=== PATIENT | male | born 1985 ===

== ENCOUNTER 2020-09-10 08:29 | Outpatient (REF) | payer MEDICARE, MEDICAID, SELFPAY | END 2020-09-10 08:30 | disposition home or self-care (01) | LOC: HO.LAB 08:29 | PROVIDERS: PCP Family Medicine; Visit Provider Internal Medicine | DX: Z20.828 Contact with and (suspected) exposure to other viral communicable diseases (principal) | CPT/HCPCS: C9803; U0003 ==

== ENCOUNTER → 2020-09-16 11:01 | Outpatient (BNVA) | payer MEDICARE, MEDICAID, SELFPAY | PROVIDERS: PCP Family Medicine; Referring Provider Family Medicine; Visit Provider Physician Assistant | DX: R10.31 Right lower quadrant pain (principal); K62.5 Hemorrhage of anus and rectum; K64.9 Unspecified hemorrhoids | CPT/HCPCS: Q3014 ==

== ENCOUNTER 2020-09-17 09:14 | Outpatient (REF) | payer MEDICARE, MEDICAID, SELFPAY ==
[2020-09-17 10:13] LABS: MANUAL DIFF FLAG NO
[2020-09-17 10:17] LABS: Basophils Percent Auto 0.4 % (0-2); Eosinophils Absolute Auto 0.1 X10*3/uL (0.0-0.4); Eosinophils Percent Auto 1.2 % (0-4); Hematocrit 45.6 % (42-52); Hemoglobin 14.6 g/dl (14.0-18.0); Imm Gran Abs Auto 0.05 X10*3/uL (0.00-0.03); Imm Gran Pct Auto 0.7 % (0.0-0.4); Lymphocytes Absolute Auto 1.5 X10*3/uL (1.2-4.9); Lymphocytes Percent Auto 22.2 % (20-40); Mean Corpuscular Volume 87.4 fL (80-98); Mean Platelet Volume 11.2 fL (9.4-12.4); Monocytes Absolute Auto 0.4 X10*3/uL (0.1-1.2); Monocytes Percent Auto 5.8 % (2-11); Neutrophils Absolute Auto 4.9 X10*3/uL (2.0-8.3); Neutrophils Percent Auto 69.7 % (45-73); Platelet Count 280 X10*3/uL (160-400); Red Blood Count 5.22 X10*6/uL (4.60-5.80); Red Cell Distribution Width 12.1 % (11.0-16.0)
[2020-09-17 11:06] LABS: Alanine Aminotransferase 30 U/L (0-40); Albumin Level 4.1 g/dL (3.5-5.0); Alkaline Phosphatase 98 U/L (39-117); Anion Gap 11 (12-20); Aspartate Amino Transferase 19 U/L (5-37); Bilirubin Total 0.6 mg/dL (0.0-1.0); Blood Urea Nitrogen 14 mg/dL (9-16); Calcium 8.7 mg/dL (8.4-10.2); Carbon Dioxide 25 mmol/L (22-29); Chloride 104 mmol/L (96-108); Estimated Glomerular Filt Rate > 60; Glucose Random 108 mg/dL (60-115); Potassium 4.3 mmol/l (3.3-5.1); Sodium 136 mmol/L (135-145)
[2020-09-17 11:07] LABS: Thyroid Stimulating Hormone 0.83 uIU/mL (0.32-4.0)
[2020-09-18 17:56] LABS: CRP High Sensitivity 5.4 mg/L
== END 2020-09-17 09:15 | disposition home or self-care (01) ==
LOC: HO.LAB 09:14
PROVIDERS: PCP Family Medicine; Visit Provider Physician Assistant
DX: K59.09 Other constipation (principal); R10.11 Right upper quadrant pain; R10.31 Right lower quadrant pain; R19.7 Diarrhea, unspecified; I10 Essential (primary) hypertension
CPT/HCPCS: 36415; 80053; 84443; 85025; 86141

== ENCOUNTER 2020-09-30 11:52 | Outpatient (REF) | payer MEDICARE, MEDICAID, SELFPAY ==
--- NOTE | 2020-09-30 11:53 | CT_ITS ---
EXAMINATION: CT ENTEROGRAPHY ABDOMEN AND PELVIS WITH CONTRAST CLINICAL INFORMATION: Right lower quadrant pain. COMPARISON: 01/12/2019 CT scan of the abdomen and pelvis. TECHNIQUE: Study performed with oral VoLumen (1350 mL) and 480 mL of water to distend the abdomen. The patient was injected with 85 mL Omnipaque 350 intravenous contrast which was administered without adverse effect. Coronal and sagittal reformatted images were obtained at the technologist's workstation. This CT examination was performed using dose optimization techniques as appropriate, variously including the following: *Automated exposure control *Adjustment of mA and/or kV according to patient size (this includes techniques or standardized protocols for targeted exams where dose is matched to indication/reason for exam; i.e. extremities or head) *Use of iterative reconstruction technique DLP: 1032 mGy-cm FINDINGS: GASTROINTESTINAL FINDINGS: Stomach: Well-distended and normal in appearance. Small intestine: Satisfactorily distended and normal in appearance. Large intestine: Well-distended and normal in appearance. No perirectal changes demonstrated. The appendix is normal. Additional findings: No abnormal enhancement of the vasa recta or significant mesenteric or retroperitoneal lymphadenopathy is seen. No abdominal abscess or fistulous tract demonstrated. ABDOMINAL AND PELVIC CT FINDINGS: Liver, gallbladder, biliary tract: Unremarkable. Pancreas: Unremarkable. Spleen: 14.9 cm in cc dimension without focal abnormality. Adrenal glands: Right adrenal gland measuring approximately 1.4 cm (image 26, series 7). No left adrenal abnormality. Kidneys/ureters: Urinary bladder: Unremarkable. Lymphovascular structures: Unremarkable. Bones: T11-T12 and L5-S1 mild degenerative disc disease. Lung bases: Unremarkable. CT/CT enterography IMPRESSION: 1. No evidence for acute appendicitis. Previously seen high attenuation foci in the appendix lumen are no longer visualized and likely represented residual contrast. No other significant bowel abnormality. 2. Small right adrenal nodule remains indeterminate on this single phase study, but the interval stability favors benignity and likely represents an adrenal adenoma. 3. Borderline splenic enlargement without significant change.
[2020-09-30] MEDS: iohexoL 350 MG/ML 100 ML INFUS..BTL 85 ML IV (14:01)
== END 2020-09-30 11:53 | disposition home or self-care (01) ==
LOC: HO.US 11:52
PROVIDERS: PCP Family Medicine; Visit Provider Physician Assistant
DX: R10.31 Right lower quadrant pain (principal); R79.82 Elevated C-reactive protein (CRP)
CPT/HCPCS: 74177; J9999; Q9967

== ENCOUNTER 2020-10-01 08:07 | Outpatient (REF) | payer MEDICARE, MEDICAID, SELFPAY ==
--- NOTE | 2020-10-01 | US_ITS ---
EXAMINATION: US ABDOMEN COMPLETE CLINICAL INFORMATION: Right upper quadrant pain. COMPARISON: CT abdomen and pelvis 01/12/2019. X-ray abdomen 09/10/2012 and 02/04/2011. Ultrasound abdomen 05/18/2011 and 11/04/2009. TECHNIQUE: Real-time imaging of the abdominal viscera. FINDINGS: PANCREAS: Normal. ABDOMINAL AORTA: The proximal, mid, and distal segments are normal in caliber. INFERIOR VENA CAVA: Visualized portions are normal. LIVER: The liver is normal in size. The liver contour is normal. There is mild increased echogenicity of the liver. No focal hepatic lesion. There is no intrahepatic biliary duct dilatation seen. GALLBLADDER: Normal. The gallbladder is physiologically distended without evidence of stones, sludge, polyps, wall thickening or pericholecystic fluid. COMMON BILE DUCT: Normal in caliber measuring 0.3 cm in diameter. RIGHT KIDNEY: Normal. No hydronephrosis. No renal calculi or focal parenchymal lesions. The kidney measures 12.9 cm in maximum dimension. LEFT KIDNEY: Normal. No hydronephrosis. No renal calculi or focal parenchymal lesions. The kidney measures 13.0 cm in maximum dimension. SPLEEN: Normal. The spleen measures 12.6 cm in maximum dimension. FREE FLUID: None. US/US abdomen complete IMPRESSION: Hepatic steatosis, otherwise no focal lesion seen.
== END 2020-10-01 08:08 | disposition home or self-care (01) ==
LOC: HO.US 08:07
PROVIDERS: PCP Family Medicine; Visit Provider Family Medicine
DX: R10.11 Right upper quadrant pain (principal)
CPT/HCPCS: 76700

== ENCOUNTER → 2020-10-07 15:27 | Outpatient (BNVA) | payer MEDICARE, MEDICAID, SELFPAY | PROVIDERS: PCP Family Medicine; Visit Provider Physician Assistant | DX: R10.31 Right lower quadrant pain (principal) | CPT/HCPCS: Q3014 ==

== ENCOUNTER → 2020-11-18 13:42 | Outpatient (BNVA) | payer MEDICARE, MEDICAID, SELFPAY | PROVIDERS: PCP Family Medicine; Referring Provider Family Medicine; Visit Provider Physician Assistant | DX: R79.82 Elevated C-reactive protein (CRP) (principal); R10.31 Right lower quadrant pain | CPT/HCPCS: Q3014 ==

== ENCOUNTER 2020-12-24 12:15 | Day surgery (SDC) | payer MEDICARE, MEDICAID, SELFPAY ==
[2020-12-19 12:12] VITALS: BMI 41.8
--- NOTE | 2020-12-22 14:45 | P.CONAN_ITS ---
Documented by User: Vaishnavi Brothers 12/23/20 12:06 HPI - Anesthesia Eval Consult details Narrative: 35yo M for Colonoscopy PMFSH Active Problems Active Problems: All Active Problems (Updated 12/19/20 @ 14:36 by Dora Haywood) RLQ abdominal pain (Acute) Elevated C-reactive protein (CRP) (Acute) HTN (hypertension) (Acute) Past Medical History Medical History (Updated 12/19/20 @ 14:36 by Dora Haywood) Abdominal pain Anxiety History of palpitations HTN (hypertension) Paroxysmal atrial fibrillation Sleep apnea SVT (supraventricular tachycardia) Family History Family History Father Alive and well Mother Family history of high blood pressure Surgical History Surgical History (Updated 12/19/20 @ 12:08 by Dora Haywood) H/O cardiac radiofrequency ablation History of adjustable gastric banding History of colonoscopy History of removal of laparoscopic gastric banding device Hx of endoscopy Social History Social History (Updated 12/19/20 @ 12:08 by Dora Haywood) Alcohol intake: never Smoking Status: Former smoker Smoking Quit Date: 2004 Use of substances other than those prescribed or required for medical reasons: No Have you been hit, kicked, punched, or otherwise hurt by someone within the past year? If so, by whom?: No Advance Directives: No Advance Directives Information Provided: No Advance Directives on File: No Meds Allergies Allergy/AdvReac Type Severity Reaction Status Date / Time Penicillins Allergy Intermediate RASH Verified 12/19/20 11:57 Home Medications Medication Instructions Recorded Confirmed Last Taken Type metoprolol succinate 50 mg 50 mg PO DAILY 09/16/20 12/19/20 Unknown History tablet,extended release 24 hr pregabalin 75 mg capsule 75 mg PO DAILY 10/08/20 12/19/20 Unknown History clonazepam 0.5 mg tablet 0.5 mg PO DAILY 11/18/20 12/19/20 Unknown History dicyclomine 10 mg PO BID PRN 12/19/20 12/19/20 Unknown History Exam Exam Date and Time: December 22, 2020 1445 Height,Weight and Vital Signs: Height 5 ft 11 in Weight 136.078 kg Pertinent Lab Results Pertinent Lab Results: Laboratory Tests 09/17/20 09/17/20 09:26 09:26 WBC 7.0 Hgb 14.6 Hct 45.6 Plt Count 280 Sodium 136 Potassium 4.3 Chloride 104 Carbon Dioxide 25 BUN 14 Creatinine 0.89 Narrative Narrative: Echo 2019 Nml LV size, wall thickness and systolic function. LVEF 55-60%. Nml LV diastolic function. Nml RV size and function No significant valve abnormalities Assessment and Plan Assessment Anesthesia Assessment: Chart Reviewed Documented by User: Jen Arias 12/24/20 13:28 [facility] Past Medical History Medical History (Updated 12/19/20 @ 14:36 by Dora Haywood) Abdominal pain Anxiety History of palpitations HTN (hypertension) Paroxysmal atrial fibrillation Sleep apnea SVT (supraventricular tachycardia) Family History Family History Father Alive and well Mother Family history of high blood pressure Surgical History Surgical History (Updated 12/19/20 @ 12:08 by Dora Haywood) H/O cardiac radiofrequency ablation History of adjustable gastric banding History of colonoscopy History of removal of laparoscopic gastric banding device Hx of endoscopy Social History Social History (Updated 12/19/20 @ 12:08 by Dora Haywood) Alcohol intake: never Smoking Status: Former smoker Smoking Quit Date: 2004 Use of substances other than those prescribed or required for medical reasons: No Have you been hit, kicked, punched, or otherwise hurt by someone within the past year? If so, by whom?: No Advance Directives: No Advance Directives Information Provided: No Advance Directives on File: No Meds Allergies Allergy/AdvReac Type Severity Reaction Status Date / Time Penicillins Allergy Intermediate RASH Verified 12/19/20 11:57 Home Medications Medication Instructions Recorded Confirmed Last Taken Type metoprolol succinate 50 mg 50 mg PO DAILY 09/16/20 12/19/20 Unknown History tablet,extended release 24 hr pregabalin 75 mg capsule 75 mg PO DAILY 10/08/20 12/19/20 Unknown History clonazepam 0.5 mg tablet 0.5 mg PO DAILY 11/18/20 12/19/20 Unknown History dicyclomine 10 mg PO BID PRN 12/19/20 12/19/20 Unknown History Exam Airway Mallampati Class: II TM Dist: >3cm Neck ROM: Full Heart: RRR Lungs: CTAcBL Assessment and Plan Assessment Anesthesia Assessment: Anesthesia Plan Discussed and Chart Reviewed Final Anesthetic Review NPO: Yes (Sip water meds) ASA Class: III Final Preanesthetic Review: No Changes in Pt Med Stat and Consent Obtained/Reviewed Patient Risk: Intermediate Procedure Risk: Intermediate Anesthetic Plan Anesthetic Plan: MAC: Disposition: Standard PACU
[2020-12-24 12:43] VITALS: BP 162/93; PULSE 85; RESP 20; TEMP 37.1; O2SAT 98; BMI 41.8
[2020-12-24] MEDS: Lactated Ringers 1,000 ML 100 ML IVCONT (13:19)
--- NOTE | 2020-12-24 13:20 | P.HPSUR_ITS ---
Pre-Procedural Eval Section B Chief Complaint: right lower quadrant pain Relevant Family History (Specify if Yes): No Relevant Social History: None Present Medications: see Short Stay Collaborative assessment Medical History: Significant History (Abdominal pain Anxiety History of palpitations HTN (hypertension) Paroxysmal atrial fibrillation Sleep apnea SVT (supraventricular tachycardia)) History of Previous Operations: Relevant previous surgery/procedure and date(s) (gastric banding, cardiac ablation) Allergies: Allergies Allergy/AdvReac Type Severity Reaction Status Date / Time Penicillins Allergy Intermediate RASH Verified 12/19/20 11:57 Review of Systems Sugical H&P ROS: Negative: Constitution, Cardiovascular, Respiratory, Neurological, Psychiatric, Hem-Onc, Allergic/Immunologic, Gastrointestinal, Genitourinary, Musculoskeletal, Integumentary, Endocrine and Eyes/Ears/Nos e/Throat Exam Surgical H&P Exam: Normal: HEENT, Normal: Heart, Normal: Lungs, Normal: Extremities, Normal: Abdomen, Normal: Skin and Normal: Neurological Plan Diagnosis/Plan: Unchanged I have reviewed the history and physical and performed a pertinent physical examination on my patient. No changes have occurred unless specified.
--- NOTE | 2020-12-24 13:21 | PM.OP ---
Brief Operative Note Date of Service: 12/24/20 Pre-op diagnosis: RLQ pain and diarrhea Post-op diagnosis: same Procedure: see op note Surgeon: Rola Alfred MD Anesthesia: MAC Estimated blood loss (mL): 0 Condition: stable Disposition: PACU
--- NOTE | 2020-12-24 13:22 | P.OP_ITS ---
Operative Note Operative Note Date of Service: 12/24/20 Narrative: Operative Information Procedure Description: Colonoscopy COLONOSCOPY Instrument: Olympus variable stiffness pediatric scope 190L Colonoscopy Monitoring: Vital signs and clinical assessment, continuous EKG monitoring, Pulse oximetry, Carbon Dioxide monitoring and blood pressure monitoring were done throughout the procedure. Colon withdrawal time was 12 minutes. Procedure: The patient was placed in the left lateral decubitis position and pre-procedure medications were administered. After a digital rectal examination of the ano-rectum, the video colonoscope was inserted into the rectum and advanced through the colon to the cecum/TI. The colonoscope was slowly withdrawn in a retrograde panoramic fashion and the colon mucosa was carefully examined including a retroflexed view of the rectum. Findings and interventions are described below. Procedure Difficulty: easy Findings: Terminal Ileum-nodular lymphoid hyperplasia, bx taken of TI bx taken from right colon, transverse/left and rectum in separate jars Cecum:normal Ascending Colon: normal Transverse Colon -normal Descending Colon:normal Sigmoid Colon: normal Rectum: Retroflexion with small internal hemorrhoids, grade I Anorectum - normal Colon preparation: [place] Bowel Preparation Scale Right colon; 2 Transverse colon: 2 Left colon; 2 (0 = Unprepared colon segment with mucosa not seen due to solid stool that cannot be cleared. 1 = Portion of mucosa of the colon segment seen, but other areas of the colon segment not well seen due to staining, residual stool and/or opaque liquid. 2 = Minor amount of residual staining, small fragments of stool and/or opaque liquid, but mucosa of colon segment seen well. 3 = Entire mucosa of colon segment seen well with no residual staining, small fragments of stool or opaque liquid) Impression and Post Procedure Diagnosis: internal hemorrhoids Plan: High fiber diet leaflet Avoid straining at stool, epsom salts and sitz bath, anusol supps or cream Repeat Colonoscopy aged 45 yrs of age or earlier if clinically indicated consider CTe or MRe if ongoing sx, check immunoglobulins for CVID Above findings were reviewed with the patient and relevant handouts were provided if indicated.
[2020-12-24 15:04] VITALS: BP 146/95; PULSE 88; RESP 14; TEMP 36.2; O2SAT 100
[2020-12-24 15:19] VITALS: BP 147/90; PULSE 80; RESP 17; O2SAT 100
[2020-12-24 15:34] VITALS: BP 154/85; PULSE 66; RESP 17; O2SAT 98
== END 2020-12-24 15:58 | disposition home or self-care (01) ==
PROVIDERS: PCP Family Medicine; Visit Provider Internal Medicine Gastroenterology
PROC: 0DJD8ZZ Inspection of Lower Intestinal Tract, Via Natural or Artificial Opening Endoscopic (ICD-10-PCS; CPT 45378; principal; 2020-12-24 14:00)
DX: R10.31 Right lower quadrant pain (principal); R19.7 Diarrhea, unspecified; K63.89 Other specified diseases of intestine; K64.0 First degree hemorrhoids; R79.82 Elevated C-reactive protein (CRP); I10 Essential (primary) hypertension; G47.33 Obstructive sleep apnea (adult) (pediatric); Z98.84 Bariatric surgery status; Z79.899 Other long term (current) drug therapy; Z88.0 Allergy status to penicillin
CPT/HCPCS: 45380; 88305; J2250

== ENCOUNTER → 2021-01-07 10:41 | Outpatient (BNVA) | payer MEDICARE, MEDICAID, SELFPAY | PROVIDERS: PCP Family Medicine; Visit Provider Physician Assistant | DX: Z13.89 Encounter for screening for other disorder (principal) | CPT/HCPCS: Q3014 ==

== ENCOUNTER → 2021-04-22 09:32 | Outpatient (BNVA) | payer MEDICARE, MEDICAID, SELFPAY | PROVIDERS: PCP Family Medicine; Visit Provider Physician Assistant | CPT/HCPCS: Q3014 ==

== ENCOUNTER 2021-04-24 15:43 | Outpatient (REF) | payer MEDICARE, MEDICAID, SELFPAY ==
--- NOTE | ~2021-04-24 | XR_ITS ---
EXAMINATION: XR KNEE, RIGHT CLINICAL INFORMATION: Right knee pain. COMPARISON: 03/22/2013 TECHNIQUE: 4 view right knee study. FINDINGS: There is no evidence of acute fracture or dislocation of the right knee. There is a small right knee effusion. Joint spaces are maintained. No destructive bony lesions. There appears be some edema seen involving the patellar tendon. Bone island is seen within the proximal tibia. XR/XR knee RT 4V IMPRESSION: No significant bony abnormality of the right knee. Small right knee effusion. Appearance of edematous change involving the patellar tendon.
== END 2021-04-24 15:44 | disposition home or self-care (01) ==
LOC: HO.XRAY 15:43
PROVIDERS: PCP Family Medicine; Visit Provider Family Medicine
DX: M25.561 Pain in right knee (principal)
CPT/HCPCS: 73564

== ENCOUNTER 2021-05-09 14:29 | Emergency (ER) | payer MEDICARE, MEDICAID, SELFPAY ==
[2021-05-09 14:33] VITALS: BP 146/92; PULSE 86; RESP 16; TEMP 36.7; O2SAT 97; BMI 40.4
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
[2021-05-09] MEDS: diphenhydrAMINE HCL 25 MG TABLET 50 MG PO (15:16)
[2021-05-09] MEDS: predniSONE 20 MG TABLET 40 MG PO (15:17)
[2021-05-09] MEDS: Ibuprofen 600 MG TABLET PO (15:17)
== END 2021-05-09 15:20 | disposition home or self-care (01) ==
PROVIDERS: Emergency Provider Emergency Medicine; PCP Family Medicine
DX: T63.441A Toxic effect of venom of bees, accidental (unintentional), initial encounter (principal); Y92.9 Unspecified place or not applicable
CPT/HCPCS: 99283; Q0163

== ENCOUNTER 2021-06-13 11:21 | Emergency (ER) | payer MEDICARE, MEDICAID, SELFPAY ==
[2021-06-13 11:34] VITALS: BP 148/99; PULSE 86; RESP 16; TEMP 36.9; O2SAT 99; BMI 41.8
--- NOTE | 2021-06-13 12:25 | ED_ITS ---
HPI - Back Pain/Injury General Chief Complaint: Back Pain/Injury Stated Complaint: back pain Time Seen by Provider: 06/13/21 12:18 Source: patient Mode of arrival: ambulatory Limitations: no limitations History of Present Illness MD elicited complaint: back pain Pertinent past history: prior back pain Onset (ago): day(s) Timing: constant and progressively worsening Severity: severe Pain scale (0-10): 10 Similar Symptoms Previously: Yes Quality: stabbing, aching and throbbing Location: lumbar spine Radiation: buttocks, left upper leg and right upper leg Exacerbating factors: movement, walking and lifting Relieving factors: none Associated symptoms: denies other symptoms Treatments prior to arrival: other (He has tried [id number] medication along with baclofen and gabapentin and no symptomatic relief) Work related injury: No Related Data Home Medications Medication Instructions Recorded Confirmed metoprolol succinate 50 mg 50 mg PO DAILY 09/16/20 04/22/21 tablet,extended release 24 hr clonazepam 0.5 mg tablet 0.5 mg PO DAILY 11/18/20 04/22/21 Previous Rx's Medication Instructions Recorded dicyclomine 10 mg capsule 10 mg PO BID PRN #60 cap 04/21/21 diphenhydramine HCl 25 mg capsule 25 - 50 mg PO Q6H PRN #20 cap 05/09/21 ibuprofen 600 mg tablet 600 mg PO Q6H PRN #20 tab 05/09/21 acetaminophen 500 mg tablet 1,000 mg PO QID PRN #14 tab 06/13/21 (Tylenol Extra Strength) cyclobenzaprine 10 mg tablet 10 mg PO Q8H #10 tab 06/13/21 ibuprofen 800 mg tablet 800 mg PO Q8H PRN #14 tab 06/13/21 lidocaine HCl 4 % topical cream 1 appl TOPICAL BID PRN #120 g 06/13/21 (Aspercreme (lidocaine HCl)) oxycodone 5 mg tablet 5 mg PO BID PRN #14 tab 06/13/21 Allergies Allergy/AdvReac Type Severity Reaction Status Date / Time Penicillins Allergy Intermediate RASH Verified 06/13/21 11:40 Review of Systems Review of Systems: Constitutional : No trauma, No Weight loss, No Fever, No Chills, ENT/Mouth : No Hearing loss, No Ear Pain, No Nasal Congestion, No Sinus Pain, No Hoarseness, No sore throat, No Rhinorrhea, No Swallowing Difficulty Cardiovascular : No Chest Pain, No SOB Respiratory : No Cough, No Dyspnea Gastrointestinal : No Nausea, No Vomiting, No Diarrhea, No abdominal Pain, No Hematochezia, No Melena Genitourinary : No Dysuria, No Urinary Frequency, No Hematuria, No Urinary or Bowel Incontinence/retention Musculoskeletal : + Back pain, No neck pain, No joint stiffness, No joint swelling Skin : No Skin Lesions, No rash or signs of infection Neuro : No Weakness, No radiation, No Numbness, No Paresthesias, No headache, no loss of bowel or bladder incontinence, no saddle anesthesia, Focal weakness, No radiation Denies history of IV drug usage. Yes all other systems are reviewed and are negative [facility] Past Medical History Attestation statement: The following information was validated with the patient. Medical History Abdominal pain Anxiety History of palpitations HTN (hypertension) Paroxysmal atrial fibrillation Sleep apnea SVT (supraventricular tachycardia) Surgical History H/O cardiac radiofrequency ablation History of adjustable gastric banding History of colonoscopy History of removal of laparoscopic gastric banding device Hx of endoscopy Family History Family History Father Alive and well Mother Family history of high blood pressure Social History Social History Household Members: Spouse and Children Alcohol intake: never Advance Directives: No Advance Directives Information Provided: Yes Current occupational status: unemployed Physical Exam 2 Vital Signs: Vital Signs: Last Vital Signs Temp 98.4 F 06/13/21 11:34 Pulse 86 06/13/21 11:34 Resp 16 06/13/21 11:34 BP 148/99 H 06/13/21 11:34 Pulse Ox 99 06/13/21 11:34 Body Mass Index 41.8 vital signs have been reviewed as normal and appeared to be correct. Blood pressure normal. Heart rate normal. Respiration rate normal. Temperature normal. Oxygen saturation normal. Appearance: Alert. Oriented X3. No acute distress. Head: Normal external exam. Normocephalic. Atraumatic. No Sanches signs noted. No raccoon eyes noted Eyes: PERRLA. EOMI. Conjunctiva and sclera normal. Eyelids normal. ENT: EAC normal. TM's Normal. Pharynx normal. Uvula midline. Moist mucous membranes. No trismus noted. No drooling noted. No muffled voice noted. Neck: Normal inspection. Neck supple. FROM. No adenopathy. Thyroid Normal. No meningeal signs. No neck mass noted. CVS: Normal heart rate and rhythm. Heart sound normal. No murmurs noted. Pulses normal throughout. Respiratory: No respiratory distress. Painless inspiration. Breath sounds normal. No wheezes/rales/rhonchi noted. Chest nontender. No accessory muscle usage noted or decreased air movement noted. Abdomen: Soft and nontender. Bowel sounds normal in all 4 quadrants. No distention noted. No organomegaly noted. No visible injury noted. Back: No CVA tenderness. Full range of motion noted. No obvious deformities, or edema. Mild para-spinal muscular tenderness from lumbar region to coccyx. Full ROM in back and lower extremities. 5/5 strength hip extension/flexion, abduction, adduction. Mild Lumbar pain with hip flexion against resistance. Straight leg raise test negative on right; Straight leg raise test negative on left; Reflexes normal ankle and knee bilaterally; EHL motor strength normal bilaterally. No rashes/lesion/induration/fluctuance or signs infection noted. Skin: Skin warm and dry. Normal skin color. Normal skin turgor. No rashes/lesions/lacerations noted. Extremities: No lower extremity edema. Extremities exhibit normal range of motion. Extremities nontender. Neuro: Oriented X 3. No motor deficit. No sensory deficit. Reflexes normal. Patient has a normal steady gait. Course Course Course Narrative: Pt c likely muscular pain, but could be herniated disc. Neuro exam shows no deficits. Not c/w AAA/epidural abscess/dissection.No high risk Hx (Incont, fever, immunosupp, recent surgery/LP, coag, signif trauma, wt loss, puls mass, hx/o Ca, TB, or IVDU) to warrant MRI/CT today. Not c/w Pyelo/UTI/kidney stone/spinal fx. Not cauda equina syndrome. Imaging not currently indicated. DC c meds and f/u. MDM - Back Pain/Injury Medical Records Attestation: I reviewed the patient's medical records. Discharge Plan Discharge Clinical Impression: Lumbar radiculopathy, Strain of lumbar region Patient Disposition: Home, Self-Care Instructions: Lumbar Radiculopathy (ED), Lower Back Exercises (ED) Prescriptions: New lidocaine HCl [Aspercreme (lidocaine HCl)] 4 % cream 1 appl topical BID PRN (Reason: pain) Qty: 120 RF: 0 cyclobenzaprine 10 mg tablet 10 mg PO Q8H Qty: 10 RF: 0 ibuprofen 800 mg tablet 800 mg PO Q8H PRN (Reason: pain) Qty: 14 RF: 0 acetaminophen [Tylenol Extra Strength] 500 mg tablet 1,000 mg PO QID PRN (Reason: fever or pain) Qty: 14 RF: 0 oxycodone 5 mg tablet 5 mg PO BID PRN (Reason: pain) Qty: 14 RF: 0 No Action dicyclomine 10 mg capsule 10 mg PO BID PRN (Reason: Abdominal Pain) Qty: 60 RF: 0 diphenhydramine HCl 25 mg capsule 25 - 50 mg PO Q6H PRN (Reason: allergic reaction) Qty: 20 RF: 0 ibuprofen 600 mg tablet 600 mg PO Q6H PRN (Reason: pain) Qty: 20 RF: 0 metoprolol succinate 50 mg tablet extended release 24 hr 50 mg PO DAILY RF: 0 clonazepam 0.5 mg tablet 0.5 mg PO DAILY RF: 0 Referrals: Traci Ruiz MD [Primary Care Provider] - 2 days Print Language: Spanish
== END 2021-06-13 12:48 | disposition home or self-care (01) ==
PROVIDERS: Emergency Provider Emergency Medicine; PCP Family Medicine
DX: M54.16 Radiculopathy, lumbar region (principal); S39.012A Strain of muscle, fascia and tendon of lower back, initial encounter; X58.XXXA Exposure to other specified factors, initial encounter; Y93.9 Activity, unspecified; Y92.9 Unspecified place or not applicable; Y99.9 Unspecified external cause status
CPT/HCPCS: 99283

== ENCOUNTER → 2021-06-24 12:03 | Outpatient (BNVA) | payer MEDICARE, MEDICAID, SELFPAY | PROVIDERS: PCP Family Medicine; Visit Provider Physician Assistant | DX: Z13.89 Encounter for screening for other disorder (principal) | CPT/HCPCS: Q3014 ==

== ENCOUNTER 2022-03-13 08:22 | Emergency (ER) | payer OTHER, SELFPAY | END 2022-03-13 10:55 | disposition left against medical advice (07) | PROVIDERS: Emergency Provider Emergency Medicine; PCP Family Medicine | DX: H57.9 Unspecified disorder of eye and adnexa (principal) ==

== ENCOUNTER 2022-03-13 12:09 | Emergency (ER) | payer OTHER, SELFPAY ==
[2022-03-13 12:51] VITALS: BP 142/88; PULSE 76; RESP 18; TEMP 36; O2SAT 98; BMI 38.7
[2022-03-13] MEDS: Tetracaine HCl/PF 0.5% Oph Sol 4 ML DROPS 3 DROP EYE-LEFT (15:21)
[2022-03-13] MEDS: Fluorescein Sodium STRIP 1 STRIP EYE-LEFT (15:21)
--- NOTE | 2022-03-13 15:24 | ED.EYEPROB ---
HPI - Eye Problem General Chief complaint: Eye Problems Stated complaint: F/B Right Eye Time Seen by Provider: 03/13/22 15:10 Source: patient Mode of arrival: ambulatory Limitations: no limitations History of Present Illness HPI Narrative: Patient presents emergency department for evaluation of a foreign body to his left eye. He reports that 2 days ago he was working on his car when he felt something fall into his eye. Since then he has been feeling burning pain, itchiness, and redness. He presented to an urgent care today, where he was found to have 2 foreign bodies present. A single foreign body was removed with a needle, but the 2nd was unable to be removed. He was advised to come to the emergency department for further evaluation. He is a contact lens wear, but is not currently wearing his contact lenses. MD chief complaint: eye pain, eye redness and eye injury Onset (ago): day(s) Duration: constant Location: left eye Eye Symptoms: burning, redness, pain, foreign body sensation and itching Related Data Home Medications Medication Instructions Recorded Confirmed metoprolol succinate 50 mg 50 mg PO DAILY 09/16/20 04/22/21 tablet,extended release 24 hr clonazepam 0.5 mg tablet 0.5 mg PO DAILY 11/18/20 04/22/21 Previous Rx's Medication Instructions Recorded dicyclomine 10 mg capsule 10 mg PO BID PRN #60 cap 04/21/21 diphenhydramine HCl 25 mg capsule 25 - 50 mg PO Q6H PRN #20 cap 05/09/21 ibuprofen 600 mg tablet 600 mg PO Q6H PRN #20 tab 05/09/21 acetaminophen 500 mg tablet 1,000 mg PO QID PRN #14 tab 06/13/21 (Tylenol Extra Strength) cyclobenzaprine 10 mg tablet 10 mg PO Q8H #10 tab 06/13/21 ibuprofen 800 mg tablet 800 mg PO Q8H PRN #14 tab 06/13/21 lidocaine HCl 4 % topical cream 1 appl TOPICAL BID PRN #120 g 06/13/21 (Aspercreme (lidocaine HCl)) oxycodone 5 mg tablet 5 mg PO BID PRN #14 tab 06/13/21 tobramycin 0.3 % eye drops 2 drp OPHTHALMIC-LEFT Q6H 5 Days 03/13/22 #5 ml Allergies Allergy/AdvReac Type Severity Reaction Status Date / Time Penicillins Allergy Intermediate RASH Verified 03/13/22 12:53 Review of Systems Review of Systems: Eye: Positive pain. Positive redness. Positive foreign body sensation. Yes all other systems are reviewed and are negative [facility] Past Medical History Attestation statement: The following information was validated with the patient. Source: old records reviewed Medical History Abdominal pain Anxiety History of palpitations HTN (hypertension) Paroxysmal atrial fibrillation Sleep apnea SVT (supraventricular tachycardia) Surgical History H/O cardiac radiofrequency ablation History of adjustable gastric banding History of colonoscopy History of removal of laparoscopic gastric banding device Hx of endoscopy Family History Family History Father Alive and well Mother Family history of high blood pressure Social History Social History Household Members: Spouse and Children Alcohol intake: never Advance Directives: No Advance Directives Information Provided: No Current occupational status: unemployed Physical Exam Vital Signs: Vital Signs: Last Vital Signs Temp 96.8 F 03/13/22 12:51 Pulse 76 03/13/22 12:51 Resp 18 03/13/22 12:51 BP 142/88 H 03/13/22 12:51 Pulse Ox 98 03/13/22 12:51 BMI result Body Mass Index 38.7 Vital signs have been reviewed as normal and appeared to be correct. Blood pressure normal.? Heart rate normal.? Respiration rate normal. Temperature normal.? Oxygen saturation normal. Appearance: Alert.?Oriented to person, place and time. No acute distress.?Normal affect. Eyes: Pupils equal, round and reactive to light. EOMi. Left sclera significantly injected, conjunctival erythema. One very small foreign body present in the to the cornea injury, just over the iris, corneal abrasion inferior to the iris was fluroscein uptake ENT: Pharynx normal.?? Neck: Normal inspection.? Neck supple.?? CVS: Heart sounds normal. Normal heart rate and rhythm.? Pulses normal.?? Respiratory: No respiratory distress.? Lung sounds clear to auscultation bilaterally?? Abdomen: Soft and non-tender. Skin: Skin warm and dry.? Normal skin color.? ?? Extremities: No lower extremity edema.? Neuro: Moves all extremities spontaneously. Sensation intact bilaterally. No motor deficits. Ambulates with normal steady gait. Course Course Course Narrative: Patient is a 36-year-old male presents emergency department for evaluation of left eye foreign body sensation and redness. On exam there was a visible foreign body to the cornea, use of a cotton tip swab was able to remove a small black foreign body, but appears to still have presence of foreign body that is unable to be removed. Fluorescein stain reveals a significant corneal abrasion inferior to the iris. Patient reports that he has been rubbing his eyes a lot since this happened. Not consistent with periorbital cellulitis, orbital cellulitis, or hyphema. Visual acuity is intact. Discussed plan of care with patient to avoid rubbing on eyes, ophthalmic antibiotic drops, not to wear contact lenses, advised reasons return back to the emergency department, and advised follow-up with Ophthalmology Dr. Aguillon in 2-3 days. [facility] - Eye Problem Medical Records Attestation: I reviewed the patient's medical records. Discharge Plan Discharge Clinical Impression: Acute foreign body of cornea, Corneal abrasion Patient Disposition: Home, Self-Care Instructions: Corneal Abrasion (ED), Eye Foreign Body (ED) Additional Instructions: We were able to remove part of the foreign body from URI in the emergency department, it appears as though there is a small amount of foreign body that remains that was unable to be removed. You also have an abrasion/scratch of your cornea. You have been given antibiotic eyedrops to take for this. Take them 4 times a day for 5 days. Contact the eye doctors office on Tuesday morning to arrange for a follow-up appointment for evaluation. Return to the emergency department with any new or worsening symptoms or concerns Prescriptions: New tobramycin 0.3 % drops 2 drp ophthalmic-Left Q6H 5 Days Qty: 5 0RF No Action dicyclomine 10 mg capsule 10 mg PO BID PRN (Reason: Abdominal Pain) Qty: 60 0RF Rx Instructions: Take 1 tablet daily, may increase to b.i.d.prn diphenhydramine HCl 25 mg capsule 25 - 50 mg PO Q6H PRN (Reason: allergic reaction) Qty: 20 0RF ibuprofen 600 mg tablet 600 mg PO Q6H PRN (Reason: pain) Qty: 20 0RF lidocaine HCl [Aspercreme (lidocaine HCl)] 4 % cream 1 appl topical BID PRN (Reason: pain) Qty: 120 0RF cyclobenzaprine 10 mg tablet 10 mg PO Q8H Qty: 10 0RF ibuprofen 800 mg tablet 800 mg PO Q8H PRN (Reason: pain) Qty: 14 0RF acetaminophen [Tylenol Extra Strength] 500 mg tablet 1,000 mg PO QID PRN (Reason: fever or pain) Qty: 14 0RF oxycodone 5 mg tablet 5 mg PO BID PRN (Reason: pain) Qty: 14 0RF metoprolol succinate 50 mg tablet extended release 24 hr 50 mg PO DAILY 0RF clonazepam 0.5 mg tablet 0.5 mg PO DAILY 0RF Referrals: Andre Aguillon [Physician] - 1 week Interventions: ED Discharge Assessment Last Done: 03/13/22 15:58 Discharge Date/Time: 03/13/22 16:01
== END 2022-03-13 16:01 | disposition home or self-care (01) ==
PROVIDERS: Emergency Provider Emergency Medicine; PCP Family Medicine
DX: T15.02XA Foreign body in cornea, left eye, initial encounter (principal); I10 Essential (primary) hypertension; I48.0 Paroxysmal atrial fibrillation; X58.XXXA Exposure to other specified factors, initial encounter; Y93.9 Activity, unspecified; Y92.9 Unspecified place or not applicable; Y99.9 Unspecified external cause status
CPT/HCPCS: 99281; 99283

== ENCOUNTER 2022-06-23 13:13 | Outpatient (REF) | payer OTHER, SELFPAY ==
[2022-06-23 13:24] LABS: MANUAL DIFF FLAG NO
[2022-06-23 13:56] LABS: Basophils Percent Auto 0.4 % (0-2); Eosinophils Absolute Auto 0.1 X10*3/uL (0.0-0.4); Eosinophils Percent Auto 0.7 % (0-4); Hematocrit 44.6 % (42.0-52.0); Hemoglobin 14.6 g/dl (14.0-18.0); Imm Gran Abs Auto 0.03 X10*3/uL (0.00-0.03); Imm Gran Pct Auto 0.4 % (0.0-0.4); Lymphocytes Absolute Auto 1.4 X10*3/uL (1.2-4.9); Lymphocytes Percent Auto 19.2 % (20-40); Mean Corpuscular HGB Conc 32.7 g/dl (31.0-36.0); Mean Corpuscular Volume 85.6 fL (80.0-98.0); Mean Platelet Volume 11.1 fL (9.4-12.4); Monocytes Absolute Auto 0.4 X10*3/uL (0.1-1.2); Monocytes Percent Auto 5.4 % (2-11); Neutrophils Absolute Auto 5.4 x10*3/uL (2.0-8.3); Neutrophils Percent Auto 73.9 % (45-73); Platelet Count 263 X10*3/uL (160-400); Red Blood Count 5.21 X10*6/uL (4.60-5.80); Red Cell Distribution Width 12.6 % (11.0-16.0); White Blood Count 7.4 X10*3/uL (4.8-10.8)
[2022-06-23 14:14] LABS: Alanine Aminotransferase 11 U/L (0-40); Albumin Level 4.3 g/dL (3.5-5.0); Alkaline Phosphatase 78 U/L (39-117); Anion Gap 12 (12-20); Aspartate Amino Transferase 12 U/L (5-37); Bilirubin Total 0.6 mg/dL (0.0-1.0); Blood Urea Nitrogen 12 mg/dL (9-16); Calcium 9.4 mg/dL (8.4-10.2); Carbon Dioxide 29 mmol/L (22-29); Chloride 104 mmol/L (96-108); Estimated Glomerular Filt Rate > 60; Glucose Random 93 mg/dL (60-115); Potassium 4.4 mmol/L (3.3-5.1); Sodium 141 mmol/L (135-145); Total Protein 7.1 g/dL (6.5-8.0)
[2022-06-23 14:50] LABS: Erythrocyte Sedimentation Rate 3 MM/HR (0-15)
== END 2022-06-23 13:14 | disposition home or self-care (01) ==
LOC: HO.LAB 13:13
PROVIDERS: PCP Family Medicine; Visit Provider Physician Assistant
DX: R10.9 Unspecified abdominal pain (principal); K52.9 Noninfective gastroenteritis and colitis, unspecified; R11.2 Nausea with vomiting, unspecified; R79.82 Elevated C-reactive protein (CRP)
CPT/HCPCS: 36415; 80053; 85025; 85652; 86140; 99212

== ENCOUNTER 2022-08-12 07:51 | Outpatient (REF) | payer OTHER, SELFPAY ==
--- NOTE | ~2022-08-12 | US_ITS ---
EXAMINATION: US ABDOMEN COMPLETE CLINICAL INFORMATION: Unspecified abdominal pain. COMPARISON: Ultrasound abdomen complete 10/01/2020. CT enterography abdomen and pelvis with contrast 09/30/2020. CT abdomen and pelvis 01/12/2019. X-ray abdomen 09/10/2012. TECHNIQUE: Real-time imaging of the abdominal viscera. FINDINGS: PANCREAS: Visualized body and the head of the pancreas is homogeneous in echotexture. The tail is obscured by overlying gas. ABDOMINAL AORTA: The proximal, mid, and distal segments are normal in caliber. INFERIOR VENA CAVA: Visualized portions are normal. LIVER: Normal. The liver is normal in size. The liver contour is normal. Parenchymal echogenicity is normal. No focal hepatic lesion. There is no intrahepatic biliary duct dilatation seen. GALLBLADDER: Normal. The gallbladder is physiologically distended without evidence of stones, sludge, polyps, wall thickening or pericholecystic fluid. COMMON BILE DUCT: Normal in caliber measuring 0.3 cm in diameter. RIGHT KIDNEY: Normal. No hydronephrosis. No renal calculi or focal parenchymal lesions. The kidney measures 12.6 cm in maximum dimension. LEFT KIDNEY: Normal. No hydronephrosis. No renal calculi or focal parenchymal lesions. The kidney measures 13.2 cm in maximum dimension. SPLEEN: Normal. The spleen measures 12.2 cm in maximum dimension. FREE FLUID: None. US/US abdomen complete IMPRESSION: Unremarkable complete abdominal ultrasound.
== END 2022-08-12 07:52 | disposition home or self-care (01) ==
LOC: HO.US 07:51
PROVIDERS: Visit Provider Physician Assistant
DX: R10.9 Unspecified abdominal pain (principal)
CPT/HCPCS: 76700

== ENCOUNTER 2022-08-23 13:50 | Outpatient (REF) | payer OTHER, SELFPAY ==
--- NOTE | ~2022-08-23 | CT_ITS ---
EXAMINATION: CT ENTEROGRAPHY ABDOMEN AND PELVIS WITH CONTRAST CLINICAL INFORMATION: Iron deficiency COMPARISON: Ultrasound 08/12/2022, CT 09/30/2020 TECHNIQUE: Study performed with oral VoLumen (1350 mL) and 480 mL of water to distend the abdomen. The patient was injected with 85 mL Omnipaque 350 intravenous contrast which was administered without adverse effect. Coronal and sagittal reformatted images were obtained at the technologist's workstation. This CT examination was performed using dose optimization techniques as appropriate, variously including the following: *Automated exposure control *Adjustment of mA and/or kV according to patient size (this includes techniques or standardized protocols for targeted exams where dose is matched to indication/reason for exam; i.e. extremities or head) *Use of iterative reconstruction technique DLP: 835 mGy-cm FINDINGS: GASTROINTESTINAL FINDINGS: Stomach: Well-distended and normal in appearance. Small intestine: Satisfactorily distended and normal in appearance. Large intestine: Well-distended and normal in appearance. No perirectal changes demonstrated. The appendix is normal. Additional findings: No abnormal enhancement of the vasa recta or significant mesenteric or retroperitoneal lymphadenopathy is seen. No abdominal abscess or fistulous tract demonstrated. ABDOMINAL AND PELVIC CT FINDINGS: Liver, gallbladder, biliary tract: Normal. Pancreas: Normal. Spleen: Spleen borderline enlarged, 13.6 cm craniocaudal. Adrenal glands and kidneys: 1.6 cm homogeneous right adrenal lesion. This had noncontrast density less than 10 Hounsfield units on the prior CT scan 03/28/2017 consistent with a lipid rich adrenal adenoma for which no imaging follow-up is recommended. It has slowly increased in size, measuring 1.2 cm in diameter 03/28/2017, also consistent with a benign process. Normal left adrenal gland. Symmetric enhancement of the bilateral kidneys with no calculi or hydronephrosis. Ureters and bladder: Normal. Lymphovascular structures: Normal caliber aorta. No lymphadenopathy. Bones: Degenerative disc disease at L5-S1. Degenerative changes of the bilateral hips and sacroiliac joints. Lung bases: Lung bases are clear. CT/CT enterography IMPRESSION: No acute CT findings.
[2022-08-23] MEDS: iohexoL 350 MG/ML 100 ML INFUS..BTL IV (15:52)
== END 2022-08-23 13:51 | disposition home or self-care (01) ==
LOC: HO.US 13:50
PROVIDERS: Visit Provider Physician Assistant
DX: D50.9 Iron deficiency anemia, unspecified (principal)
CPT/HCPCS: 74177; Q9967

== ENCOUNTER 2022-09-16 10:46 | Outpatient (REF) | payer OTHER, SELFPAY ==
[2022-09-16 12:39] LABS: Anion Gap 11 (12-20); Blood Urea Nitrogen 13 mg/dL (9-16); Calcium 9.6 mg/dL (8.4-10.2); Carbon Dioxide 28 mmol/L (22-29); Chloride 106 mmol/L (96-108); Estimated Glomerular Filt Rate > 60; Glucose Random 79 mg/dL (60-115); Potassium 4.6 mmol/L (3.3-5.1); Sodium 140 mmol/L (135-145)
== END 2022-09-16 10:47 | disposition home or self-care (01) ==
LOC: HO.LAB 10:46
PROVIDERS: PCP Family Medicine; Visit Provider Physician Assistant
DX: I48.0 Paroxysmal atrial fibrillation (principal)
CPT/HCPCS: 36415; 80048

== ENCOUNTER 2023-05-02 11:14 | Emergency (ER) | payer OTHER, SELFPAY ==
[2023-05-02 11:18] VITALS: BP 143/96; PULSE 83; RESP 18; TEMP 36.7; O2SAT 99; BMI 41.8
--- NOTE | 2023-05-02 11:26 | ED.CHESTPAIN ---
HPI - Chest Pain General Chief Complaint: Chest Pain Stated Complaint: Chest tightness/Diff breathing/Back pain Time Seen by Provider: 05/02/23 14:24 History of Present Illness HPI narrative: Patient is a 38-year-old male presenting today with having chest tightness. The pain is radiating from the left shoulder to the front. Positive history of hypertension. No history of diabetes, high cholesterol, mi. Patient is from home. No cardiac workup in the past. No history of leg swelling. No history of travel. No history of blood clots. No history of cancer. The pain is made worse with movement of the left shoulder. Movement of the right shoulder causes no pain. No diaphoresis. No stress test. Related Data Home Medications Medication Instructions Recorded Confirmed clonazepam 0.5 mg tablet 0.5 mg PO DAILY 11/18/20 06/23/22 lisinopril 10 mg tablet 10 mg PO DAILY 06/23/22 06/23/22 metoprolol succinate 50 mg 100 mg PO DAILY 06/23/22 06/23/22 tablet,extended release 24 hr Previous Rx's Medication Instructions Recorded cyclobenzaprine 10 mg tablet 10 mg PO Q8H Muscle spasm #10 tabs 06/13/21 dicyclomine 10 mg capsule 10 mg PO TID #90 caps 06/23/22 ondansetron 4 mg disintegrating 4 mg PO DAILY #20 tabs 06/23/22 tablet Allergies Allergy/AdvReac Type Severity Reaction Status Date / Time Penicillins Allergy Intermediate RASH Verified 06/23/22 12:20 Review of Systems Review of Systems: No fever no chills no diaphoresis. No cough and no congestion or respiratory symptoms. Yes all other systems are reviewed and are negative [facility] Past Medical History Attestation statement: The following information was validated with the patient. Medical History Abdominal pain Anxiety History of palpitations HTN (hypertension) Paroxysmal atrial fibrillation Sleep apnea SVT (supraventricular tachycardia) Surgical History H/O cardiac radiofrequency ablation History of adjustable gastric banding History of colonoscopy History of removal of laparoscopic gastric banding device Hx of endoscopy Family History Family History Father Alive and well Mother Family history of high blood pressure Social History Social History Household Members: Spouse and Children Alcohol intake: never Advance Directives: No Advance Directives Information Provided: No Current occupational status: unemployed Physical Exam Vital Signs: Vital Signs: Last Vital Signs Temp 98.0 F 05/02/23 11:18 Pulse 83 05/02/23 11:18 Resp 18 05/02/23 11:18 BP 143/96 H 05/02/23 11:18 Pulse Ox 99 05/02/23 11:18 O2 Del Method Room Air 05/02/23 11:18 BMI result Body Mass Index 41.8 Appearance: Alert. Oriented X3. No acute distress. Eyes: Pupils equal, round and reactive to light. ENT: Pharynx normal. Neck: Normal inspection. Neck supple. No lymph nodes noted. No crepitus CVS: Normal heart rate and rhythm. Pulses normal. Normal S1 and S2 Respiratory: No respiratory distress. Breath sounds normal. No Wheezing. No rales Abdomen: Soft and nontender. No rigidity. No distention. good BS x4 Skin: Skin warm and dry. Normal skin color. Normal skin turgor. Extremities: No lower extremity edema. Neurovascular intact to all extremities. No Lacerations. No Rash Neuro: Oriented X 3. No motor deficit. No sensory deficit. Moving all extermities. No slurred speech Course Course Course Narrative: RME; 38 yold male presents to the ED for chest pain that began twenty ago while doing work on his tire. labs, EKG, and chest xray orderred. Medical Decision Making Medical Decision Making [facility] Narrative: Patient's chest pain atypical. Has pain worse with movement of the left shoulder. No pain on movement of the right shoulder. Is 38 years old he does have a history of hypertension. But no other cardiac risk factors. Patient's EKG was normal. Cardiac enzymes x2 sets were negative. Heart score is less than 3. Patient's chest x-ray showed no evidence of pneumonia no pneumothorax. Will discharge patient home close follow-up on an outpatient basis. Differential Diagnosis Differential Diagnoses: The differential diagnosis associated with the presentation includes ACS, pneumonia, pneumothorax, dissection, aneurysm Lab Data [facility] Lab Attestation statement: I reviewed the patient's lab results. 05/02/23 11:49 05/02/23 11:49 Labs: Lab Results 05/02/23 05/02/23 05/02/23 Range/Units 11:48 11:48 11:49 WBC 6.9 (4.8-10.8) X10*3/uL RBC 5.46 (4.60-5.80) X10*6/uL Hgb 15.3 (14.0-18.0) g/dl Hct 45.9 (42.0-52.0) % MCV 84.1 (80.0-98.0) fL MCH 28.0 (27.0-33.0) pg MCHC 33.3 (31.0-36.0) g/dl RDW 12.7 (11.0-16.0) % Plt Count 246 (160-400) X10*3/uL MPV 11.1 (9.4-12.4) fL Immature Gran % (Auto) 0.4 (0.0-0.4) % Neut % (Auto) 75.0 H (45-73) % Lymph % (Auto) 18.9 L (20-40) % [place] % (Auto) 4.5 (2-11) % Eos % (Auto) 0.6 (0-4) % Baso % (Auto) 0.6 (0-2) % Lymph # (Auto) 1.3 (1.2-4.9) X10*3/uL [place] # (Auto) 0.3 (0.1-1.2) X10*3/uL Eos # (Auto) 0.0 (0.0-0.4) X10*3/uL Baso # (Auto) 0.0 (0.0-0.2) X10*3/uL Abs Immat Gran (auto) 0.03 (0.00-0.03) X10*3/uL Absolute Neuts (auto) 5.2 (2.0-8.3) x10*3/uL Absolute Nucleated RBC 0.000 (0.0-0.012) X10*3/uL Nucleated RBC % (auto) 0.0 (0.0-0.2) /100WBC PT (10.0-13.1) SEC INR (0.9-1.1) APTT (26.0-36.4) SEC Sodium (135-145) mmol/L Potassium (3.3-5.1) mmol/L Chloride (96-108) mmol/L Carbon Dioxide (22-29) mmol/L Anion Gap (12-20) BUN (9-16) mg/dL Creatinine (0.5-1.4) mg/dL Estim Creat Clear Calc Estimated GFR Random Glucose (60-115) mg/dL Calcium (8.4-10.2) mg/dL Total Bilirubin (0.0-1.0) mg/dL AST (5-37) U/L ALT (0-40) U/L Alkaline Phosphatase (39-117) U/L Troponin I High Sens (<3.5-35.0) ng/L B-Natriuretic Peptide (<100) pg/mL Total Protein (6.5-8.0) g/dL Albumin (3.5-5.0) g/dL COVID-19 (KARTHIK) Negative (Negative) COVID-19 Clin Com See Note Influenza Type A (ELIZABETH) Negative (Negative) Influenza Type B (ELIZBAETH) Negative (Negative) Influenza A & B Note See Note 05/02/23 05/02/23 05/02/23 Range/Units 11:49 11:49 11:49 WBC (4.8-10.8) X10*3/uL RBC (4.60-5.80) X10*6/uL Hgb (14.0-18.0) g/dl Hct (42.0-52.0) % MCV (80.0-98.0) fL MCH (27.0-33.0) pg MCHC (31.0-36.0) g/dl RDW (11.0-16.0) % Plt Count (160-400) X10*3/uL MPV (9.4-12.4) fL Immature Gran % (Auto) (0.0-0.4) % Neut % (Auto) (45-73) % Lymph % (Auto) (20-40) % [place] % (Auto) (2-11) % Eos % (Auto) (0-4) % Baso % (Auto) (0-2) % Lymph # (Auto) (1.2-4.9) X10*3/uL [place] # (Auto) (0.1-1.2) X10*3/uL Eos # (Auto) (0.0-0.4) X10*3/uL Baso # (Auto) (0.0-0.2) X10*3/uL Abs Immat Gran (auto) (0.00-0.03) X10*3/uL Absolute Neuts (auto) (2.0-8.3) x10*3/uL Absolute Nucleated RBC (0.0-0.012) X10*3/uL Nucleated RBC % (auto) (0.0-0.2) /100WBC PT 13.0 (10.0-13.1) SEC INR 1.1 (0.9-1.1) APTT 31.1 (26.0-36.4) SEC Sodium 138 (135-145) mmol/L Potassium 3.7 (3.3-5.1) mmol/L Chloride 108 (96-108) mmol/L Carbon Dioxide 22 (22-29) mmol/L Anion Gap 12 (12-20) BUN 13 (9-16) mg/dL Creatinine 0.83 (0.5-1.4) mg/dL Estim Creat Clear Calc 168.3 Estimated GFR > 60 Random Glucose 109 (60-115) mg/dL Calcium 9.1 (8.4-10.2) mg/dL Total Bilirubin 1.0 (0.0-1.0) mg/dL AST 11 (5-37) U/L ALT 9 (0-40) U/L Alkaline Phosphatase 76 (39-117) U/L Troponin I High Sens < 2.7 (<3.5-35.0) ng/L B-Natriuretic Peptide (<100) pg/mL Total Protein 7.0 (6.5-8.0) g/dL Albumin 3.9 (3.5-5.0) g/dL COVID-19 (KARTHIK) (Negative) COVID-19 Clin Com Influenza Type A (ELIZABETH) (Negative) Influenza Type B (ELIZABETH) (Negative) Influenza A & B Note 05/02/23 05/02/23 Range/Units 11:49 15:14 WBC (4.8-10.8) X10*3/uL RBC (4.60-5.80) X10*6/uL Hgb (14.0-18.0) g/dl Hct (42.0-52.0) % MCV (80.0-98.0) fL MCH (27.0-33.0) pg MCHC (31.0-36.0) g/dl RDW (11.0-16.0) % Plt Count (160-400) X10*3/uL MPV (9.4-12.4) fL Immature Gran % (Auto) (0.0-0.4) % Neut % (Auto) (45-73) % Lymph % (Auto) (20-40) % [place] % (Auto) (2-11) % Eos % (Auto) (0-4) % Baso % (Auto) (0-2) % Lymph # (Auto) (1.2-4.9) X10*3/uL [place] # (Auto) (0.1-1.2) X10*3/uL Eos # (Auto) (0.0-0.4) X10*3/uL Baso # (Auto) (0.0-0.2) X10*3/uL Abs Immat Gran (auto) (0.00-0.03) X10*3/uL Absolute Neuts (auto) (2.0-8.3) x10*3/uL Absolute Nucleated RBC (0.0-0.012) X10*3/uL Nucleated RBC % (auto) (0.0-0.2) /100WBC PT (10.0-13.1) SEC INR (0.9-1.1) APTT (26.0-36.4) SEC Sodium (135-145) mmol/L Potassium (3.3-5.1) mmol/L Chloride (96-108) mmol/L Carbon Dioxide (22-29) mmol/L Anion Gap (12-20) BUN (9-16) mg/dL Creatinine (0.5-1.4) mg/dL Estim Creat Clear Calc Estimated GFR Random Glucose (60-115) mg/dL Calcium (8.4-10.2) mg/dL Total Bilirubin (0.0-1.0) mg/dL AST (5-37) U/L ALT (0-40) U/L Alkaline Phosphatase (39-117) U/L Troponin I High Sens < 2.7 (<3.5-35.0) ng/L B-Natriuretic Peptide 13 (<100) pg/mL Total Protein (6.5-8.0) g/dL Albumin (3.5-5.0) g/dL COVID-19 (KARTHIK) (Negative) COVID-19 Clin Com Influenza Type A (ELIZABETH) (Negative) Influenza Type B (ELIZABETH) (Negative) Influenza A & B Note Independent Interpretation I performed an independent interpretation of an: EKG Interpretation: Sinus heart rate is 80 RI QRS QT within normal limits is no acute ST segment elevation noted. Chronic Conditions Patient?s care impacted by: Hypertension Discharge Plan Discharge Clinical Impression: Chest pain Patient Disposition: Home, Self-Care Instructions: Chest Pain (DC) Prescriptions: No Action cyclobenzaprine 10 mg tablet 10 mg PO Q8H Qty: 10 0RF metoprolol succinate 50 mg tablet extended release 24 hr 100 mg PO DAILY clonazepam 0.5 mg tablet 0.5 mg PO DAILY lisinopril 10 mg tablet 10 mg PO DAILY dicyclomine 10 mg capsule 10 mg PO TID Qty: 90 0RF ondansetron 4 mg tablet,disintegrating 4 mg PO DAILY Qty: 20 0RF Interventions: ED Discharge Assessment Last Done: 05/02/23 16:30 Discharge Date/Time: 05/02/23 16:35
== END 2023-05-02 16:35 | disposition home or self-care (01) ==
PROVIDERS: Emergency Provider Emergency Medicine Emergency Medical Services; PCP Family Medicine
DX: R07.9 Chest pain, unspecified (principal); Z20.822 Contact with and (suspected) exposure to COVID-19; I10 Essential (primary) hypertension; I48.0 Paroxysmal atrial fibrillation
CPT/HCPCS: 36415; 71046; 80053; 83880; 84484; 85025; 85610; 85730; 87502; 87635; 93005; 99283; 99284

== ENCOUNTER 2023-12-08 11:41 | Outpatient (REF) | payer OTHER, SELFPAY ==
[2023-12-08 16:06] LABS: Appearance Urine Turbid; Color Urine Yellow; Glucose Urine UA Negative (Negative); Leukocyte Esterase Urine Negative (Negative); Nitrite Urine Negative (Negative); PH 5.5 (5.0-9.0); Specific Gravity - Urine 1.025 (1.005-1.025); Urine Blood Negative (Negative); Urine Ketones Negative (Negative); Urine Protein Negative (Neg-Trace)
[2023-12-08 16:08] LABS: Bacteria Urine None Seen (None Seen); Hyaline Casts Urine 0-2 /LPF (0-2); RBC Urine 0-2 /HPF (0-2); Squamous Epithelial Cell Urine 0-2 /HPF (0-2); WBC Urine 0-5 /HPF (0-5)
[2023-12-08 18:17] LABS: CT PCR NOT DETECTED (Not Detect.); NG PCR NOT DETECTED (Not Detect.)
[2023-12-09 08:25] LABS: HIV AB/AG Nonreactive (Nonreactive); HIV Num 1 0.06 S/CO (0.00-0.99); ~Hepatitis C Antibody Nonreactive (Nonreactive)
[2023-12-09 18:28] LABS: RPR Rapid Plasma Reagin NON-REACTIVE (NON-REACTIVE)
== END 2023-12-08 11:42 | disposition home or self-care (01) ==
LOC: HO.HHCL 11:41
PROVIDERS: Visit Provider Nurse Practitioner Primary Care
DX: R30.0 Dysuria (principal); Z20.2 Contact with and (suspected) exposure to infections with a predominantly sexual mode of transmission
CPT/HCPCS: 0353U; 36415; 81001; 86592; 86803; 87389

== ENCOUNTER 2024-02-24 11:12 | Outpatient (AMB) | payer OTHER, SELFPAY ==
--- NOTE | 2024-02-24 11:16 | MHC.OFFVIS ---
Intake Visit Reasons: Vasectomy consult Intake Note: New Patient presents for initial visit for Vasectomy consult and right testicular mass Urology Medications: none Blood Thinner: none Children# 4 Expecting Children# 0 Business Process Associate Required: No Accompanied by: Self / Same As Patient Allergies Penicillins Allergy (Intermediate, Verified 02/24/24 11:57) RASH Medication List - Last Reconciled 02/24/24 by MAURO ConnorP- clonazepam 0.5 mg PO DAILY meloxicam 15 mg PO DAILY 14 days metoprolol succinate ER 100 mg PO DAILY HPI Comments Details: Quique is a 38-year-old male patient of Dr. Ruiz. He has a past medical history of paroxysmal atrial fibrillation, sleep apnea, anxiety, hypertension, and SVT. He presents to the office today as a new patient for a vasectomy evaluation, right-sided scrotal pain, and nocturia. In discussion with the patient today he reports ongoing right-sided scrotal pain has been present for few years now. He denies any previous trauma to this area. He reports pain is infrequent and varies. He also discusses experiencing nocturia up to 5 times per night. In review of patient's chart it appears he has a past medical history of sleep apnea however in discussion with the patient today he reports since his weight loss he has not needed to wear his sleep apnea machine however is unable to remember which doctor he had seen that told him this. Discussed nocturia in relation to sleep apnea. Dr. Garcia in to assess patient as he declines female provider. Right sided epididymal head tenderness noted per Dr. Harrison assessment. Also, right sided groin pain noted. Discussed physical therapy. He otherwise denies urinary urgency, urinary frequency, incontinence, hematuria, dysuria, foul smelling urine, changes to urinary stream, flank pain, fever, and or chills. Vasectomy evaluation The patient presents for vasectomy consultation.? He is currently . He has fathered -?2 children, with two partners The youngest child is - 6 years old? His is currently with no partner Current form of control is patient is not sexually active at this time. Current employment is none; was previously a lawn mower mechanic. The vasectomy may be complicated due to a history of no complicating issues. Patient education has been provided via AUA video, via printed information, risks of failure, recovery time, bruising and potential pain syndrome have been stressed Discussion today focused on the presence of vasectomy and the risks, benefits and alternatives that are available. Vasectomy as intended as a permanent form of control. Printed information and literature was provided to the patient. Overall there is a one in 2500 failure rate. This can occur at any time after vasectomy. Risks were discussed highlighting hematoma, spermatocele, epididymal congestion, development of sperm antibodies, and development of chronic pain estimated between 1-5%. The procedure was reviewed in detail. Anatomical diagrams of the male genitalia were used to explain the location of the vas deferens. The vas deferens will be transected, the proximal end will be cauterized, a metal clip would be applied to separate the 2 vas deferens ends. It was explained the procedure will be done in the office and takes approximately 10-15 minutes. Less common problems that arise with vasectomy include hematoma, bleeding, allergic reaction to anesthetic, epididymal infection, epididymal congestion, scrotal discomfort, spermatic leak, spermatic granuloma and the possibility of antisperm antibodies. He understands these risks and wishes to proceed. Consent was signed at the office today. He also understands that it takes 12 weeks for sperm to fully clear the system. He will need to provide a semen sample at 12 weeks and if this is not clear a 2nd sample at 16 weeks. Medical clearance to stop using protection will only be provided if he satisfies published criteria for sperm clearance. [facility] Medical History History of palpitations Paroxysmal atrial fibrillation Sleep apnea Anxiety HTN (hypertension) SVT (supraventricular tachycardia) Abdominal pain Surgical History H/O cardiac radiofrequency ablation History of removal of laparoscopic gastric banding device History of adjustable gastric banding Hx of endoscopy History of colonoscopy Family History Father Alive and well Mother Family history of high blood pressure Social History Household Members: Spouse and Children Alcohol intake: never Current occupational status: unemployed Review of Systems Const Reports no additional complaints Eyes Reports no additional complaints ENT Reports no additional complaints Card Reports as per HPI Resp Reports no additional complaints GI Reports no additional complaints Reports as per HPI Musc Reports no additional complaints Neuro Reports no additional complaints Psych Reports no additional complaints Endo Reports no additional complaints Nando/Lymph Reports no additional complaints Aller/Immun Reports no additional complaints Physical Exam Const General: cooperative, healthy appearing, comfortable, no acute distress, well developed, alert and awake Orientation/consciousness: patient oriented x3 Limitations: no limitations HEENT Head: Yes normal to inspection, Yes normocephalic and Yes atraumatic Ears: hearing grossly normal bilaterally Eyes General: appearance normal, both eyes and all related structures Neck Neck: Yes normal visual inspection and Yes trachea midline Chest Chest palpation & inspection: normal inspection of the chest Resp Effort & Inspection: normal respiratory effort and able to speak in complete sentences Cardio Rate: regular rate GI Inspection: Yes normal to inspection Other: as per HPI General: Yes no CVA tenderness Male General Exam: Yes normal external exam Penis: normal penis and uncircumcised Meatus: meatus normal Scrotum: scrotum normal Testes: epididymal tenderness on the right Back/Spine/Pelvis Back: no CVA tenderness Skin General skin exam: no rashes or lesions noted Neuro General: patient oriented x3 Extrem General: Yes normal to inspection Psych Appearance: grossly normal and well kempt Mental Status: mental status grossly normal Speech and movement: Normal speech and movement present and Clear speech present Affect: normal affect Attitude: cooperative Thought process: Normal thought process present Thought content: Normal thought content present Insight: Fair insight present (Psych) Judgement: Fair judgement present (Psych) Results AMB Urinalysis, Automated UA Leukoctes 0 Thelma/uL Last Edit by Flit on 02/24/24 11:50 UA Nitrite Negative Last Edit by Flit on 02/24/24 11:50 UA Urobilinogen 0.2 mg/dL Last Edit by Flit on 02/24/24 11:50 UA Protein 0 mg/dL Last Edit by Flit on 02/24/24 11:50 UA pH 5.5 Last Edit by Flit on 02/24/24 11:50 UA Blood 0 Royal/uL Last Edit by Flit on 02/24/24 11:50 UA Specific [place] 1.025 Last Edit by Flit on 02/24/24 11:50 UA Ketone Negative Last Edit by Flit on 02/24/24 11:50 UA Bilirubin 0 mg/dL Last Edit by Raina Malone on 02/24/24 11:50 UA Glucose 0 mg/dL Last Edit by Raina Malone on 02/24/24 11:50 Results Reviewed Results Reviewed: Laboratory Last Values Urine pH (Auto) 5.5 02/24/24 11:42 Specific [place] (Auto) 1.025 02/24/24 11:42 Urine Protein (Auto) 0 mg/dL 02/24/24 11:42 Glucose (UA)(Auto) 0 mg/dL 02/24/24 11:42 Urine Ketones (Auto) Negative 02/24/24 11:42 Urine Blood (Auto) 0 Royal/uL 02/24/24 11:42 Urine Nitrite (Auto) Negative 02/24/24 11:42 Urine Bilirubin (Auto) 0 mg/dL 02/24/24 11:42 Urine Urobilinogen (Auto) 0.2 mg/dL 02/24/24 11:42 Leukocyte Esterase (Auto) 0 Thelma/uL 02/24/24 11:42 Assessment & Plan Assessment & Plan (1) Nocturia: Code(s): R35.1 - Nocturia Category: Medical (2) Fatigue: Code(s): R53.83 - Other fatigue Category: Medical (3) Anxiety about health: Code(s): R45.89 - Other symptoms and signs involving emotional state Category: Medical (4) Vasectomy evaluation: Code(s): Z30.09 - Encounter for other general counseling and advice on contraception Category: Medical Plan In office urinalysis results reviewed with the patient today; as noted above. Will obtain sleep study for further assessment evaluation. Discussed at length risks and benefits of vasectomy. All questions were answered. Start Mobic as discussed and prescribed. P.R.N. medications for vasectomy provided; discussed specific instructions of bringing them to office day of procedure. Consent obtained Discussed, educated, and stressed the importance of limiting fluids prior to bed to decrease episodes of nocturia. Discussed referral to physical therapy however patient declines at this time. Stretching exercises reviewed and discussed. Will schedule for in office vasectomy with Dr. Garcia Follow up with me after to review sleep study and further assess other urological issues/concerns. Orders: Orders RT home sleep study Today R06.83 - Snoring, R35.1 - Nocturia, R53.83 - Other fatigue AMB Urinalysis Automated Today Z13.9 - Encounter for screening, unspecified Medications: New meloxicam 15 mg PO DAILY 14 days 14 tabs 0RF R10.31 - Right lower quadrant pain, R10.32 - Left lower quadrant pain diazepam Take medication after arrival at office 2 mg PO BID 1 day PRN 2 tabs 0RF anxiety R45.89 - Other symptoms and signs involving emotional state acetaminophen-codeine 300-30 mg 1 tab PO Q8H 3 days 9 tabs 0RF R45.89 - Other symptoms and signs involving emotional state Patient Instructions: The patient had an opportunity to ask questions regarding the treatment plan. All questions were answered. Physical exam, labs, and imaging were discussed and reviewed in detail. As well as risks, benefits, and discussion of treatment choices. No major barriers to understanding were identified. The patient expressed understanding and agreement with the above treatment plan. The patient was made aware they should contact our office by phone for worsening of their current condition, the appearance of new symptoms, or with any questions or concerns. Compliance is encouraged with any medications and follow up testing that is ordered. It is a privilege to be allowed the opportunity to participate in? your urological care.? Again, if you have any questions or concerns If you have any questions or concerns please do not hesitate to contact me. The office is [phone]. This note is constructed using voice recognition software. While every effort has been made to ensure accuracy puller machine errors may have been included. Yours sincerely, NATANAEL Connor Coding Level of Care Code New Pt Level 4 (07097) Diagnoses Nocturia R35.1 Fatigue R53.83 Anxiety about health R45.89 Vasectomy evaluation Z30.09
== END 2024-02-24 11:59 | disposition home or self-care (01) ==
PROVIDERS: PCP Family Medicine; Visit Provider Nurse Practitioner Family
DX: R35.1 Nocturia (principal); R53.83 Other fatigue; R45.89 Other symptoms and signs involving emotional state; Z30.09 Encounter for other general counseling and advice on contraception; Z13.9 Encounter for screening, unspecified
CPT/HCPCS: 99204

== ENCOUNTER → 2024-02-24 11:12 | Outpatient (BNVA) | payer OTHER, SELFPAY | PROVIDERS: PCP Family Medicine; Visit Provider Nurse Practitioner Family | DX: Z30.09 Encounter for other general counseling and advice on contraception (principal); F41.8 Other specified anxiety disorders; R35.1 Nocturia; R53.83 Other fatigue | CPT/HCPCS: 81003; 99202 ==

== ENCOUNTER 2024-04-15 01:25 | Emergency (ER) | payer OTHER, SELFPAY ==
[2024-04-15] VITALS (9 sets, daily range): BP systolic 97–128; BP diastolic 38–79; PULSE 66–102; RESP 17–20; TEMP 36.6; O2SAT 98–100; BMI 32.2
--- NOTE | 2024-04-15 | ECG_ITS ---
Test Reason : [id number]-BROWT Blood Pressure : / mmHG Vent. Rate : 071 BPM Atrial Rate : 000 BPM P-R Int : 000 ms QRS Dur : 090 ms QT Int : 350 ms P-R-T Axes : 000 016 008 degrees QTc Int : 380 ms Atrial fibrillation Abnormal ECG When compared with ECG of 02-MAY-2023 11:14, Atrial fibrillation has replaced Sinus rhythm Referred By: Generic ED Physician Electronically Signed By:NNAMDI RUBY
--- NOTE | ~2024-04-15 | CT_ITS ---
EXAMINATION: CT HEAD WITHOUT CONTRAST CLINICAL INFORMATION: Fall. Pain. COMPARISON: 05/30/2012. TECHNIQUE: Contiguous axial imaging was performed from the skull base to vertex without intravenous administration of contrast. This CT examination was performed using dose optimization techniques as appropriate, variously including the following: *Automated exposure control *Adjustment of mA and/or kV according to patient size (this includes techniques or standardized protocols for targeted exams where dose is matched to indication/reason for exam; i.e. extremities or head) *Use of iterative reconstruction technique DLP: 900 mGy-cm FINDINGS: The lateral, third and fourth ventricles are normally outlined. The cortical sulci and basal cisterns are normally outlined as well. There is no acute territorial defect, hemorrhage or midline shift. The extra-axial spaces are unremarkable. Calvarium/scalp: Intact. Maxillofacial sinuses and mastoids: Clear as visualized. CT/CT head/brain wo IV con IMPRESSION: No acute intracranial pathology.
--- NOTE | 2024-04-15 01:30 | ED.FALL ---
HPI - Fall General Chief Complaint: Fall Stated Complaint: SYNCOPE, FALL, LACERATION ON FOREHEAD Time Seen by Provider: 04/15/24 01:30 Source: patient Mode of arrival: EMS Limitations: no limitations History of Present Illness ED Provider: michael PANIAGUA Narrative: Patient's history of lone atrial fibrillation had palpitation episode last year was doing good today earlier noticed heart is beating fast took extra tablet of metoprolol 25 mg fell lightheaded while going down steps and fell about 5 or 6 steps with superficial abrasion on the forehead no chest pain no seizures patient does have history of atrial fibrillation for last 15 years had cardiac ablation in the past asymptomatic mostly had echocardiogram 2 years ago which was normal followed by timber skidder at [facility] patient had last episode of AFib about 5 years ago Related Data Home Medications ?Medication ?Instructions ?Recorded ?Confirmed clonazepam 0.5 mg tablet 0.5 mg PO DAILY 11/18/20 06/23/22 metoprolol succinate 50 mg 100 mg PO DAILY 06/23/22 06/23/22 tablet,extended release 24 hr Previous Rx's ?Medication ?Instructions ?Recorded diazepam 2 mg tablet 2 mg PO BID PRN anxiety 1 day #2 02/24/24 tabs meloxicam 15 mg tablet 15 mg PO DAILY 14 days #14 tabs 02/24/24 acetaminophen 300 mg-codeine 30 mg 1 tab PO Q8H 3 days #9 tabs 02/28/24 tablet apixaban 5 mg tablet (Eliquis) 5 mg PO BID #60 tabs 04/15/24 Allergies Allergy/AdvReac Type Severity Reaction Status Date / Time Penicillins Allergy Intermediate RASH Verified 04/15/24 01:42 Review of Systems Review of Systems: Yes all other systems are reviewed and are negative [facility] Past Medical History Medical History History of palpitations Paroxysmal atrial fibrillation Sleep apnea Anxiety HTN (hypertension) SVT (supraventricular tachycardia) Abdominal pain Surgical History H/O cardiac radiofrequency ablation History of removal of laparoscopic gastric banding device History of adjustable gastric banding Hx of endoscopy History of colonoscopy Family History Family History Father Alive and well Mother Family history of high blood pressure Social History Social History Household Members: Spouse and Children Alcohol intake: never Smoked in Last 30 Days: No Use of substances other than those prescribed or required for medical reasons: No Advance Directives: No Advance Directives Information Provided: Yes Do you have a plan to hurt others: No Plan Current occupational status: unemployed Physical Exam Vital Signs: Vital Signs: Last Vital Signs Temp 97.8 F 04/15/24 05:45 Pulse 67 04/15/24 05:45 Resp 18 04/15/24 05:45 BP 107/66 04/15/24 05:45 Pulse Ox 98 04/15/24 05:45 O2 Del Method Room Air 04/15/24 05:45 BMI result Body Mass Index 32.2 Appearance: Alert. Oriented X3. No acute distress. Eyes: PERRLA, No Nystagmus ENT: Pharynx normal. Oral Mucosa moist superficial abrasion forehead Neck: Normal inspection. Neck supple. No midline tenderness CVS: Normal heart rate and rhythm. Pulses normal. Respiratory: No respiratory distress. Equal air entry bilateral, no wheezing/rales/rhonchi Abdomen: Soft and nontender. Bowel sounds are present, no mass palpable, no CVA tenderness Skin: Skin warm and dry. Normal skin color. Normal skin turgor. Extremities: No lower extremity edema. No calf tenderness Neuro: Oriented X 3. No motor deficit. No sensory deficit.No cerebellar signs , cranial nerves II-XII intact Medications Administered Discontinued Medications Generic Name Dose Route Start Last Admin Trade Name Freq PRN Reason Stop Dose Admin Diltiazem HCl 10 mg 04/15/24 05:26 04/15/24 05:40 Diltiazem Hcl 50 Mg/10 Ml Vial IVPUSH 04/15/24 05:27 10 mg STAT STA Administration Flecainide Acetate 200 mg 04/15/24 03:05 04/15/24 03:24 Flecainide Acetate 50 Mg Tablet PO 04/15/24 03:06 200 mg ONCE ONE Administration Flecainide Acetate 100 mg 04/15/24 05:26 04/15/24 05:39 Flecainide Acetate 50 Mg Tablet PO 04/15/24 05:27 100 mg ONCE ONE Administration Sodium Chloride 1,000 mls @ 999 mls/hr 04/15/24 01:36 04/15/24 03:26 Ns IV 04/15/24 02:36 Infused .Q1H1M ONE Infusion Medical Decision Making Medical Decision Making [facility] Narrative: Patient with lone atrial fibrillation on metoprolol comes here with tachycardia with syncope episode patient was given 300 mg of flecainide along with 10 mg of Cardizem patient is still in AFib heart rate in 60s. Case discussed with cardiology Dr. Allan advised to wait for the echo report if no echo results does not want me to cardiovert the patient advised to follow with patient's own timber skidder advised to continue his metoprolol 06:40 patient is still in AFib with heart rate in 60s Differential Diagnosis Differential Diagnoses: The differential diagnosis associated with the presentation includes Lab Data [facility] Lab Attestation statement: I reviewed the patient's lab results. 04/15/24 01:56 04/15/24 01:56 Labs: Lab Results 04/15/24 Range/Units 01:56 WBC 7.6 (4.8-10.8) X10*3/uL RBC 5.34 (4.60-5.80) X10*6/uL Hgb 15.6 (14.0-18.0) g/dl Hct 46.8 (42.0-52.0) % MCV 87.6 (80.0-98.0) fL MCH 29.2 (27.0-33.0) pg MCHC 33.3 (31.0-36.0) g/dl RDW 13.1 (11.0-16.0) % Plt Count 241 (160-400) X10*3/uL MPV 10.6 (9.4-12.4) fL Immature Gran % (Auto) 0.3 (0.0-0.4) % Neut % (Auto) 69.9 (45-73) % Lymph % (Auto) 22.0 (20-40) % Price % (Auto) 6.6 (2-11) % Eos % (Auto) 0.7 (0-4) % Baso % (Auto) 0.5 (0-2) % Lymph # (Auto) 1.7 (1.2-4.9) X10*3/uL Price # (Auto) 0.5 (0.1-1.2) X10*3/uL Eos # (Auto) 0.1 (0.0-0.4) X10*3/uL Baso # (Auto) 0.0 (0.0-0.2) X10*3/uL Abs Immat Gran (auto) 0.02 (0.00-0.03) X10*3/uL Absolute Neuts (auto) 5.3 (2.0-8.3) x10*3/uL Absolute Nucleated RBC 0.000 (0.0-0.012) X10*3/uL Nucleated RBC % (auto) 0.0 (0.0-0.2) /100WBC PT 13.7 H (11.1-13.3) SEC INR 1.1 (0.9-1.1) APTT 24.7 L (26.0-36.8) SEC Sodium 144 (135-145) mmol/L Potassium 3.3 (3.3-5.1) mmol/L Chloride 110 H (96-108) mmol/L Carbon Dioxide 24 (22-29) mmol/L Anion Gap 13 (12-20) BUN 21 H (9-16) mg/dL Creatinine 0.78 (0.5-1.4) mg/dL Estim Creat Clear Calc 155.0 Estimated GFR > 60 Random Glucose 115 (60-115) mg/dL Calcium 8.5 D (8.4-10.2) mg/dL Magnesium 1.9 (1.6-2.6) mg/dL Total Bilirubin 0.5 (0.0-1.0) mg/dL AST 16 (5-37) U/L ALT 10 (0-40) U/L Alkaline Phosphatase 66 (39-117) U/L Troponin I High Sens < 2.7 (<3.5-35.0) ng/L Total Protein 6.2 L (6.5-8.0) g/dL Albumin 3.8 (3.5-5.0) g/dL Independent Interpretation I performed an independent interpretation of an: EKG Interpretation: Atrial fibrillation with ventricular rate of 71 beats per minute normal axis no acute ST T wave changes no acute ischemia Critical Care Time Critical Care Time Critical Care Time: Yes Total Critical Care Time: 55 Attestation: The patient was critically ill with a high probability of imminent or life threatening deterioration. I spent greater than 60???minutes of discontinuous time evaluating the patient,delivering critical care at the bedside, discussing and evaluating pertinent data with consultants. Critical care time does not include time spent performing separately billable procedures or teaching. Total time spent performing critical care was 55???minutes. Discharge Plan Discharge Clinical Impression: Atrial fibrillation with rapid ventricular response Patient Disposition: Still a Patient Instructions: A-fib (Atrial Fibrillation) (ED) Additional Instructions: Continue metoprolol Start taking Eliquis for now till seen by timber skidder Prescriptions: New Eliquis 5 mg tablet 5 mg PO BID Qty: 60 0RF No Action acetaminophen-codeine 300-30 mg tablet 1 tab PO Q8H 3 Days Qty: 9 0RF metoprolol succinate 50 mg tablet extended release 24 hr 100 mg PO DAILY clonazepam 0.5 mg tablet 0.5 mg PO DAILY meloxicam 15 mg tablet 15 mg PO DAILY 14 Days Qty: 14 0RF diazepam 2 mg tablet 2 mg PO BID PRN (Reason: anxiety) 1 Days Qty: 2 0RF Rx Instructions: Take medication after arrival at office Print Language: Nepalese
[2024-04-15] MEDS: 0.9 % Sodium Chloride 1,000 ML 999 ML IV (01:50)
[2024-04-15 02:02] LABS: MANUAL DIFF FLAG NO
[2024-04-15 02:06] LABS: Basophils Percent Auto 0.5 % (0-2); Eosinophils Absolute Auto 0.1 X10*3/uL (0.0-0.4); Eosinophils Percent Auto 0.7 % (0-4); Hematocrit 46.8 % (42.0-52.0); Hemoglobin 15.6 g/dl (14.0-18.0); Imm Gran Abs Auto 0.02 X10*3/uL (0.00-0.03); Imm Gran Pct Auto 0.3 % (0.0-0.4); Lymphocytes Absolute Auto 1.7 X10*3/uL (1.2-4.9); Mean Corpuscular HGB Conc 33.3 g/dl (31.0-36.0); Mean Corpuscular Hemoglobin 29.2 pg (27.0-33.0); Mean Corpuscular Volume 87.6 fL (80.0-98.0); Mean Platelet Volume 10.6 fL (9.4-12.4); Monocytes Absolute Auto 0.5 X10*3/uL (0.1-1.2); Monocytes Percent Auto 6.6 % (2-11); Neutrophils Absolute Auto 5.3 x10*3/uL (2.0-8.3); Neutrophils Percent Auto 69.9 % (45-73); Platelet Count 241 X10*3/uL (160-400); Red Blood Count 5.34 X10*6/uL (4.60-5.80); Red Cell Distribution Width 13.1 % (11.0-16.0); White Blood Count 7.6 X10*3/uL (4.8-10.8)
[2024-04-15 02:13] LABS: INTERNATIONAL NORM RATIO 1.1 (0.9-1.1); Prothrombin Time 13.7 SEC (11.1-13.3)
[2024-04-15 02:16] LABS: Partial Thromboplastin Time 24.7 SEC (26.0-36.8)
[2024-04-15 02:21] LABS: Alanine Aminotransferase 10 U/L (0-40); Albumin Level 3.8 g/dL (3.5-5.0); Alkaline Phosphatase 66 U/L (39-117); Anion Gap 13 (12-20); Aspartate Amino Transferase 16 U/L (5-37); Bilirubin Total 0.5 mg/dL (0.0-1.0); Blood Urea Nitrogen 21 mg/dL (9-16); Calcium 8.5 mg/dL (8.4-10.2); Carbon Dioxide 24 mmol/L (22-29); Chloride 110 mmol/L (96-108); Estimated Glomerular Filt Rate > 60; Glucose Random 115 mg/dL (60-115); Magnesium 1.9 mg/dL (1.6-2.6); Potassium 3.3 mmol/L (3.3-5.1); Sodium 144 mmol/L (135-145); Total Protein 6.2 g/dL (6.5-8.0)
[2024-04-15 02:28] LABS: Troponin-I High Sensitivity < 2.7 ng/L (<3.5-35.0)
[2024-04-15] MEDS: Flecainide Acetate 50 MG TABLET 200 MG PO (03:24)
[2024-04-15] MEDS: Flecainide Acetate 50 MG TABLET 100 MG PO (05:39)
[2024-04-15] MEDS: dilTIAZem HCL 50 MG/10 ML VIAL 10 MG IVPUSH (05:40)
[2024-04-15] MEDS: Apixaban 5 MG TABLET PO (06:57)
--- NOTE | 2024-04-15 07:04 | PC.NURSE ---
pt remains in afib, rate controlled 60-70s, provider aware. medicated per DEC.
== END 2024-04-15 07:05 | disposition home or self-care (01) ==
PROVIDERS: Emergency Provider Internal Medicine
DX: I48.0 Paroxysmal atrial fibrillation (principal); S00.81XA Abrasion of other part of head, initial encounter; I10 Essential (primary) hypertension; Z79.899 Other long term (current) drug therapy; W10.9XXA Fall (on) (from) unspecified stairs and steps, initial encounter; Y93.9 Activity, unspecified; Y92.9 Unspecified place or not applicable; Y99.9 Unspecified external cause status
CPT/HCPCS: 36415; 70450; 80053; 83735; 84484; 85025; 85610; 85730; 93005; 96361; 96374; 99285

== ENCOUNTER → 2024-04-15 01:27 | Outpatient (BNV) | payer OTHER, SELFPAY | PROVIDERS: Emergency Provider Internal Medicine; Visit Provider Internal Medicine | DX: I48.91 Unspecified atrial fibrillation (principal) | CPT/HCPCS: 93010 ==

== ENCOUNTER 2024-05-10 08:39 | Outpatient (REF) | payer OTHER, SELFPAY ==
[2024-05-10 12:24] LABS: HIV AB/AG Nonreactive (Nonreactive); HIV Num 1 0.05 S/CO (0.00-0.99)
[2024-05-10 12:25] LABS: Syphilis Screen Nonreactive (Nonreactive)
[2024-05-10 12:27] LABS: Alanine Aminotransferase 10 U/L (0-40); Albumin Level 4.2 g/dL (3.5-5.0); Alkaline Phosphatase 61 U/L (39-117); Anion Gap 9 (12-20); Aspartate Amino Transferase 13 U/L (5-37); Bilirubin Direct 0.3 mg/dL (0.0-0.5); Bilirubin Total 1.1 mg/dL (0.0-1.0); Blood Urea Nitrogen 16 mg/dL (9-16); Calcium 9.5 mg/dL (8.4-10.2); Carbon Dioxide 28 mmol/L (22-29); Chloride 106 mmol/L (96-108); Cholesterol 174 mg/dL (<200); Estimated Glomerular Filt Rate > 60; Glucose Random 88 mg/dL (60-115); HDL Cholesterol 43 mg/dL (>40); LDL Cholesterol Calculated 120 mg/dL (<100); Potassium 4.3 mmol/L (3.3-5.1); Sodium 139 mmol/L (135-145); TSH reflex Free T4 1.02 uIU/mL (0.32-4.0); Total Protein 6.8 g/dL (6.5-8.0); Triglycerides 57 mg/dL (<150)
[2024-05-10 13:20] LABS: CT PCR NOT DETECTED (Not Detect.); NG PCR NOT DETECTED (Not Detect.)
== END 2024-05-10 08:40 | disposition home or self-care (01) ==
LOC: HO.HHCL 08:39
PROVIDERS: Visit Provider Family Medicine
DX: I48.0 Paroxysmal atrial fibrillation (principal); E78.5 Hyperlipidemia, unspecified; Z20.2 Contact with and (suspected) exposure to infections with a predominantly sexual mode of transmission
CPT/HCPCS: 36415; 80048; 80061; 80076; 84443; 86780; 87389; 87491; 87591

== ENCOUNTER 2024-06-13 11:15 | Outpatient (AMB) | payer OTHER, SELFPAY ==
--- NOTE | 2024-06-13 11:21 | MHC.OFFVIS ---
Intake Visit Reasons: testicular/groin pain-PVR Check Intake Note: Patient is Present for Follow Up Testicular/groin pain Urology Medication:None Antibiotic Allergies:Penicillins Blood Thinners:Eileen Patient has been having ongoing groin and testicular pain Get pain and pressure when he needs to urinate States that this has been going on for a long time Photovoltaic Panel Installer Required: No Accompanied by: Self / Same As Patient Allergies Penicillins Allergy (Intermediate, Verified 06/13/24 11:24) RASH HPI Comments Details: Quique is a pleasant male. He is a patient of Dr. Ruiz. He seen for the following urologic conditions - anxiety about health vasectomy evaluation - nocturia - right-sided epididymal tenderness Follow-up from right-sided epididymal tenderness Longstanding discomfort with pressure urinating Trial of tamsulosin Prior evaluation for vasectomy Is considering [facility] Medical History History of palpitations Paroxysmal atrial fibrillation Sleep apnea Anxiety HTN (hypertension) SVT (supraventricular tachycardia) Abdominal pain Surgical History H/O cardiac radiofrequency ablation History of removal of laparoscopic gastric banding device History of adjustable gastric banding Hx of endoscopy History of colonoscopy Family History Father Alive and well Mother Family history of high blood pressure Social History Household Members: Spouse and Children Alcohol intake: never Current occupational status: unemployed Review of Systems Const Denies chills and Denies fever(s) Card Reports no additional complaints and Denies syncope Resp Denies cough GI Denies abdominal pain and Denies heartburn Reports as per HPI and Denies change in libido Neuro Denies syncope Psych Denies change in libido Endo Denies change in libido Physical Exam Const General: cooperative, healthy appearing, comfortable and no acute distress Orientation/consciousness: patient oriented x3 HEENT Face and sinus: Yes normal facial exam Mouth: moist mucous membranes Neck Neck: Yes normal visual inspection, Yes full ROM and Yes trachea midline Chest Chest palpation & inspection: normal inspection of the chest Resp Effort & Inspection: normal respiratory effort, able to speak in complete sentences and no respiratory distress GI Inspection: Yes normal to inspection Back/Spine/Pelvis Cervical Spine: normal cervical lordosis Thoracic/Lumbar Spine: thoracic and lumbar spine normal to inspection Skin General skin exam: no rashes or lesions noted Neuro General: patient oriented x3, gait normal, tone normal and moves all extremities Extrem General: Yes normal to inspection and Yes capillary refill normal Results AMB Urinalysis, Automated UA Leukoctes 0 Thelma/uL Last Edit by Shwetha Cat A on 06/13/24 11:41 UA Nitrite Negative Last Edit by Shwetha Cat A on 06/13/24 11:41 UA Urobilinogen 0.2 mg/dL Last Edit by Shwetha Cat A on 06/13/24 11:41 UA Protein 0 mg/dL Last Edit by Shwetha Cat A on 06/13/24 11:41 UA pH 5.5 Last Edit by Shwetha Cat A on 06/13/24 11:41 UA Blood 0 Royal/uL Last Edit by Shwetha Cat COUNT INCLUDES THE [facility] on 06/13/24 11:41 UA Specific [place] 1.020 Last Edit by Shwetha Cat A on 06/13/24 11:41 UA Ketone Negative Last Edit by Shwetha Cat COUNT INCLUDES THE [facility] on 06/13/24 11:41 UA Bilirubin 0 mg/dL Last Edit by Shwetha Cat A on 06/13/24 11:41 UA Glucose 0 mg/dL Last Edit by Shwetha Cat A on 06/13/24 11:41 Results Reviewed Results Reviewed: Laboratory Last Values Urine pH (Auto) 5.5 06/13/24 11:26 Specific [place] (Auto) 1.020 06/13/24 11:26 Urine Protein (Auto) 0 mg/dL 06/13/24 11:26 Glucose (UA)(Auto) 0 mg/dL 06/13/24 11:26 Urine Ketones (Auto) Negative 06/13/24 11:26 Urine Blood (Auto) 0 Royal/uL 06/13/24 11:26 Urine Nitrite (Auto) Negative 06/13/24 11:26 Urine Bilirubin (Auto) 0 mg/dL 06/13/24 11:26 Urine Urobilinogen (Auto) 0.2 mg/dL 06/13/24 11:26 Leukocyte Esterase (Auto) 0 Thelma/uL 06/13/24 11:26 Assessment & Plan Assessment & Plan (1) Feeling of incomplete bladder emptying: Code(s): R39.14 - Feeling of incomplete bladder emptying Category: Medical (2) Weak urinary stream: Code(s): R39.12 - Poor urinary stream Category: Medical Plan 4-6 week follow-up trial tamsulosin Orders: Orders AMB Urinalysis Automated 06/13/24 Z13.9 - Encounter for screening, unspecified Medications: New tamsulosin 0.4 mg PO BEDTIME 30 caps 1RF 30 days R39.14 - Feeling of incomplete bladder emptying, R35.1 - Nocturia, N40.1 - Benign prostatic hyperplasia with lower urinary tract symptoms Patient Instructions: Imaging studies, laboratory and physical exam results were discussed and reviewed in detail. No major barriers to patient understanding were identified. An opportunity to ask questions regarding the treatment plan was provided. All questions were answered. The patient expressed understanding and agreement with the above treatment plan. The patient is aware they should contact our office by phone for worsening of their current condition or the appearance of new urologic symptoms. Compliance is encouraged with any medications and followup testing that is ordered. It is a privilege to participate in the urologic care of your patient. If you have any questions or concerns regarding treatment for the above conditions, or other urologic issues, please do not hesitate to contact me. The office telephone contact is [phone]. This note is constructed using voice recognition software. While every effort has been made to ensure accuracy nuts and bolts assembler errors may have been included. Yours sincerely, Dr Jagdish Garcia MD, [facility] - Urology Providers of Expert, Compassionate Care for the Genitourinary System Coding Level of Care Code Est Pt Level 4 (32811) Diagnoses Feeling of incomplete bladder emptying R39.14 Weak urinary stream R39.12
== END 2024-06-13 12:04 | disposition home or self-care (01) ==
PROVIDERS: Visit Provider Urology
DX: R39.14 Feeling of incomplete bladder emptying (principal); R39.12 Poor urinary stream
CPT/HCPCS: 99214

== ENCOUNTER → 2024-06-13 11:15 | Outpatient (BNVA) | payer OTHER, SELFPAY | PROVIDERS: Visit Provider Urology | DX: R10.30 Lower abdominal pain, unspecified (principal); N50.819 Testicular pain, unspecified; N40.1 Benign prostatic hyperplasia with lower urinary tract symptoms; R39.14 Feeling of incomplete bladder emptying; R39.12 Poor urinary stream; R35.1 Nocturia | CPT/HCPCS: 81003; 99212 ==

== ENCOUNTER 2024-07-12 12:06 | Outpatient (AMB) | payer OTHER, SELFPAY ==
--- NOTE | 2024-07-12 12:07 | A.OFFVIS_ITS ---
Intake Visit Reasons: 1m follow up Allergies Penicillins Allergy (Intermediate, Verified 06/13/24 11:24) RASH HPI Comments Details: Quique is a pleasant male. He is a patient Dr. Ruiz. He is seen for the following urologic conditions - lower urinary tract symptoms - anxiety about health Telemedicine Evaluation 15 min Consultation [employer] Antonietta Video brewmaster provided by qualified medical office professional instructor moderate improvement of tamsulosin six-month follow-up Vasectomy evaluation The patient presents for vasectomy consultation.? He is currently . He has fathered -?2 children, with two partners The youngest child is - 6 years old? His is currently with no partner Current form of control is patient is not sexually active at this time. Current employment is none; was previously a automobile mechanic supervisor. The vasectomy may be complicated due to a history of no complicating issues. Patient education has been provided via AUA video, via printed information, risks of failure, recovery time, bruising and potential pain syndrome have been stressed Discussion today focused on the presence of vasectomy and the risks, benefits and alternatives that are available. Vasectomy as intended as a permanent form of control. Printed information and literature was provided to the patient. Overall there is a one in 2500 failure rate. This can occur at any time after vasectomy. Risks were discussed highlighting hematoma, spermatocele, epididymal congestion, development of sperm antibodies, and development of chronic pain estimated between 1-5%. The procedure was reviewed in detail. Anatomical diagrams of the male genitalia were used to explain the location of the vas deferens. The vas deferens will be transected, the proximal end will be cauterized, a metal clip would be applied to separate the 2 vas deferens ends. It was explained the procedure will be done in the office and takes approximately 10-15 minutes. Less common problems that arise with vasectomy include hematoma, bleeding, allergic reaction to anesthetic, epididymal infection, epididymal congestion, scrotal discomfort, spermatic leak, spermatic granuloma and the possibility of antisperm antibodies. He understands these risks and wishes to proceed. Consent was signed at the office today. He also understands that it takes 12 weeks for sperm to fully clear the system. He will need to provide a semen sample at 12 weeks and if this is not clear a 2nd sample at 16 weeks. Medical clearance to stop using protection will only be provided if he satisfies published criteria for sperm clearance. [facility] Medical History History of palpitations Paroxysmal atrial fibrillation Sleep apnea Anxiety HTN (hypertension) SVT (supraventricular tachycardia) Abdominal pain Surgical History H/O cardiac radiofrequency ablation History of removal of laparoscopic gastric banding device History of adjustable gastric banding Hx of endoscopy History of colonoscopy Family History Father Alive and well Mother Family history of high blood pressure Social History Household Members: Spouse and Children Alcohol intake: never Current occupational status: unemployed Review of Systems Const All systems reviewed & are unremarkable except as noted in HPI and below Reports no additional complaints Resp Reports no additional complaints GI Reports no additional complaints Reports as per HPI Musc Reports no additional complaints Physical Exam Telemedicine evaluation Appropriate responses Regular breathing rate and rhythm HEENT Head: Yes normal to inspection Ears: hearing grossly normal bilaterally Eyes General: appearance normal, both eyes and all related structures Neck Neck: Yes normal visual inspection Chest Chest palpation & inspection: normal inspection of the chest Resp Effort & Inspection: normal respiratory effort and able to speak in complete sentences Telehealth Telehealth Location of provider rendering services: practice address Location of patient: address on file Patient Identification confirmed using: Name, : Yes Telehealth method: voice only Patient verbally consented to treatment: Yes Patient verbally consented to billing insurance company: Yes Patient informed of any privacy concerns related to visit: Yes Assessment & Plan Assessment & Plan (1) Nocturia: Code(s): R35.1 - Nocturia Category: Medical (2) Weak urinary stream: Code(s): R39.12 - Poor urinary stream Category: Medical Plan six-month follow-up Patient Instructions: Imaging studies, laboratory and physical exam results were discussed and reviewed in detail. No major barriers to patient understanding were identified. An opportunity to ask questions regarding the treatment plan was provided. All questions were answered. The patient expressed understanding and agreement with the above treatment plan. The patient is aware they should contact our office by phone for worsening of their current condition or the appearance of new urologic symptoms. Compliance is encouraged with any medications and followup testing that is ordered. It is a privilege to participate in the urologic care of your patient. If you have any questions or concerns regarding treatment for the above conditions, or other urologic issues, please do not hesitate to contact me. The office telephone contact is [phone]. This note is constructed using voice recognition software. While every effort has been made to ensure accuracy manager urology errors may have been included. Yours sincerely, Dr Jagdish Garcia MD, [facility] - Urology Providers of Expert, Compassionate Care for the Genitourinary System Coding Level of Care Code Tele Est Pt Level 3 (70103) Diagnoses Nocturia R35.1 Weak urinary stream R39.12
== END 2024-07-12 16:30 | disposition home or self-care (01) ==
LOC: HO.HUSH 12:06
PROVIDERS: Visit Provider Urology
DX: R35.1 Nocturia (principal); R39.12 Poor urinary stream
CPT/HCPCS: 99213

== ENCOUNTER → 2024-07-12 12:06 | Outpatient (BNVA) | payer OTHER, SELFPAY | PROVIDERS: Visit Provider Urology ==

== ENCOUNTER 2024-11-06 19:39 | Emergency (ER) | payer OTHER, SELFPAY ==
[2024-11-06 19:48] VITALS: BP 137/93; PULSE 84; RESP 20; TEMP 36.4; O2SAT 100; BMI 31.0
[2024-11-06] MEDS: Ondansetron ODT 4 MG TAB.RAPDIS TRANSLINGU (19:56)
--- NOTE | 2024-11-06 19:57 | ED.GENADULT ---
HPI - General Adult General Chief complaint: Nausea/Vomiting/Diarrhea Stated complaint: Nausea/Vomiting/Flu like symptoms Time Seen by Provider: 11/06/24 23:23 Source: patient Mode of arrival: ambulatory Limitations: no limitations History of Present Illness ED Provider: Aisha Shanks NP HPI narrative: Patient is a 39 year old male who presents emergency department for evaluation. Reports that today he began with nausea and vomiting, reports at least 10 episodes of bilious nonbloody vomiting, chills but no reported fever. Denies any known sick contacts. Has had intermittent diffuse abdominal cramping. Currently without abdominal pain. Denies history of similar symptoms. Denies chest pain, diarrhea, constipation, hematochezia, melena, dysuria, urinary frequency, urinary urgency, urinary hesitancy, hematuria. denies testicular pain/urethral discharge or scrotal swelling. Related Data Home Medications ?Medication ?Instructions ?Recorded ?Confirmed clonazepam 0.5 mg tablet 0.5 mg PO DAILY 11/18/20 06/23/22 metoprolol succinate 50 mg 100 mg PO DAILY 06/23/22 06/23/22 tablet,extended release 24 hr Previous Rx's ?Medication ?Instructions ?Recorded diazepam 2 mg tablet 2 mg PO BID PRN anxiety 1 day #2 02/24/24 tabs meloxicam 15 mg tablet 15 mg PO DAILY 14 days #14 tabs 02/24/24 acetaminophen 300 mg-codeine 30 mg 1 tab PO Q8H 3 days #9 tabs 02/28/24 tablet apixaban 5 mg tablet (Eliquis) 5 mg PO BID #60 tabs 04/15/24 tamsulosin 0.4 mg capsule 0.4 mg PO BEDTIME 30 days #30 caps 06/13/24 ondansetron 4 mg disintegrating 4 mg PO Q8H PRN nausea and 11/07/24 tablet vomiting #10 tabs Allergies Allergy/AdvReac Type Severity Reaction Status Date / Time Penicillins Allergy Intermediate RASH Verified 11/06/24 19:50 Review of Systems Review of Systems: Yes all other systems are reviewed and are negative PMFSH Past Medical History Attestation statement: The following information was validated with the patient. Source: old records reviewed Medical History History of palpitations Paroxysmal atrial fibrillation Sleep apnea Anxiety HTN (hypertension) SVT (supraventricular tachycardia) Abdominal pain Surgical History H/O cardiac radiofrequency ablation History of removal of laparoscopic gastric banding device History of adjustable gastric banding Hx of endoscopy History of colonoscopy Family History Family History Father Alive and well Mother Family history of high blood pressure Social History Social History Household Members: Spouse and Children Alcohol intake: never Smoked in Last 30 Days: No Use of substances other than those prescribed or required for medical reasons: No Advance Directives: No Advance Directives Information Provided: No Do you have a plan to hurt others: No Plan Current occupational status: unemployed Physical Exam ED Vital Signs: Vital Signs - 24 hr 11/06/24 19:48 11/06/24 22:31 11/07/24 01:57 Temperature 97.5 F 98.1 F 98.1 F Pulse Rate 84 71 73 Respiratory Rate 20 18 16 Blood Pressure 137/93 H 101/62 128/77 Pulse Oximetry 100 98 98 Oxygen Delivery Method Room Air Room Air Room Air 11/07/24 03:31 11/07/24 03:31 11/07/24 03:31 Temperature Pulse Rate 87 88 107 H Respiratory Rate Blood Pressure 121/77 131/83 120/79 Pulse Oximetry Oxygen Delivery Method 11/07/24 04:29 Temperature 98.1 F Pulse Rate 107 H Respiratory Rate 18 Blood Pressure 131/83 Pulse Oximetry 98 Oxygen Delivery Method Room Air BMI result Body Mass Index 31.0 Appearance: Alert.?Oriented to person, place and time. No acute distress.?Normal affect.?? Neck: Normal inspection.? Neck supple.?? CVS: Heart sounds normal. Normal heart rate and rhythm.? Pulses normal.?? Respiratory: No respiratory distress.? Lung sounds clear to auscultation bilaterally?? Abdomen: Soft and non-tender. No rebound tenderness at McBurney's point. Negative psoas sign. Negative Rovsing sign. Negative Rankin sign. No CVAT. Normoactive bowel sounds. No pulsatile mass.?? Skin: Skin warm and dry.? Normal skin color.? Extremities: No lower extremity edema.? Neuro: Moves all extremities spontaneously. Sensation intact bilaterally. Ambulates with normal steady gait. Course Course Course Narrative: RME: 39-year-old male presents to ED for nausea lightheadedness and abdominal pain. Patient denied any urinary symptoms or diarrhea. Reevaluation(s) Reevaluation #1: Patient reports significant improvement in his symptoms after being medicated. He would like to trial something to drink as well as something to eat. Should he tolerate p.o. trial I anticipate discharge home with prescription for antiemetic strict return precautions and outpatient follow-up with PCP as needed. Dr. Arciniega made aware for re-evaluation should he not tolerare PO trial Medications Administered Discontinued Medications Generic Name Dose Route Start Last Admin Trade Name Freq PRN Reason Stop Dose Admin Sodium Chloride 1,000 mls @ 999 mls/hr 11/07/24 01:00 11/07/24 02:15 Ns IV 11/07/24 02:00 Infused .Q1H1M JENIFER Infusion Lorazepam 0.5 mg 11/07/24 01:23 11/07/24 01:35 Lorazepam 2 Mg/Ml Vial IVPUSH 11/07/24 01:24 0.5 mg ONCE ONE Administration Ondansetron HCl 4 mg 11/06/24 19:53 11/06/24 19:56 Ondansetron Odt 4 Mg Tab.Rapdis TRANSLINGU 11/06/24 19:54 4 mg ONCE ONE Administration Ondansetron HCl 4 mg 11/07/24 00:58 11/07/24 01:15 Ondansetron Hcl 4 Mg/2 Ml Vial IVPUSH 11/07/24 00:59 4 mg ONCE ONE Administration Medical Decision Making Medical Decision Making MDM Narrative: Patient is a 39-year-old female past medical history of atrial fibrillation previous ablation anticoagulated on Eliquis, anxiety, ANGEL on CPAP, hypertension, SVT, history of gastric band with removal in 2016 who presents emergency department for evaluation of nausea vomiting intermittent lightheadedness with onset today. At the time of my evaluation he appears fatigued, dry heaving. Received sublingual Zofran without much improvement. Abdominal examination is benign, low suspicion for acute surgical abdomen. He is afebrile without tachycardia, no hypotension. He has no rigidity guarding or rebound tenderness. Denies any recent URI symptoms that would suggest a pneumonia. Clinical picture appears most consistent with likely a viral gastroenteritis given local pattern of gastrointestinal illness. Given his negative abdominal exam I suspect that acute cholecystitis, choledocholithiasis is unlikely no fever jaundice that would suggest acute cholangitis. Denies associated reflex, epigastrium left upper quadrant is without tenderness to suggest pancreatitis, no history of diabetes or excessive alcohol consumption. Lower clinical suspicion for appendicitis, diverticulitis, no appreciable hernia to suggest strangulation/incarceration. No associated symptoms to suggest UTI/pyelonephritis. Reviewed serum labs obtained prior to my assumption. CBC is without anemia or thrombocytopenia. No electrolyte derangement. No MARICEL. LFTs and lipase are within normal range. High sensitive troponin is below detectable limits, EKG revealing normal sinus rhythm with ventricular rate of 81, QTC 415, no ST elevation or ST depression, no acute ischemic findings. Urinalysis without evidence of infection though is concentrated likely in the setting of dehydration. Will assess orthostatic vital signs, as this may be resultant from dehydration subsequently causing his lightheadedness. Viral serologies and group a strep testing is negative. Patient received 1 L normal saline IV fluid in addition to Zofran 4 mg IV. Differential Diagnosis Differential Diagnoses: The differential diagnosis associated with the presentation includes (See narrative above) Admission/Observation Consideration of admission/observation: Escalation of care including admission/observation considered (See narrative above ) Lab Data MDM Lab Attestation statement: I reviewed the patient's lab results. 11/06/24 20:24 11/06/24 20:24 Labs: Lab Results 11/06/24 Range/Units 20:24 WBC 9.7 (4.8-10.8) X10*3/uL RBC 5.41 (4.60-5.80) X10*6/uL Hgb 15.7 (14.0-18.0) g/dl Hct 46.6 (42.0-52.0) % MCV 86.1 (80.0-98.0) fL MCH 29.0 (27.0-33.0) pg MCHC 33.7 (31.0-36.0) g/dl RDW 12.1 (11.0-16.0) % Plt Count 244 (160-400) X10*3/uL MPV 10.5 (9.4-12.4) fL Immature Gran % (Auto) 0.3 (0.0-0.4) % Neut % (Auto) 81.3 H (45-73) % Lymph % (Auto) 13.3 L (20-40) % [place] % (Auto) 4.4 (2-11) % Eos % (Auto) 0.4 (0-4) % Baso % (Auto) 0.3 (0-2) % Lymph # (Auto) 1.3 (1.2-4.9) X10*3/uL [place] # (Auto) 0.4 (0.1-1.2) X10*3/uL Eos # (Auto) 0.0 (0.0-0.4) X10*3/uL Baso # (Auto) 0.0 (0.0-0.2) X10*3/uL Abs Immat Gran (auto) 0.03 (0.00-0.03) X10*3/uL Absolute Neuts (auto) 7.9 (2.0-8.3) x10*3/uL Absolute Nucleated RBC 0.000 (0.0-0.012) X10*3/uL Nucleated RBC % (auto) 0.0 (0.0-0.2) /100WBC Sodium 143 (135-145) mmol/L Potassium 3.7 (3.3-5.1) mmol/L Chloride 108 (96-108) mmol/L Carbon Dioxide 27 (22-29) mmol/L Anion Gap 12 (12-20) BUN 22 H (9-16) mg/dL Creatinine 0.85 (0.5-1.4) mg/dL Estim Creat Clear Calc 139.6 Estimated GFR > 60 Random Glucose 91 (60-115) mg/dL Calcium 8.8 D (8.4-10.2) mg/dL Total Bilirubin 0.8 (0.0-1.0) mg/dL AST 21 (5-37) U/L ALT 16 (0-40) U/L Alkaline Phosphatase 72 (39-117) U/L Troponin I High Sens < 2.7 (<3.5-35.0) ng/L Total Protein 7.1 (6.5-8.0) g/dL Albumin 4.3 (3.5-5.0) g/dL Lipase 19 (8-78) U/L Urine Color Yellow Urine Appearance Clear Urine pH 6.5 (5.0-9.0) Ur Specific [place] >= 1.030 H (1.005-1.025) Urine Protein Negative (Neg-Trace) mg/dL Urine Glucose (UA) Negative (Negative) mg/dL Urine Ketones Trace (Negative) mg/dL Urine Blood Negative (Negative) Urine Nitrite Negative (Negative) Ur Leukocyte Esterase Negative (Negative) Influenza Type A (PCR) NEGATIVE (Negative) Influenza Type B (PCR) NEGATIVE (Negative) RSV RNA Qual (PCR) NEGATIVE (Negative) SARS-CoV-2 RNA (RT-PCR) NEGATIVE (Negative) S. pyogenes GrpA ELIZABETH Negative (Negative) Independent Interpretation I performed an independent interpretation of an: EKG (See narrative above) Independent Historian Clinical information obtained from an independent historian. History obtained from or confirmed by: Other (Family) External Record Review External record reviewed: Inpatient record and Outpatient record Tests considered The following testing was considered but not selected: CT of the abdomen and pelvis deferred, benign examination suspect likely viral gastroenteritis smiling or seizures symptomatic treatment. Chronic Conditions Patient?s care impacted by: Other (See narrative above) Discharge Plan Discharge Clinical Impression: Gastroenteritis Patient Disposition: Home, Self-Care Additional Instructions: Clear liquids over the next 24 hours followed by a bland diet. Introduce a bland diet including crackers, bananas, rice, soup, toast, and boiled vegetables. This may progress to plain baked or boiled chicken or turkey. Avoid dairy products or foods high in fat or grease. Use Zofran as needed for nausea/vomiting. Be sure that you are staying well hydrated and drinking plenty of fluids throughout the day. Return with any new or worsening symptoms or concerns. Follow-up with primary care doctor. Prescriptions: New ondansetron 4 mg tablet,disintegrating 4 mg PO Q8H PRN (Reason: nausea and vomiting) Qty: 10 0RF No Action acetaminophen-codeine 300-30 mg tablet 1 tab PO Q8H 3 Days Qty: 9 0RF Eliquis 5 mg tablet 5 mg PO BID Qty: 60 0RF metoprolol succinate 50 mg tablet extended release 24 hr 100 mg PO DAILY clonazepam 0.5 mg tablet 0.5 mg PO DAILY meloxicam 15 mg tablet 15 mg PO DAILY 14 Days Qty: 14 0RF diazepam 2 mg tablet 2 mg PO BID PRN (Reason: anxiety) 1 Days Qty: 2 0RF Rx Instructions: Take medication after arrival at office tamsulosin 0.4 mg capsule 0.4 mg PO BEDTIME 30 Days Qty: 30 1RF Referrals: Traci Ruiz MD [Primary Care Provider] - Interventions: ED Discharge Assessment Last Done: 11/07/24 04:29 Discharge Date/Time: 11/07/24 04:44 Print Language: Italian
--- NOTE | 2024-11-06 19:58 | ECG_ITS ---
Test Reason : N/V Blood Pressure : */* mmHG Vent. Rate : 81 BPM Atrial Rate : 81 BPM P-R Int : 148 ms QRS Dur : 80 ms QT Int : 358 ms P-R-T Axes : 67 38 21 degrees QTcB Int : 415 ms Normal sinus rhythm Normal ECG When compared with ECG of 15-Apr-2024 01:27, Sinus rhythm has replaced Atrial fibrillation Referred By: Dong Pan Electronically Signed By: NNAMDI RUBY
[2024-11-06 20:35] LABS: MANUAL DIFF FLAG NO
[2024-11-06 20:38] LABS: Basophils Percent Auto 0.3 % (0-2); Eosinophils Percent Auto 0.4 % (0-4); Hematocrit 46.6 % (42.0-52.0); Hemoglobin 15.7 g/dl (14.0-18.0); Imm Gran Abs Auto 0.03 X10*3/uL (0.00-0.03); Imm Gran Pct Auto 0.3 % (0.0-0.4); Lymphocytes Absolute Auto 1.3 X10*3/uL (1.2-4.9); Lymphocytes Percent Auto 13.3 % (20-40); Mean Corpuscular HGB Conc 33.7 g/dl (31.0-36.0); Mean Corpuscular Volume 86.1 fL (80.0-98.0); Mean Platelet Volume 10.5 fL (9.4-12.4); Monocytes Absolute Auto 0.4 X10*3/uL (0.1-1.2); Monocytes Percent Auto 4.4 % (2-11); Neutrophils Absolute Auto 7.9 x10*3/uL (2.0-8.3); Neutrophils Percent Auto 81.3 % (45-73); Platelet Count 244 X10*3/uL (160-400); Red Blood Count 5.41 X10*6/uL (4.60-5.80); Red Cell Distribution Width 12.1 % (11.0-16.0); White Blood Count 9.7 X10*3/uL (4.8-10.8)
[2024-11-06 20:46] LABS: IDNOW Serial# 6674DD1D; Strep A Nucleic Acid Negative (Negative)
[2024-11-06 20:59] LABS: Alanine Aminotransferase 16 U/L (0-40); Albumin Level 4.3 g/dL (3.5-5.0); Alkaline Phosphatase 72 U/L (39-117); Anion Gap 12 (12-20); Aspartate Amino Transferase 21 U/L (5-37); Bilirubin Total 0.8 mg/dL (0.0-1.0); Blood Urea Nitrogen 22 mg/dL (9-16); Calcium 8.8 mg/dL (8.4-10.2); Carbon Dioxide 27 mmol/L (22-29); Chloride 108 mmol/L (96-108); Creatinine Clr Calc Pharmacy 139.6; Estimated Glomerular Filt Rate > 60; Glucose Random 91 mg/dL (60-115); Lipase 19 U/L (8-78); Potassium 3.7 mmol/L (3.3-5.1); Sodium 143 mmol/L (135-145); Total Protein 7.1 g/dL (6.5-8.0)
[2024-11-06 21:07] LABS: Troponin-I High Sensitivity < 2.7 ng/L (<3.5-35.0)
[2024-11-06 21:17] LABS: Influenza A PCR NEGATIVE (Negative); Influenza B PCR NEGATIVE (Negative); Resp Syncy Virus RNA Qual PCR NEGATIVE (Negative); SARS COV2 PCR INHOUSE NEGATIVE (Negative)
[2024-11-06 22:00] LABS: Appearance Urine Clear; Color Urine Yellow; Glucose Urine UA Negative (Negative); Leukocyte Esterase Urine Negative (Negative); Nitrite Urine Negative (Negative); PH 6.5 (5.0-9.0); Specific Gravity - Urine >= 1.030 (1.005-1.025); Urine Blood Negative (Negative); Urine Ketones Trace mg/dL (Negative); Urine Protein Negative (Neg-Trace)
[2024-11-06 22:31] VITALS: BP 101/62; PULSE 71; RESP 18; TEMP 36.7; O2SAT 98
[2024-11-07] MEDS: ondansetron HCL 4 MG/2 ML VIAL IVPUSH (01:15)
[2024-11-07] MEDS: 0.9 % Sodium Chloride 1,000 ML 999 ML IV (01:16)
[2024-11-07] MEDS: LORazepam 2 MG/ML VIAL 0.5 MG IVPUSH (01:35)
--- NOTE | 2024-11-07 01:38 | PC.NURSE ---
Pt medicated per dec. Plan of care ongoing.
[2024-11-07 01:57] VITALS: BP 128/77; PULSE 73; RESP 16; TEMP 36.7; O2SAT 98
[2024-11-07 03:31] VITALS: BP 120/79; BP 121/77; BP 131/83; PULSE 107; PULSE 87; PULSE 88
[2024-11-07 04:29] VITALS: BP 131/83; PULSE 107; RESP 18; TEMP 36.7; O2SAT 98
== END 2024-11-07 04:44 | disposition home or self-care (01) ==
PROVIDERS: Physician Assistant; Emergency Provider Internal Medicine; PCP Family Medicine
DX: K52.9 Noninfective gastroenteritis and colitis, unspecified (principal); R11.2 Nausea with vomiting, unspecified; R42 Dizziness and giddiness; R10.2 Pelvic and perineal pain; Z79.899 Other long term (current) drug therapy; Z03.818 Encounter for observation for suspected exposure to other biological agents ruled out
CPT/HCPCS: 0241U; 36415; 80053; 81003; 83690; 84484; 85025; 87651; 93005; 96361; 96374; 96375; 99284; 99285; J2060; J2405

== ENCOUNTER → 2024-11-06 19:58 | Outpatient (BNV) | payer OTHER, SELFPAY | PROVIDERS: Emergency Provider Internal Medicine; PCP Family Medicine; Visit Provider Internal Medicine | DX: I48.91 Unspecified atrial fibrillation (principal) | CPT/HCPCS: 93010 ==

== ENCOUNTER 2025-01-10 08:48 | Outpatient (REF) | payer OTHER, SELFPAY ==
[2025-01-10 11:37] LABS: MANUAL DIFF FLAG NO
[2025-01-10 11:47] LABS: Basophils Percent Auto 0.2 % (0-2); Eosinophils Percent Auto 0.8 % (0-4); Hematocrit 43.7 % (42.0-52.0); Imm Gran Abs Auto 0.01 X10*3/uL (0.00-0.03); Imm Gran Pct Auto 0.2 % (0.0-0.4); Lymphocytes Absolute Auto 1.2 X10*3/uL (1.2-4.9); Lymphocytes Percent Auto 23.7 % (20-40); Mean Corpuscular Hemoglobin 27.8 pg (27.0-33.0); Mean Corpuscular Volume 86.9 fL (80.0-98.0); Mean Platelet Volume 11.3 fL (9.4-12.4); Monocytes Absolute Auto 0.3 X10*3/uL (0.1-1.2); Neutrophils Absolute Auto 3.3 x10*3/uL (2.0-8.3); Neutrophils Percent Auto 68.1 % (45-73); Platelet Count 233 X10*3/uL (160-400); Red Blood Count 5.03 X10*6/uL (4.60-5.80); Red Cell Distribution Width 12.6 % (11.0-16.0); White Blood Count 4.9 X10*3/uL (4.8-10.8)
[2025-01-10 12:14] LABS: Alanine Aminotransferase 13 U/L (0-40); Albumin Level 3.8 g/dL (3.5-5.0); Alkaline Phosphatase 64 U/L (39-117); Aspartate Amino Transferase 20 U/L (5-37); Bilirubin Direct 0.2 mg/dL (0.0-0.5); Bilirubin Total 0.6 mg/dL (0.0-1.0); Cholesterol 145 mg/dL (<200); HDL Cholesterol 42 mg/dL (>40); LDL Cholesterol Calculated 92 mg/dL (<100); Total Protein 7.1 g/dL (6.5-8.0); Triglycerides 57 mg/dL (<150)
[2025-01-18 16:39] LABS: Testosterone, Total 472 ng/dL (250-1100)
== END 2025-01-10 08:49 | disposition home or self-care (01) ==
LOC: HO.HHCL 08:48
PROVIDERS: Visit Provider Family Medicine
DX: I10 Essential (primary) hypertension (principal)
CPT/HCPCS: 36415; 80061; 80076; 84403; 85025

== ENCOUNTER 2025-01-14 11:10 | Outpatient (REF) | payer OTHER, SELFPAY ==
--- NOTE | ~2025-01-14 | US_ITS ---
EXAMINATION: US SCROTUM HISTORY: chronic right testicle pain. COMPARISONS: Comparison is made with the prior examination dated 12/05/2019. FINDINGS: Real-time grayscale ultrasound imaging of the scrotum was performed. RIGHT TESTICLE: The right testis measures 5.0 x 2.1 x 3.2 cm and demonstrates normal homogeneous echotexture. No masses are seen. The right testis demonstrates normal color Doppler flow. RIGHT EPIDIDYMIS: Normal in size, shape, and vascularity. LEFT TESTICLE: The left testis measures 4.5 x 2.2 x 3.0 cm and demonstrates normal homogeneous echotexture. No masses are seen. The left testis demonstrates normal color Doppler flow. LEFT EPIDIDYMIS: Normal in size, shape, and vascularity. Again seen is a 4 x 2 x 3 mm cyst of the epididymal head. VARICOCELE: There are small bilateral varicoceles. HYDROCELE: No significant hydrocele is seen. OTHER COMMENTS: None. US/US scrotum IMPRESSION: Small bilateral varicoceles. 4 mm left epididymal head cyst. Otherwise unremarkable scrotal ultrasound. Electronically signed by: Ryan Welch MD 01/14/2025 01:11 PM EDT
--- OUTSIDE RECORDS SUMMARY | 2025-01-14 13:12 | XMS_ITS | Encounter Summary ---
Author Organization [employer] Address [address] [facility] [address] [place] [address] Care Team Providers Care Shearer Screen Measurer And Trimmer Name Role Phone Traci Ruiz MD Primary Care Provider [phone] Luisa Lee PharmD Unavailable [phone]- [phone] Reason for Referral * Consultation (Routine) - Closed Specialty Diagnoses / Procedures Referred By Contac t Referred To Contact Urology Diagnoses Pain in right testicle rTaci Ruiz MD [address] [place] [address] Phone: tel: fax: Referral ID Status Reason Start Date Expiration Date V isits Requested Visits Authorized [id number] Closed Specialty Services Required 01/02/2025 01/02/2026 1 1 Reason for Visit * Reason Comments Follow-up Encounter Details Date Type Department Care Team (Late st Contact Info) Description 01/02/2025 11:30 AM EST Office Visit [facility] [address] [place] [address] [phone] Traci Ruiz MD [address] [place] [phone] Essential hypertension (Primary Dx); Obstructive sleep apnea of adult; Paroxysmal atrial fibrillation (CMS/HCC); Pain in right testicle; Class 1 obesity due to excess calories with serious comorbidity and body mass index (BMI) of 32.0 to 32.9 in adult; Dietary counseling; Exercise counseling; Encounter for immunization; Other specified counseling Social History Tobacco Use Types Packs/Day Years Used Date Smoking Tobacco: Never Passive Smoke Exposure: Past Smokeless Tobacco: Never Alcohol Use Standard Drinks/Week Comments Never 0 (1 standard drink = 0.6 oz pur e alcohol) Depression Answer Date Recorded Patient Health Questionnaire-9 Score 0 04/30/2024 Patient Health Questionnaire-9 Score 0 04/30/2024 Last PHQ-9: Questionnaire Data Not on file 0 04/30/2024 Housing Stability Answer Date Recorded What is your housing situation today? I have echo nelson 11/29/[address] you li ve. Do you have problems with any of the following? None of the above 11/29/2023 Food Insecurity Answer Date Recorded Within the past 12 months, y ou worried that your food would run out before you got money to buy more: Never True 11/29/2023 Within the past 12 months,th e food you bought just didn't last and you didn't have enough money to get more: Never True Transportation Answer Date Recorded In the past 12 months, has l ack of transportation kept you from medical appts, meetings, work or from getting things needed for daily living? No 11/29/2023 Utilities Answer Date Recorded In the past 12 months, has t he electric, gas, oil or water company threatened to shut off services in your home? No 11/29/2023 Depression Answer Date Recorded Patient Health Questionnaire-2 Score 0 04/30/2024 Internet Access Answer Date Recorded Internet Access Q1 No 07/02/2024 Internet Access Q2 I do not want or need it 12/2023 Sex and Gender Information Value Date Recorded Sex Assigned at Male 08/30/2022 10:17 AM EDT Legal Sex Male 10:17 AM EDT Gender Identity Male 08/30/2022 10:17 AM EDT Sexual Orientation Straight 08/30/2022 10 :17 AM EDT documented as of this encounter Last Filed Vital Signs Vital Sign Reading Time Taken Comments Blood Pressure 124/80 01/02/2025 11:36 AM EST Pulse 73 01/02/2025 11:36 AM EST Temperature 37.2 ??C (98.9 ??F) 01/02/2025 11:[address] Respiratory Rate 20 01/02/2025 11:36 AM EST Oxygen Saturation 98% 01/02/2025 11:36 AM EST Inhaled Oxygen Concentration - - Weight 105 kg (230 lb 6.4 oz) 01/02/2025 11:36 A M EST Height 180.3 cm (5' 11 ) 01/02/2025 11:36 AM EST Body Mass Index 32.13 01/02/2025 11:36 AM EST documented in this encounter Progress Notes * Traci Ruiz MD - 01/02/2025 11:30 AM EST Subjective Patient ID: Quique Reddy is a 39 y.o. male hypertension, atrial fibrillation, GERD, dyslipidemia, ANGEL, and degenerative disc disease who presents for Follow-up. Reports overall doing well. He notes he is taking testosterone form a friend at the gym. Pt notes he understands the risks. He reports he is taking 0.5cc weekly. Pt reports continued right-sided testicular pain that comes and goes. Was seen by Urology with unremarkable US in 2019. Wants to have a second opinion and then is interested in vasectomy once pain has been worked up. Review of Systems Constitutional: Negative for fever and unexpected weight change. Respiratory: Negative for shortness of breath. Cardiovascular: Negative for chest pain. Gastrointestinal: Negative for abdominal pain. Genitourinary: Positive for testicular pain. Negative for difficulty urinating. Objective Visit Vitals BP 124/80 (BP Location: Left arm, Patient Position: Sitting, BP Cuff Size: Adult long) Pulse 73 Temp 98.9 ??F (37.2 ??C) (Temporal) Resp 20 Body mass index is 32.13 kg/m??. Physical Exam Constitutional: Appearance: Normal appearance. Cardiovascular: Rate and Rhythm: Normal rate and regular rhythm. Heart sounds: Normal heart sounds. Pulmonary: Effort: Pulmonary effort is normal. Breath sounds: Normal breath sounds. Neurological: Mental Status: Mental status is at baseline. Psychiatric: Behavior: Behavior normal. Problem List Items Addressed This Visit Essential hypertension - Primary -Blood pressure is at goal -Continue lifestyle modifications -Continue Metoprolol ER 100mg daily Relevant Orders FLU VACCINE TRIVALENT (Fluarix) 6 mo + (Completed) Testosterone, Total, males (Adult), IA CBC auto differential Hepatic Function Panel Lipid Panel, Standard Obstructive sleep apnea of adult -CPAP machine was taken by company for fixing and never returned. Recent sleep study without significant ANGEL. Atrial fibrillation (CMS/HCC) Stabe IIIa -Hx atrial fibulation s/p catheter ablation in December 2011 undergoing pulmonary vein isolation usingcryoablation. Procedure went well and he had four-vein isolation at that time. -Since then he has had a few episodes of atrial fibrillation that lasted some time and self terminated. He went to the [facility] ER on 12/16/13 with chest discomfort and was found to be in afib. Cardioversion was offered by he declined. Case was discussed with patient services manager, Dr. Tirado, who recommended asp irin therapy and outpatient follow up. He left against medical advise. He was prescribed [id number] and flecainide daily but could not tolerate the side effects. He was also prescribed aspirin 325 but is not taking it daily. -At visit 04/2014 he told me he would not take medication but agreed to low dose metoprolol of 25mg which he is tolerated well -He walked into cardiology 01/2019 with palpitations and was found to be in a fib. Dr. Winter recommended flecainide, pill in pocket approach and continue metoprolol. -Followed by cardiology, seen 10/19/[address] Winter. Note states he had one prolonged episode of very brief flutters. His CHADVASc score suggests no need for anticoagulation, They recommend continue metoprolol 100mg daily for rate control hypertension. -He is tolerating metoprolol ER 100mg daily well. -Was seen in ED after syncopal episode 03/2024 had been kayaking all day and had a few glasses of wine. In ER K was 3.3 Mg 1.9 did not convert following 200 then 100 of flecainide. He was discharted in A fib with rate control. -Started on Eliquis but pt did not take it as he started feeling better. -Seen by [facility] Cadence Mars NP 11/21/24, continue with flecanied pill in pocket, daily metoprolol, [id number] 1 for hypertension, no indication for continued anticoagulant therapy , echo was ordered. Follow up 6 months recommended Pain in right testicle Ongoing, intermittent right-sided testicular pain since . -Saw urology in 2019 with unremarkable US. Wants second opinion. -referred back to urology 01/02/25 Relevant Orders Referral to Urology Class 1 obesity due to excess calories with serious comorbidity and body mass index (BMI) of 32.0 to 32.9 in adult Discussed weight, diet, exercise with patient in relation to health conditions. Used motivational interviewing to illicit change talk and established initial goals with patient. Dietary counseling Dietary Recommendations: Fruits, vegetables, whole grains, protein foods, and fat-free or low-fat dairy products are healthychoices. Eat different types of protein foods in your diet. This can include seafood, lean meats, poultry, beans, peas, lentils, nuts, seeds, soy products, and eggs. Limit foods and beverages higher in added sugars, saturated fat, and sodium. Exercise counseling Exercise Recommendations: At least 150 minutes of moderate-intensity physical activity per week, or an equivalent combinationof moderate- and vigorous-intensity activity Encounter for immunization Relevant Orders FLU VACCINE TRIVALENT (Fluarix) 6 mo + (Completed) Other specified counseling Taking testosterone non-prescribed on the street. Understands risk and counseled on precautions. Using clean needles. Will check labs 01/02/25 Follow up in about 4 weeks (around 01/30/2025) for f/u labs and bp. I, Caren Mart, am serving as a scribe to document services personally performed by Dr. Jones, based on the patient's response to questions by provider and providers statements to me. documented in this encounter Miscellaneous Notes * Assessment & Plan Note - Caren Mart - 01/02/2025 2:38 PM ESTAssociated Problem(s): Other specified counseling Taking testosterone non-prescribed on the street. Understands risk and counseled on precautions. Using clean needles. Will check labs 01/02/25 * Assessment & Plan Note - Caren Mart - 01/02/2025 2:37 PM ESTAssociated Problem(s): Pain in right testicle Ongoing, intermittent right-sided testicular pain since . -Saw urology in 2019 with unremarkable US. Wants second opinion. -referred back to urology 3/5/25 * Assessment & Plan Note - Caren Mart - 01/02/2025 2:36 PM ESTAssociated Problem(s): Obstructive sleep apnea of adult -CPAP machine was taken by company for fixing and never returned. Recent sleep study without significant ANGEL. * Assessment & Plan Note - Caren Mart - 01/02/2025 2:36 PM ESTAssociated Problem(s): Atrial fibrillation (CMS/HCC) Stabe IIIa -Hx atrial fibulation s/p catheter ablation in December 2011 undergoing pulmonary vein isolation usingcryoablation. Procedure went well and he had four-vein isolation at that time. -Since then he has had a few episodes of atrial fibrillation that lasted some time and self terminated. He went to the [facility] ER on 12/16/13 with chest discomfort and was found to be in afib. Cardioversion was offered by he declined. Case was discussed with patient services manager, Dr. Tirado, who recommended asp irin therapy and outpatient follow up. He left against medical advise. He was prescribed [id number] and flecainide daily but could not tolerate the side effects. He was also prescribed aspirin 325 but is not taking it daily. -At visit 04/2014 he told me he would not take medication but agreed to low dose metoprolol of 25mg which he is tolerated well -He walked into cardiology 01/2019 with palpitations and was found to be in a fib. Dr. Winter recommended flecainide, pill in pocket approach and continue metoprolol. -Followed by cardiology, seen 10/19/[address] Winter. Note states he had one prolonged episode of very brief flutters. His CHADVASc score suggests no need for anticoagulation, They recommend continue metoprolol 100mg daily for rate control hypertension. -He is tolerating metoprolol ER 100mg daily well. -Was seen in ED after syncopal episode 03/2024 had been kayaking all day and had a few glasses of wine. In ER K was 3.3 Mg 1.9 did not convert following 200 then 100 of flecainide. He was discharted in A fib with rate control. -Started on Eliquis but pt did not take it as he started feeling better. -Seen by [facility] Cadence Mars NP 11/21/24, continue with flecanied pill in pocket, daily metoprolol, [id number] 1 for hypertension, no indication for continued anticoagulant therapy , echo was ordered. Follow up 6 months recommended * Assessment & Plan Note - Caren Mart - 01/02/2025 2:36 PM ESTAssociated Problem(s): Essential hypertension -Blood pressure is at goal -Continue lifestyle modifications -Continue Metoprolol ER 100mg daily * Assessment & Plan Note - Caren Mart - 01/02/2025 2:36 PM ESTAssociated Problem(s): Exercise counseling Exercise Recommendations: At least 150 minutes of moderate-intensity physical activity per week, or an equivalent combinationof moderate- and vigorous-intensity activity * Assessment & Plan Note - Caren Mart - 01/02/2025 2:36 PM ESTAssociated Problem(s): Dietary counseling Dietary Recommendations: Fruits, vegetables, whole grains, protein foods, and fat-free or low-fat dairy products are healthychoices. Eat different types of protein foods in your diet. This can include seafood, lean meats, poultry, beans, peas, lentils, nuts, seeds, soy products, and eggs. Limit foods and beverages higher in added sugars, saturated fat, and sodium. * Assessment & Plan Note - Caren Mart - 01/02/2025 2:35 PM ESTAssociated Problem(s): Class 1 obesity due to excess calories with serious comorbidity and body mass index (BMI) of 32.0 to 32.9 in adult Discussed weight, diet, exercise with patient in relation to health conditions. Used motivational interviewing to illicit change talk and established initial goals with patient. documented in this encounter Plan of Treatment Upcoming Encounters Date Type Department Care Team (Late st Contact Info) Description 02/04/2025 11:15 AM EDT Office Visit [facility] [address] [place], [place] [phone] Traci Ruiz MD [address] [place] [address] Scheduled Orders Name Type Priority Associated Diagnoses Orde r Schedule Testosterone, Total, males (Adult), IA Lab Routine Essential hypertension Expected: 01/02/2025, Expires: 01/02/2026 Scheduled Referrals Name Type Priority Associated Diagnoses Orde r Schedule Referral to Urology Outpatient Referral Routine Pain in right testicle Expected: 01/02/2025 (Approximate), Expires: 01/02/2026 documented as of this encounter Goals Goal Patient Goal Type Associated Problems Recent Progress Patient-Stated? Author Blood Pressure < 140/90 Blood Pressure 124/80( 025 11:36 AM EST) No Luisa Sim, SabihaD documented as of this encounter Procedures Procedure Name Priority Date/Time Associated Diagnosis Comments CBC WITH AUTO DIFFERENTIAL Routine 01/10/2025 8:50 AM EDT Essential hypertension HEPATIC FUNCTION PANEL Routine 01/10/2025 8:50 AM EDT Essential hypertension LIPID PANEL, STANDARD Routine 01/10/2025 8:50 AM EDT Essential hypertension documented in this encounter Results * Lipid Panel, Standard (01/10/2025 8:50 AM EDT) Triglycerides 57 <150 mg/dL [facility] Comment:Desirable Triglyceri de: less than 150 mg/dLBorderline High Triglyceride 150-199 mg/dLHigh Triglyceride: 200-499 mg/dLVery High Triglyceride: greater than or equal to 5OO mg/dL Cholesterol 145 <200 mg/dL [facility] Comment:Desirable Cholestero l: less than 200 mg/dLBorderline High Cholesterol: 200-239 mg/dLHigh Cholesterol: greater than 239 mg/dL LDL Cholesterol Calculated 92 <100 mg/dL [facility] Comment:Desirable LDL: less than 100 mg/dLNear Optimal/Above Optimal LDL: 110- 129 mg/dLBorderline High LDL: 130-159 mg/dLHigh LDL: 160-189 mg/dLVery High LDL: greater than or equal to 190 mg/dL HDL Cholesterol 42 >40 mg/dL [facility] Comment:Desirable HDL: great er than 40 mg/dL Note: This HDL assay may give artificially low results in patients with liver disease. Blood Venous blood specimen / Unknown 01/10/2025 8:50 AM EDT 01/10/2025 11:38 AM EDT Traci Ruiz MD LAB BLOOD ORDERABLES Final Result [facility] [address] [place] [phone] * Hepatic Function Panel (01/10/2025 8:50 AM EDT) Bilirubin, Total 0.6 0.0 - 1.0 mg/dL [facility] Bilirubin, Direct 0.2 0.0 - 0.5 mg/dL [facility] Aspartate Amino Transferase 20 5 - 37 U/L [facility] Alanine Aminotransferase 13 0 - 40 U/L [facility] Total Protein 7.1 6.5 - 8.0 g/dL [facility] Albumin Level 3.8 3.5 - 5.0 g/dL [facility] Alkaline Phosphatase 64 39 - 117 U/L [facility] Blood Venous blood specimen / Unknown 01/10/2025 8:50 AM EDT 01/10/2025 11:38 AM EDT Traci Ruiz MD LAB BLOOD ORDERABLES Final Result [facility] [address] [place] [address] [phone] * CBC auto differential (01/10/2025 8:50 AM EDT) White Blood Count 4.9 4.8 - 10.8 X10*3/uL [facility] Red Blood Count 5.03 4.60 - 5.80 X10*6/uL [facility] Hemoglobin 14.0 14.0 - 18.0 g/dl [facility] Hematocrit 43.7 42.0 - 52.0 % [facility] Mean Corpuscular Volume 86.9 80.0 - 98.0 fL [facility] Mean Corpuscular Hemoglobin 27.8 27.0 - 33.0 pg [facility] Mean Corpuscular HGB Conc 32.0 31.0 - 36.0 g/dl [facility] Red Cell Distribution Width 12.6 11.0 - 16.0 % [facility] Platelet Count 233 160 - 400 X10*3/uL [facility] Mean Platelet Volume 11.3 9.4 - 12.4 fL [facility] Neutrophils Percent Auto 68.1 45 - 73 % [facility] Imm Gran Pct Auto 0.2 0.0 - 0.4 % [facility] Lymphocytes Percent Auto 23.7 20 - 40 % [facility] Monocytes Percent Auto 7.0 2 - 11 % [facility] Eosinophils Percent Auto 0.8 0 - 4 % [facility] Basophils Percent Auto 0.2 0 - 2 % [facility] NRBC Pct Auto 0.0 0.0 - 0.2 /100WBC [facility] Neutrophils Absolute Auto 3.3 2.0 - 8.3 x10*3/uL [facility] Imm Gran Abs Auto 0.01 0.00 - 0.03 X10*3/uL [facility] Lymphocytes Absolute Auto 1.2 1.2 - 4.9 X10*3/uL [facility] Monocytes Absolute Auto 0.3 0.1 - 1.2 X10*3/uL [facility] Eosinophils Absolute Auto 0.0 0.0 - 0.4 X10*3/uL [facility] Basophils Absolute Auto 0.0 0.0 - 0.2 X10*3/uL [facility] NRBC Abs Auto 0.000 0.0 - 0.012 X10*3/uL [facility] Blood Venous blood specimen / Unknown 01/10/2025 8:50 AM EDT 01/10/2025 11:35 AM EDT Traci Ruiz MD LAB BLOOD ORDERABLES Final Result [facility] [address] [place] [phone] documented in this encounter Visit Diagnoses Diagnosis Essential hypertension- Primary Unspecified essential hypertension Obstructive sleep apnea of adult Paroxysmal atrial fibrillation (CMS/HCC) Atrial fibrillation Pain in right testicle Unspecified disorder of male genital organs Class 1 obesity due to excess calories with serious comorbidity and body mass index (BMI) of 32.0 to 32.9 in adult Dietary counseling Dietary surveillance and counseling Exercise counseling Encounter for immunization Other specified counseling documented in this encounter Additional Health Concerns Assessment Noted Time PHQ-9 Depression Total Score: 0 04/30/20 24 8:55 AM EDT documented as of this encounter Care Teams Shearer Screen Measurer And Trimmer Relationship Specialty Start Date End Date Traci Ruiz MD [address] [place] [phone] PCP - General Family Medicine 04/04/13 Luisa Lee PharmD [address] [place] [address] Pharmacist Internal Medicine 02/01/23 Cadence Mars NP [facility] [address] [facility] [address] [place] [address] Cardiology 11/22/24 Dr. Twyla Mireles MD Psychiatry 01/02/25 documented as of this encounter
--- OUTSIDE RECORDS SUMMARY | 2025-01-14 13:12 | XMS_ITS | Clinical Summary ---
Author Organization [employer] Address [address] [facility] [address] [place] [address] Care Team Providers Care Audio Technician Name Role Phone Traci Ruiz MD Primary Care Provider [phone]- [phone] Luisa Lee PharmD Unavailable [phone]- [phone] Allergies Active Allergy Reactions Criticality Noted Date Comments Dabigatran Etexilate Mesylate 2012 Penicillins 06/21/2013 Medications clonazePAM (KlonoPIN) 0.5 MG tabletIndicatio ns:Anxiety state Take 0.5 mg by mouth 2 times daily. Prn with psychiatry. Active flecainide (Tambocor) 100 MG tabletIndicatio ns:Paroxysmal atrial fibrillation (CMS/HCC) Take by mouth. Take 2 tab po daily prn a fib, if you do not convert after 20 min, take another tab. Prescribed by cardiology at [facility] Active metoprolol succinate XL (Toprol-XL) 100 MG 24 hr tabletIndicatio ns:Essential hypertension TAKE 1 TABLET BY MOUTH IN THE MORNING DO NOT CRUSH OR CHEW 90 tablet 3 07/24/20 24 Active albuterol (Ventolin HFA) 108 (90 Base) MCG/ACT inhalerIndicati ons:Mild intermittent asthma without complication INHALE 2 PUFFS BY MOUTH 4 X EVERY DAY NEEDED FOR SHORTNESS OF BREATH 18 g 1 12/19/19 25 Active albuterol (Ventolin HFA) 108 (90 Base) MCG/ACT inhalerIndicati ons:Mild intermittent asthma without complication INHALE 2 PUFFS BY MOUTH 4 X EVERY DAY NEEDED FOR SHORTNESS OF BREATH 18 g 1 02/23/20 24 025 Discontinued(R eorder (will not trigger notification to Pharmacy)) acetaminophen (Tylenol) 500 MG tablet Take 2 tablets (1,000 mg) by mouth every 6 (six) hours if needed for moderate pain or fever. 40 tablet 12/19/19 25 025 Discontinued(M ed list cleanup (will not trigger notification to Pharmacy)) ibuprofen 800 MG tablet Take 1 tablet (800 mg) by mouth every 8 (eight) hours if needed for moderate pain, fever or headaches for up to 10 days. 20 tablet 12/19/19 25 025 Discontinued(M ed list cleanup (will not trigger notification to Pharmacy)) Spacer/Aero-Hol ding Chambers (OptiChamber Yana) misc 1 each every 4 (four) hours if needed (asthma). 1 each 12/19/19 25 025 Discontinued(M ed list cleanup (will not trigger notification to Pharmacy)) Active Problems Patient Care Coordination No te Formatting of this note migh t be different from the original. Patient followed in [facility] HTN clinic with Luisa Lee Problem Noted Date Diagnosed Date Exercise counseling 01/02/2025 Assessment & Plan (01/02/2025 2:36 PM EST): Exercise Recommendations: At least 150 minutes of moderate-intensity physical activity per week, or an equivalent combination of moderate- and vigorous-intensity activity Dietary counseling 01/02/2025 Assessment & Plan (01/02/2025 2:36 PM EST): Dietary Recommendations: Fruits, vegetables, whole grains, protein foods, and fat-free or low-fat dairy products are healthy choices. Eat different types of protein foods in your diet. This can include seafood, lean meats, poultry, beans, peas, lentils, nuts, seeds, soy products, and eggs. Limit foods and beverages higher in added sugars, saturated fat, and sodium. Pain in right testicle 01/02/2025 Overview (01/02/2025): Ongoing, intermittent right-sided testicular pain since . -Saw urology in 2019 with unremarkable US. Wants second opinion. -referred back to urology 01/02/25 Assessment & Plan (01/02/2025 2:37 PM EST): Ongoing, intermittent right-sided testicular pain since . -Saw urology in 2019 with unremarkable US. Wants second opinion. -referred back to urology 01/02/25 Other specified counseling 01/02/2025 Overview (01/02/2025): Taking testosterone non-prescribed on the street. Understands risk and counseled on precautions. Using clean needles. Will check labs 01/02/25 Assessment & Plan (01/02/2025 2:38 PM EST): Taking testosterone non-prescribed on the street. Understands risk and counseled on precautions. Using clean needles. Will check labs 01/02/25 Encounter for immunization 04/30/2024 Family planning 02/27/2024 Overview (02/27/2024): -s/p consultation for vasectomy with NATANAEL Connor 02/24/24, plan for vasectomy in the near future Preventative health care 05/16/2023 Overview (04/30/2024): -next physical exam due after 05/30/24 -eye care facilitated by [employer] in [facility] -health care proxy filed 04/30/24 Assessment & Plan (04/30/2024 8:58 AM EDT): -next physical exam due after 05/30/24 -eye care facilitated by [employer] in [facility] -health care proxy filed 04/30/24 Assessment & Plan (05/30/2023 9:19 AM EDT): -next physical exam due after 05/30/24. -eye care facilitated by [employer] in [facility] is Routine screening for STI (sexually transmitted infection) 11/04/2022 Fibromyalgia 02/04/2022 Overview (11/04/2022): -no improvement with gabapentin or Lyrica Assessment & Plan (04/30/2024 8:18 AM EDT): -no improvement with gabapentin or Lyrica Assessment & Plan (05/30/2023 8:59 AM EDT): -no improvement with gabapentin or Lyrica Assessment & Plan (11/04/2022 10:48 AM EST): -no improvement with gabapentin or Lyrica Obstructive sleep apnea of adult 10/29/2015 Overview (12/05/2023): -CPAP machine was taken by company for fixing and never returned. Recent sleep study without significant ANGEL. Assessment & Plan (01/02/2025 2:36 PM EST): -CPAP machine was taken by company for fixing and never returned. Recent sleep study without significant ANGEL. Assessment & Plan (04/30/2024 8:18 AM EDT): -CPAP machine was taken by company for fixing and never returned. Recent sleep study without significant ANGEL. Assessment & Plan (05/30/2023 8:59 AM EDT): -CPAP machine was taken by [employer] for fixing and never returned. Recent sleep study without significant ANGEL. Assessment & Plan (11/04/2022 10:49 AM EST): -CPAP machine was taken by [employer] for fixing and never returned. Recent sleep study without significant ANGEL. Atrial fibrillation 01/24/2014 Overview (01/02/2025): Stabe IIIa -Hx atrial fibulation s/p catheter ablation in December 2011 undergoing pulmonary vein isolation using cryoablation. Procedure went well and he had four-vein isolation at that time. -Since then he has had a few episodes of atrial fibrillation that lasted some time and self terminated. He went to the [facility] ER on 12/16/13 with chest discomfort and was found to be in afib. Cardioversion was offered by he declined. Case was discussed with gearman, Dr. Tirado, who recommended aspirin therapy and outpatient follow up. He left against medical advise. He was prescribed metoprolol 100mg and flecainide daily but could not tolerate [...] as he started feeling better. -Seen by [facility] Cadence Mars NP 11/21/24, continue with flecanied pill in pocket, daily metoprolol, [id number] 1 for hypertension, no indication for continued anticoagulant therapy , echo was ordered. Follow up 6 months recommended Assessment & Plan (01/02/2025 2:36 PM EST): Stabe IIIa -Hx atrial fibulation s/p catheter ablation in December 2011 undergoing pulmonary vein isolation using cryoablation. Procedure went well and he had four-vein isolation at that time. -Since then he has had a few episodes of atrial fibrillation that lasted some time and self terminated. He went to the [facility] ER on 12/16/13 with chest discomfort and was found to be in afib. Cardioversion was offered by he declined. Case was discussed with gearman, Dr. Tirado, who recommended aspirin therapy and outpatient follow up. He left against medical advise. He was prescribed metoprolol 100mg and flecainide daily but could not tolerate [...] as he started feeling better. -Seen by [facility] Cadence Mars NP 11/21/24, continue with flecanied pill in pocket, daily metoprolol, [id number] 1 for hypertension, no indication for continued anticoagulant therapy , echo was ordered. Follow up 6 months recommended Assessment & Plan (04/30/2024 9:04 AM EDT): Hx atrial fibulation s/p catheter ablation in December 2011 undergoing pulmonary vein isolation using cryoablation. Procedure went well and he had four-vein isolation at that time. -Since then he has had a few episodes of atrial fibrillation that lasted some time and self terminated. He went to the [facility] ER on 12/16/13 with chest discomfort and was found to be in afib. Cardioversion was offered by he declined. Case was discussed with gearman, Dr. Tirado, who recommended aspirin therapy and outpatient follow up. He left against medical advise. He was prescribed metoprolol 100mg and flecainide daily but could not tolerate [...] approach and continue metoprolol. -Followed by cardiology, last seen 10/19/[address] Winter. Note states he had one prolonged episode of very brief flutters. His CHADVASc score suggests no need for anticoagulation, They recommend continue metoprolol 100mg daily for rate control hypertension. -He is tolerating metoprolol ER 100mg daily well. -Was seen in ED a few weeks ago after syncopal episode -Started on Eliquis but pt did not take it as he started feeling better. -Has appt with gearman next months, will f/u and request ED notes 04/30/24 Assessment & Plan (05/30/2023 9:31 AM EDT): Hx atrial fibulation s/p catheter ablation in December 2011 undergoing pulmonary vein isolation using cryoablation. Procedure went well and he had four-vein isolation at that time. -Since then he has had a few episodes of atrial fibrillation that lasted some time and self terminated. He went to the [facility] ER on 12/16/13 with chest discomfort and was found to be in afib. Cardioversion was offered by he declined. Case was discussed with gearman, Dr. Tirado, who recommended aspirin therapy and outpatient follow up. He left against medical advise. He was prescribed metoprolol 100mg and flecainide daily but could not tolerate the side effects. He was also prescribed aspirin 325 but is not taking it daily. -At visit 04/2014 he told me he would not take medication but agreed to low dose metoprolol of 25mg which he is tolerating well -He walked into cardiology 01/2019 with palpitations and was found to be in a fib. Dr. Winter recommended flecainide, pill in pocket approach and continue metoprolol. Followed by cardiology, last seen 10/19/[address] Winter. Note states he had one prolonged episode of very brief flutters. His CHADVASc score suggests no need for anticoagulation, They recommend continue metoprolol 100mg daily for rate control hypertension. He is tolerating metoprolol ER 100mg daily well. Dyslipidemia 06/27/2012 Overview (01/02/2025): Lab Results Component Value Date CHOLESTEROL 190 11/08/2022 LDLCHOL 129 (H) 11/08/2022 LDLCHOL 138 (H) 01/27/2022 TRIG 57 05/10/2024 TRIG 143 11/08/2022 HDLCHOL 35 (L) 11/08/2022 CHOLHDLRAT 5.4 (H) 11/08/2022 -continue lifestyle modifications Assessment & Plan (04/30/2024 8:19 AM EDT): Lab Results Component Value Date CHOLESTEROL 190 11/08/2022 LDLCHOL 129 (H) 11/08/2022 LDLCHOL 138 (H) 01/27/2022 TRIG 143 11/08/2022 HDLCHOL 35 (L) 11/08/2022 CHOLHDLRAT 5.4 (H) 11/08/2022 -continue lifestyle modifications Assessment & Plan (05/30/2023 9:31 AM EDT): Lab Results Component Value Date CHOLESTEROL 190 11/08/2022 LDLCHOL 129 (H) 11/08/2022 LDLCHOL 138 (H) 01/27/2022 TRIG 143 11/08/2022 HDLCHOL 35 (L) 11/08/2022 CHOLHDLRAT 5.4 (H) 11/08/2022 -continue lifestyle modifications Anxiety state 04/13/2012 Overview (11/26/2023): Followed by therapist and psychiatrist Dr. Twyla Mireles. Gastroesophageal reflux disease 03/20/2012 Class 1 obesity due to exces s calories with serious comorbidity and body mass index (BMI) of 32.0 to 32.9 in adult 03/20/2012 Assessment & Plan (01/02/2025 2:35 PM EST): Discussed weight, diet, exercise with patient in relation to health conditions. Used motivational interviewing to illicit change talk and established initial goals with patient. Degeneration of lumbosacral intervertebral disc 09/20/2011 Overview (04/30/2024): Patient followed by orthopedics, he has not improved on gabbapentin or lyrica. Amitriptyline started 12/2021 and pt self d/c. s/ MRI He does not want any opiates, which I agree with given the chronic nature of his pain. He did not have improvement with Tylenol, ibuprofen, muscle relaxers, lidocaine patches or gabapentin or Lyrica He had injection with orthopedics 09/2021 which cdid help somewhat. On 04/08/22 numbness in his arms, tried many medications, seen pain managment Assessment & Plan (04/30/2024 8:18 AM EDT): Patient followed by orthopedics, he has not improved on gabbapentin or lyrica. Amitriptyline started 12/2021 and pt self d/c. s/ MRI He does not want any opiates, which I agree with given the chronic nature of his pain. He did not have improvement with Tylenol, ibuprofen, muscle relaxers, lidocaine patches or gabapentin or Lyrica He had injection with orthopedics 09/2021 which cdid help somewhat. On 04/08/22 numbness in his arms, tried many medications, seen pain managment Assessment & Plan (05/30/2023 8:58 AM EDT): Patient followed by orthopedics, he has not improved on gabbapentin or lyrica. Amitriptyline started 12/2021 and pt self d/c. s/ MRI He does not want any opiates, which I agree with given the chronic nature of his pain. He did not have improvement with Tylenol, ibuprofen, muscle relaxers, lidocaine patches or gabapentin or Lyrica He had injection with orthopedics 09/2021 which cdid help somewhat. Now reporting 04/08/22 numbness in his arms, tried many medications, seen pain managment Essential hypertension 03/20/2008 Overview (01/02/2025): -Blood pressure is at goal -Continue lifestyle modifications -Continue Metoprolol ER 100mg daily Assessment & Plan (01/02/2025 2:36 PM EST): -Blood pressure is at goal -Continue lifestyle modifications -Continue Metoprolol ER 100mg daily Assessment & Plan (04/30/2024 9:08 AM EDT): -Blood pressure is at goal -Continue lifestyle modifications -Continue Metoprolol ER 100mg daily Assessment & Plan (05/30/2023 8:58 AM EDT): -Blood pressure is at goal -Continue lifestyle modifications -Continue current medications Resolved Problems Problem Noted Date Diagnosed Date Resolved Date Left shoulder pain 01/24/2023 Assessment & Plan (01/24/2023 11:51 AM EDT): Requested muscle relaxer 01/24/23. Dizzy spells 11/04/2022 05/30/2023 Overview (01/24/2023): Resolved. On 11/04/2022 thought dizziness was possibly due to medication and we recommended to recheck BP when symptimatic. Labs on 11/08/2022 were normal, no aniemia, A1c 5.3%. Assessment & Plan (05/30/2023 8:58 AM EDT): Resolved. On 11/04/2022 thought dizziness was possibly due to medication and we recommended to recheck BP when symptimatic. Labs on 11/08/2022 were normal, no aniemia, A1c 5.3%. Assessment & Plan (01/24/2023 11:50 AM EDT): Resolved. On 11/04/2022 thought dizziness was possibly due to medication and we recommended to recheck BP when symptimatic. Labs on 11/08/2022 were normal, no aniemia, A1c 5.3%. Assessment & Plan (11/04/2022 1:18 PM EST): -reported 11/04/2021 present for months. Does not appear to be BPV. Possibly due to meds. Advise check blood pressure when symptomatic. Labs ordered. Pain in lower limb 03/07/2013 Angel Luis hematuria 08/16/2012 05/30/2023 Encounters Date Type Department Care Team Description 01/03/2025 Telephone [facility] [address] [place] [id number] Traci Ruiz MD Referral 01/03/2025 Orders Only [facility] [address] [address] Traci Ruiz MD Pain in right testicle (Primary Dx) 01/02/2025 11:30 AM EST Office Visit [facility] [address] [place] [phone] Traci Ruiz MD Essential hypertension (Primary Dx); Obstructive sleep apnea of adult; Paroxysmal atrial fibrillation (CMS/HCC); Pain in right testicle; Class 1 obesity due to excess calories with serious comorbidity and body mass index (BMI) of 32.0 to 32.9 in adult; Dietary counseling; Exercise counseling; Encounter for immunization; Other specified counseling 01/02/2025 Travel 12/19/2024 9:00 AM EST Office Visit [facility] [address] [address] Toney Garcia MD Influenza B (Primary Dx); Essential hypertension; Mild intermittent asthma without complication 12/12/[address] [address] Traci Ruiz MD Appointment cancelation 12/10/[address] [address] Lucy Garner MA chartprep 11/06/2024 Orders Only GENERIC EXTERNAL DATA DEPARTMENT Provider, Generic External Data from Last 3 Months Immunizations Name Administration Dates Next Due Hep A, Adult 11/22/2012 Hep B, adult 11/23/2013,12/29/2012,11/22/2012 Influenza, IIV3, injectable 11/29/2014 Influenza, Split (incl. altaf fied surface antigen) 07/17/2012 Influenza, seasonal, injecta ble, preservative free 01/02/2025 MMR 11/23/2013,11/22/2012 Pneumococcal Conjugate PCV 20 04/30/2024 Pneumococcal Polysaccharide PPSV23 12/30/2009 TD (adult), 2 Lf tetanus tox oid, preservative free, adsorbed 08/31/2006 Tdap 01/24/2023,11/22/2012 Varicella 11/23/2013 Family History Medical History Relation Name Comments Cancer Mother's Brother Diabetes Mother's Brother Relation Name Status Comments Mother's Brother Social History Tobacco Use Types Packs/Day Years Used Date Smoking Tobacco: Never Passive Smoke Exposure: Past Smokeless Tobacco: Never Tobacco Cessation:Counseling Given: Not Answered Alcohol Use Standard Drinks/Week Comments Never 0 [...] Orientation Straight 08/30/2022 10 :17 AM EDT Last Filed Vital Signs Vital Sign Reading [...] Mass Index 32.13 01/02/2025 11:36 AM EST Plan of Treatment Upcoming Encounters Date Type Department Care Team (Late st Contact Info) Description 02/04/2025 11:15 AM EDT Office Visit [facility] [address], [place] [phone] Traci Ruiz MD [address] [place] [address] Health Maintenance Due Date Last Done Comments Family Planning (PISQ) 1999 Depression Screening 04/30/2025 04/30/2024, 04/30/20 24 SDOH Screening 04/30/2025 04/30/2024 Tobacco Screening 12/19/2025 12/19/2024 Alcohol/Substance Use Screening 01/02/2026 01/02/2025 COVID-19 Vaccine ( season) 2026 03/25/2021, 02/25/2021 Postponed from 07/01/2024 (Patient Refused) Lipid Panel 01/10/2030 01/10/2025, 0710/2023, 11/08/2022, Additional history exists DTaP/Tdap/Td Vaccines (3 - Td or Tdap) 01/24/2033 01/24/2023, 11/22/2012, 08/31/2006 Zoster Vaccines (1 of 2) 2034 RSV Patients and Patients Aged 60 years or older (1 - 1-dose 75+ series) 2059 Hepatitis A Vaccines Aged Out 11/22/2012 No long er eligible based on patient's age to complete this topic Hepatitis B Vaccines Completed 11/23/2013, 12/29/2012, 11/22/2012 Hepatitis C Screening Discontinued 12/08/2023, 023 Pneumococcal Vaccine: Pediatrics (0 to 5 Years) and At-Risk Patients (6 to 49) Years) Completed 04/30/2024, 12/30/2009 HIV Screening Completed 05/10/2024, 05/2024, 11/08/2022 Influenza Vaccine Completed 01/02/2025, , 07/17/2012 HIB Vaccines Aged Out No longer eligi ble based on patient's age to complete this topic HPV Vaccines Aged Out No longer eligi ble based on patient's age to complete this topic IPV Vaccines Aged Out No longer eligi ble based on patient's age to complete this topic Meningococcal Vaccine Aged Out No scott kaylynn eligible based on patient's age to complete this topic RSV under 20 months Aged Out No longe r eligible based on patient's age to complete this topic Rotavirus Vaccines Aged Out No longer eligible based on patient's age to complete this topic Goals Goal Patient Goal Type Associated Problems Recent Progress Patient-Stated? Author Blood Pressure < 140/90 Blood Pressure 124/80( 025 11:36 AM EST) Luisa Butcher PharmD Procedures Procedure Name Priority Date/Time Associated Diagnosis Comments LIPID PANEL, STANDARD Routine 01/10/2025 8:50 AM EDT Essential hypertension HEPATIC FUNCTION PANEL Routine 01/10/2025 8:50 AM EDT Essential hypertension CBC WITH AUTO DIFFERENTIAL Routine 01/10/2025 8:50 AM EDT Essential hypertension POCT INFLUENZA B (ID NOW RAPID MOLECULAR) Routine 12/19/2024 9:03 AM EST Influenza B POCT INFLUENZA A (ID NOW RAPID MOLECULAR) Routine 12/19/2024 9:03 AM EST Influenza B POCT RAPID COVID ANTIGEN Routine 12/19/2024 9:03 AM EST Influenza B URINALYSIS WITH REFLEX MICROSCOPIC Routine 11/06/2024 8:24 PM EST HIGH SENSITIVITY TROPONIN I Routine 11/06/2024 8:24 PM EST LIPASE Routine 11/06/2024 8:24 PM EST COMPREHENSIVE METABOLIC PANEL Routine 11/06/2024 8:24 PM EST CBC WITH AUTO DIFFERENTIAL Routine 11/06/2024 8:24 PM EST SARS COV2/INFLUENZA A/B AND RSV RNA QL NAAT Routine 11/06/2024 8:24 PM EST STREP A NUCLEIC ACID Routine 11/06/2024 8:24 PM EST HIV 1/2 ANTIGEN/ANTIBODY, FOURTH GENERATION W/RFL Routine 05/10/2024 8:40 AM EDT Routine screening for STI (sexually transmitted infection) HEPATITIS C AB W/REFL TO HCV RNA, QN, PCR Routine 12/08/2023 11:43 AM EST Routine screening for STI (sexually transmitted infection) from Last 3 Months or Most Recently Relevant to Health Maintenance Results * CBC auto differential (01/10/2025 8:50 AM EDT) Only the most recent of2 resultswithin the time period is included. White Blood Count 4.9 4.8 - 10.8 X10*3/uL [facility] Red Blood Count 5.03 4.60 - 5.80 X10*6/uL [facility] Hemoglobin 14.0 14.0 - 18.0 g/dl [facility] Hematocrit 43.7 42.0 - 52.0 % [facility] Mean Corpuscular Volume 86.9 80.0 - 98.0 fL [facility] Mean Corpuscular Hemoglobin 27.8 27.0 - 33.0 pg [facility] Mean Corpuscular HGB Conc 32.0 31.0 - 36.0 g/dl [facility] Red Cell Distribution Width 12.6 11.0 - 16.0 % [facility] Platelet Count 233 160 - 400 X10*3/uL [facility] Mean Platelet Volume 11.3 9.4 - 12.4 fL [facility] Neutrophils Percent Auto 68.1 45 - 73 % [facility] Imm Gran Pct Auto 0.2 0.0 - 0.4 % [facility] Lymphocytes Percent Auto 23.7 20 - 40 % [facility] Monocytes Percent Auto 7.0 2 - 11 % [facility] Eosinophils Percent Auto 0.8 0 - 4 % [facility] Basophils Percent Auto 0.2 0 - 2 % [facility] NRBC Pct Auto 0.0 0.0 - 0.2 /100WBC [facility] Neutrophils Absolute Auto 3.3 2.0 - 8.3 x10*3/uL [facility] Imm Gran Abs Auto 0.01 0.00 - 0.03 X10*3/uL [facility] Lymphocytes Absolute Auto 1.2 1.2 - 4.9 X10*3/uL [facility] Monocytes Absolute Auto 0.3 0.1 - 1.2 X10*3/uL [facility] Eosinophils Absolute Auto 0.0 0.0 - 0.4 X10*3/uL [facility] Basophils Absolute Auto 0.0 0.0 - 0.2 X10*3/uL [facility] NRBC Abs Auto 0.000 0.0 - 0.012 X10*3/uL [facility] Blood Venous blood specimen / Unknown 01/10/2025 8:50 AM EDT 01/10/2025 11:35 AM EDT us Traci Ruiz MD LAB BLOOD ORDERABLES Final Result [facility] [address] [place] [phone] * Hepatic Function Panel (01/10/2025 8:50 AM EDT) Bilirubin, Total 0.6 0.0 - 1.0 mg/dL [facility] Bilirubin, Direct 0.2 0.0 - 0.5 mg/dL [facility] Aspartate Amino Transferase 20 5 - 37 U/L [facility] Alanine Aminotransferase 13 0 - 40 U/L [facility] Total Protein 7.1 6.5 - 8.0 g/dL [facility] Albumin Level 3.8 3.5 - 5.0 g/dL [facility] Alkaline Phosphatase 64 39 - 117 U/L [facility] Blood Venous blood specimen / Unknown 01/10/2025 8:50 AM EDT 01/10/2025 11:38 AM EDT us Traci Ruiz MD LAB BLOOD ORDERABLES Final Result [facility] [address] [place] [phone] * Lipid Panel, Standard (01/10/2025 8:50 AM EDT) Pathologist [facility] Triglycerides 57 <150 mg/dL [facility] Comment:Desirable Triglyceri de: less than 150 mg/dLBorderline High Triglyceride 150-199 mg/dLHigh Triglyceride: 200-499 mg/dLVery High Triglyceride: greater than or equal to 5OO mg/dL Cholesterol 145 <200 mg/dL [facility] Comment:Desirable Cholestero l: less than 200 mg/dLBorderline High Cholesterol: 200-239 mg/dLHigh Cholesterol: greater than 239 mg/dL LDL Cholesterol Calculated 92 <100 mg/dL [facility] Comment:Desirable LDL: less than 100 mg/dLNear Optimal/Above Optimal LDL: 110- 129 mg/dLBorderline High LDL: 130-159 mg/dLHigh LDL: 160-189 mg/dLVery High LDL: greater than or equal to 190 mg/dL HDL Cholesterol 42 >40 mg/dL [facility] Comment:Desirable HDL: great er than 40 mg/dL Note: This HDL assay may give artificially low results in patients with liver disease. Blood Venous blood specimen / Unknown 01/10/2025 8:50 AM EDT 01/10/2025 11:38 AM EDT Traci Ruiz MD LAB BLOOD ORDERABLES Final Result Performing Organization Address [facility] de Phone Number [facility] [address] [place] [phone] * (ABNORMAL) Influenza B (ID NOW Rapid Molecular) (12/19/2024 9:03 AM EST) Pathologist [facility] Influenza B Positive( A) Negative, Indeterminate [facility] Swab 12/19/2024 9:03 AM EST Toney Garcia MD POINT OF CARE TEST ENTER/EDIT OR DERABLES Final Result Performing Organization Address [facility] de Phone Number [facility] [address] [place] [address] [phone] * Influenza A (ID NOW Rapid Molecular) (12/19/2024 9:03 AM EST) Pathologist [facility] Influenza A Negative Negative, Indeterminate [facility] Swab 12/19/2024 9:03 AM EST Toney Garcia MD POINT OF CARE TEST ENTER/EDIT OR DERABLES Final Result Performing Organization Address [facility] de Phone Number [facility] [address] [place] [address] [phone] * POCT Rapid COVID Ag (12/19/2024 9:03 AM EST) Rapid COVID Ag Negative [facility] Swab 12/19/2024 9:03 AM EST Toney Garcia MD POINT OF CARE TEST ENTER/EDIT OR DERABLES Final Result Performing Organization Address [facility] Co de Phone Number [facility] [address] [place] [phone] * Strep A Nucleic Acid (11/06/2024 8:24 PM EST) Pathologist [facility] IDNOW SERIAL# [id number] [facility] Strep A Nucleic Acid Negative Negative [facility] Comment:All test results mus t be correlated with clinical findings.This test has not been evaluated for monitoring treatment ofinfection.Additional follow-up testing using the culture method isrequired if the result is negative and clinical symptomspersist, or in the event of an acute rheumatic feveroutbreak. 11/06/2024 8:24 PM EST 11/06/2024 8:33 PM EST us Generic External Data Provider LAB MICROBIOLOGY - GENERAL ORDERABLES Final Result Performing Organization Address [facility] de Phone Number [facility] [address] [place] [address] [phone] * High Sensitivity Troponin I (11/06/2024 8:24 PM EST) [facility] TROPONIN I HIGH SENSITIVITY <2.7 <3.5 - 35.0 ng/L [facility] Comment:The [place] high sens itivity Troponin-I results should beused in conjunction with other diagnostic information suchas ECG, clinical observations and information, and patientsymptoms to aid in the diagnosis of [place]. 11/06/2024 8:24 PM EST 11/06/2024 8:33 PM EST us Generic External Data Provider LAB BLOOD ORDERAB LES Final Result Performing Organization Address [facility] de Phone Number [facility] [address] [place] [address] [phone] * SARS-CoV-2 RNA, Influenza A/B, and RSV RNA, Ql NAAT (11/06/2024 8:24 PM EST) Influenza A PCR NEGATIVE Negative [facility] Influenza B PCR NEGATIVE Negative [facility] Resp Syncy Virus RNA Qual PCR NEGATIVE Negative [facility] SARS COV2 PCR NEGATIVE Negative [facility] Comment:All test results mus t be correlated with clinical findings.Negative results do not preclude SARS-CoV2, influenza Avirus, influenza B virus and/or RSV infectionand should not be used as the sole basis for treatment orother patient management decisions. Negative results must becombined with clinical observations, patient history, andepidemiological information.This test has not been evaluated for monitoring treatment ofinfection.This test has been authorized by the FDA under an EmergencyUse Authorization (EUA) for use by authorized laboratories.Testing performed on the [employer] GeneXpert utilizingreal-time RT-PCR.All SARS CoV2 and positive influenza A/B results arereported to [facility]. 11/06/2024 8:24 PM EST 11/06/2024 8:33 PM EST Generic External Data Provider LAB MICROBIOLOGY - GENERAL ORDERABLES Final Result [facility] [address] [place] [address] [phone] * (ABNORMAL) Urinalysis w/reflex microscopic (11/06/2024 8:24 PM EST) Color Urine Yellow [facility] Appearance Urine Clear [facility] PH 6.5 5.0 - 9.0 [facility] Glucose Urine UA Negative Negative mg/dL [facility] Urine Blood Negative Negative [facility] Specific [place] - Urine >=1.030(H) 1.005 - 1.025 [facility] Urine Protein Negative Neg-Trace mg/dL [facility] Urine Ketones Trace Negative mg/dL [facility] Nitrite Urine Negative Negative [facility] Leukocyte Esterase Urine Negative Negative [facility] 11/06/2024 8:24 PM EST 11/06/2024 8:33 PM EST Narrative [facility] - 11/06/2024 10:01 PM EST Urine, Clean Catch us Generic External Data Provider LAB URINE ORDERAB LES Final Result Performing Organization Address City/[facility]/ZIP Co de Phone Number [facility] [address] [place] [phone] * Lipase (11/06/2024 8:24 PM EST) Lipase 19 8 - 78 U/L [facility] 11/06/2024 8:24 PM EST 11/06/2024 8:33 PM EST Generic External Data Provider LAB BLOOD ORDERAB LES Final Result Performing Organization Address [facility] Co de Phone Number [facility] [address] [place] [phone] * (ABNORMAL) Comprehensive Metabolic Panel (11/06/2024 8:24 PM EST) Pathologist [facility] Sodium 143 135 - 145 mmol/L [facility] Potassium 3.7 3.3 - 5.1 mmol/L [facility] Chloride 108 96 - 108 mmol/L [facility] Carbon Dioxide 27 22 - 29 mmol/L [facility] Anion Gap 12 12 - 20 [facility] Urea Nitrogen (BUN) 22(H) 9 - 16 mg/dL [facility] Creatinine, Serum 0.85 0.5 - 1.4 mg/dL [facility] Creatinine Clr Calc Pharmacy 139.6 [facility] Comment:eGFR (calculated fro m the MDRD study equation) and eCrCl(calculated from the Cockcroft-Gault equation) are based ondifferent parameters and may not yield comparable results.If eCrCl result is absurd, please check patient'sheight/weight. Estimated Glomerular Filt Rate >60 [facility] Comment:Chronic Kidney Disea se: Estimated GFR < 60 mL/min/[id number] Kidney Disease: Estimated GFR < 15 mL/min/1.73m2 Glucose 91 60 - 115 mg/dL [facility] Calcium 8.8 8.4 - 10.2 mg/dL [facility] Bilirubin, Total 0.8 0.0 - 1.0 mg/dL [facility] Aspartate Amino Transferase 21 5 - 37 U/L [facility] Alanine Aminotransferase 16 0 - 40 U/L [facility] Total Protein 7.1 6.5 - 8.0 g/dL [facility] Albumin Level 4.3 3.5 - 5.0 g/dL [facility] Alkaline Phosphatase 72 39 - 117 U/L [facility] 11/06/2024 8:24 PM EST 11/06/2024 8:33 PM EST us Generic External Data Provider LAB BLOOD ORDERAB LES Final Result [facility] [address] [place] [address] [phone] * HIV-1/2 Antigen and Antibodies, Fourth Generation, with Reflexes (05/10/2024 8:40 AM EDT) HIV AB/AG Nonreactive Nonreactive [facility] Comment:HIV-1 p24 Ag and/or HIV-1/HIV-2 Ab not detected.A test result that is nonreactive does not exclude thepossibility of exposure to or infection with HIV-1 and/orHIV-2. Nonreactive results in this assay for individualswith prior exposure to HIV-1 and/or HIV-2 may be due toantigen and antibody levels that are below the limit ofdetection of this assay.The [employer] HIV Ag/Ab Combo assay result andsupplemental assay results should be interpreted inconjunction with the patient's clinical presentation,history and other laboratory results. If the results areinconsistent with clinical evidence, additional testing issuggested to confirm the result. Blood Venous blood specimen / Unknown 05/10/2024 8:40 AM EDT 05/10/2024 11:33 AM EDT us Traci Ruiz MD LAB BLOOD ORDERABLES Final Result Performing Organization Address City/[facility]/ZIP Co de Phone Number [facility] [address] [place] [address] [phone] * Hepatitis C Antibody with Reflex to HCV, RNA, Quantitative, Real-Time PCR (12/08/2023 11:43 AM EST) Hepatitis C Antibody Nonreactive Nonreactive [facility] Comment:Antibodies to HCV no t detected; does not exclude early acuteHCV infection. Blood Venous blood specimen / Unknown 12/08/2023 11:43 AM EST 12/08/2023 1:12 PM EST us Ruth HIGGINBOTHAM LAB BLOOD ORDERABLES Final Resul t Performing Organization Address [facility] Co de Phone Number [facility] [address] [place] [address] [phone] from Last 3 Months or Most Recently Relevant to Health Maintenance Insurance [facility] Advance Directives Documents on File Type Date Recorded Patient First Aid Instructor Expl anation Advance Directives and Living Will 04/30/2024 Health Care Proxy 04/30/24 Care Teams Audio Technician Relationship Specialty Start Date End Date Chaffee, MD Traci [address] [place] [address] PCP - General Family Medicine 04/04/13 Luisa Lee, SabihaD [address] [place] [address] Pharmacist Internal Medicine 02/01/23 Cadence Mars NP [facility] [address] [phone] Cardiology 11/22/24 Dr. Twyla Mireles MD Psychiatry 01/02/25
--- OUTSIDE RECORDS SUMMARY | 2025-01-14 13:12 | XMS_ITS | Clinical Summary ---
Author Organization [facility] [employer] Address [address] [facility] [place], [place] [phone] Phone Care Team Providers Care Hydraulic Jack Adjuster Name Role Phone Traci Ruiz MD Primary Care Provider [phone] Allergies Active Allergy Reactions Criticality Noted Date Comments Dabigatran Etexilate Mesylate 06/21/2013 Other Other Medium 10/12/2010 Aspartame-[place] Blue-Ibuprofen H/o palpitations Penicillins Itching 06/16/2010 Other Reaction(s): Rash/Dermatitis Medications clonazePAM (KlonoPIN) 0.25 mg disintegrating tablet Take 0.25 mg by mouth every morning. Active flecainide (TAMBOCOR) 100 mg tablet Take 2 Tablets by mouth daily as needed (with persistent Atrial Fibrillation - 200 mg, if you do not convert after 30 minutes take an additional 100 mg, not to exceed 300 mg in a 24 hours period). Metoprolol needs to have been taken on the same day as the Flecainide. 05/16/20 24 Active metoprolol succinate (TOPROL-XL) 100 mg 24 hr tablet Take 100 mg by mouth daily. Active Active Problems Problem Noted Date Diagnosed Date Abdominal pain 05/10/2024 Fall 05/10/2024 SVT (supraventricular tachycardia) 05/10/2024 Syncope 05/10/2024 Chest pain 10/28/2020 Overview (09/25/2024): Chest pain Dizziness 10/28/2020 Overview (09/25/2024): Dizziness Dyslipidemia 10/28/2020 Overview (09/25/2024): Dyslipidemia Dyspnea 10/28/2020 Overview (09/25/2024): Dyspnea Edema 10/28/2020 Overview (09/25/2024): Edema Fatigue 10/28/2020 Overview (09/25/2024): Fatigue Palpitations 10/28/2020 Overview (09/25/2024): Palpitations Atrial fibrillation 10/28/2020 Overview (09/25/2024): Atrial fibrillation High cholesterol 09/16/2010 Anxiety disorder 06/16/2010 GERD (gastroesophageal reflux disease) 0 Overview (09/25/2024): The patient had EGD done by Dr. 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 No acute injuries. Headache 06/16/2010 Overview (09/25/2024): Recurrent ELAM with photophobia, nausea, visual scotomas HTN (hypertension) 06/16/2010 Morbid obesity 06/16/2010 ANGEL (obstructive sleep apnea) 06/16/2010 Paroxysmal atrial fibrillation 06/16/2010 Overview (09/25/2024): Follows with [facility]. Patient had normal Holter and stress test on 2009. Patient also had a normal ECHO 2006 Right ear pain 06/16/2010 Overview (09/25/2024): Associated with headaches Encounters Date Type Department Care Team Description 12/03/2024 Telephone [facility] [address] [facility] [address] [place] [phone] Cadence Mars NP Appointment (Sleep Study) 11/21/2024 9:40 AM EST Office Visit [facility] [address] [facility] [address] [place] [phone] Cadence Mars NP Paroxysmal atrial fibrillation (CMS/HCC) (Primary Dx); SOB (shortness of breath); Snoring from Last 3 Months Immunizations Name Administration Dates Next Due Pneumococcal polysaccharide 23 valent (Pneumovax 23) 2yo and older 12/30/2009 Td Tetanus diptheria (Tdvax) 7yo and older 08/31 Surgical History Surgery Date Site/Laterality Comments EYE SURGERY PROCEDURE: HISTORICAL EYE SURGERY Medical History Medical History Date Comments HTN (hypertension) DX:HTN (hyper tension) ANGEL (obstructive sleep apnea) DX :ANGEL (obstructive sleep apnea) Paroxysmal atrial fibrillation (CMS/HCC) DX:Paroxysmal atrial fibrillation (HCC) Anxiety DX:Anxiety GERD (gastroesophageal reflux disease) DX:GERD (gastroesophageal reflux disease) Obesity DX:Obesity Hypercholesteremia DX:Hyperchole steremia Family History Medical History Relation Name Comments Diabetes Uncle 1 Relation Name Status Comments Daughter 1 Alive Daughter 2 Alive Father Alive Mother Alive htn Sister 1 Alive Sister 2 Uncle 1 Uncle 2 Social History Tobacco Use Types Packs/Day Years Used Date Smoking Tobacco: Former Cigarettes Smokeless Tobacco: Never Alcohol Use Standard Drinks/Week Comments No 0 (1 standard drink = 0.6 oz pur e alcohol) Sex and Gender Information Value Date Recorded Sex Assigned at Not on file Legal Sex Male 2:54 AM EST Gender Identity Not on file Sexual Orientation Not on file Obstetrics History Last Filed Vital Signs Vital Sign Reading Time Taken Comments Blood Pressure 130/86 11/21/2024 9:33 AM EST Pulse 64 11/21/2024 9:33 AM EST Temperature - - Respiratory Rate - - Oxygen Saturation 97% 11/21/2024 9:33 AM EST Inhaled Oxygen Concentration - - Weight 102 kg (225 lb) 11/21/2024 9:33 AM EST Height 180.3 cm (5' 11 ) 11/21/2024 9:33 AM EST Body Mass Index 31.38 11/21/2024 9:33 AM EST Plan of Treatment Upcoming Encounters Date Type Department Care Team (Late st Contact Info) Description 05/13/2025 10:00 AM EDT Ancillary Procedure [facility] [address] [place] [address] Health Maintenance Due Date Last Done Comments Medicare Annual Wellness Visit 10/03/2022 Social Influencers of Health Screening 10/03/2022 COVID-19 Vaccine (3 - 2023-2 5 season) 2024 03/25/2021, 02/25/2021 Influenza Vaccine (#1) 2024 5, 07/17/2012 Depression Screening 04/30/2025 04/30/2024 Hypertension/CHF/CAD Annual BMP Blood Test 11/06/2025 11/06/2024, 05/10/2024 Cholesterol Screening (Lipid Panel) 05/10/2029 05/10/2024, 05/10/2024 DTaP,Tdap,and Td Vaccines (4 - Td or Tdap) 01/24/2033 01/24/2023, 11/22/2012, 08/31/2006 Hepatitis A Vaccines Aged Out 11/22/2012 No long er eligible based on patient's age to complete this topic Hepatitis B Vaccines Completed 11/23/2013, 12/29/2012, 11/22/2012 MMR Vaccines Aged Out 11/23/2013, 11/22/2012 No longer eligible based on patient's age to complete this topic Varicella Vaccines Aged Out 11/23/2013 No longer eligible based on patient's age to complete this topic Hepatitis C Screening Completed 12/08/2023 , 12/08/2023 Pneumococcal Vaccine: Pediatrics (0 to 5 Years) and At-Risk Patients (6 to 64 Years) Aged Out 04/30/2024, 12/30/2009 No longer eligible based on patient's age to complete this topic HIV Screening Completed 05/10/2024, 05/10/2024 HIB Vaccines Aged Out No longer eligi ble based on patient's age to complete this topic HPV Vaccines Aged Out No longer eligi ble based on patient's age to complete this topic IPV Vaccines Aged Out No longer eligi ble based on patient's age to complete this topic Meningococcal ACWY Vaccine Aged Out N o longer eligible based on patient's age to complete this topic Meningococcal B Vacine Aged Out No lo nger eligible based on patient's age to complete this topic RSV Immunization Patients Under 20 months Aged Out No longer eligible b ased on patient's age to complete this topic Procedures Procedure Name Priority Date/Time Associated Diagnosis Comments ECG 12-LEAD Routine 11/21/2024 10:08 AM EST Paroxysmal atrial fibrillation (CMS/HCC) HIV SCREENING Routine 05/10/2024 ANNUAL BMP BLOOD TEST Routine 05/10/2024 LIPID PANEL Routine 05/10/2024 HEPATITIS C SCREENING Routine 12/08/2023 from Last 3 Months or Most Recently Relevant to Health Maintenance Results * ECG 12 lead (11/21/2024 10:08 AM EST) Ventricular Rate ECG 64 BPM GEMUSE Atrial Rate 64 BPM GEMUSE P-R Interval 150 ms GEMUSE QRS Duration 90 ms GEMUSE Q-T Interval 378 ms GEMUSE QTc 389 ms GEMUSE P Wave [place] 67 degrees GEMUSE R [place] 55 degrees GEMUSE T [place] 26 degrees GEMUSE ECG Interpretation Normal sinus rhythm Normal ECG When compared with ECG of 12-FEB-2019 14:21, No significant change was found Confirmed by Ian GOODRICH JOHN ([id number]) on 11/25/2024 10:20:49 AM GEMUSE 11/21/2024 9:42 AM EST 11/25/2024 10:20 AM EST Miguel A Goodrich MD ECG ORDERABLES Edited Result - Final GEMUSE * Annual BMP Blood Test (05/10/2024) Annual BMP Blood Test abstracted Historical Provider HEALTH MAINTENANCE Final Result * HIV Screening (05/10/2024) HIV Screening abstracted Historical Provider HEALTH MAINTENANCE Final Result * Lipid panel (05/10/2024) Triglycerides 0 mg/dL Comment:no interpretation, a bstracted Cholesterol 0 mg/dL Comment:no interpretation, a bstracted HDL 0 mg/dL Comment:no interpretation, a bstracted LDL Cholesterol 0 mg/dL Comment:no interpretation, a bstracted Blood Venous blood specimen / Unknown Historical Provider LAB BLOOD ORDERABLES Shannan l Result * Hepatitis C Screening (12/08/2023) Hepatitis C Screening abstracted Historical Provider HEALTH MAINTENANCE Final Result from Last 3 Months or Most Recently Relevant to Health Maintenance Insurance [employer] MEDICARE Member Subscriber Plan / Payer (Ef fective 2021-Present) Name:Quique Stoner Relation to Subscriber:Self Name:Quique Stoner Payer ID:[id number] Group ID:[id number] Type:Not on file Address: [place] [address] [address] [id number] Care Teams Hydraulic Jack Adjuster Relationship Specialty Start Date End Date Byers, MD Traci [address] [place] [phone] PCP - General Internal Medicine 09/22/20
--- OUTSIDE RECORDS SUMMARY | 2025-01-14 13:12 | XMS_ITS | Encounter Summary ---
Author Organization [employer] Address [address] [facility] [address] [place] [address] Care Team Providers Care Executive Director Name Role Phone Traci Ruiz MD Primary Care Provider [phone]- [phone] Luisa Lee PharmD Unavailable +- [phone] Reason for Visit * Reason Onset Date Comments Referral 01/03/2025 Encounter Details Date Type Department Care Team ([facility] st Contact Info) Description 01/03/2025 Telephone [facility] [address] [place], [place] [phone] Traci Ruiz MD [address] [place], [place] [phone] Referral Social History Tobacco Use Types Packs/Day Years [...] your housing situation today? I have echo omar 11/29/[address] you li [...] AM EDT documented as of this encounter Miscellaneous Notes * Telephone Encounter - Josephine Pereyra RN - 01/03/2025 1:24 PM EST Images from the original note were not included. TC to pt in regards to message below: Traci Ruiz MD [facility] Team Nurses Please let Quique know the urology wants another ultrasound before scheduling for second opinion. Iplaced order. Pleas have him call us when it is done so we can place the referral. Thank you. Pt agrees to complete US and return call when completed. documented in this encounter Plan of Treatment Upcoming Encounters Date Type Department Care Team (Late st Contact Info) Description 02/04/2025 11:15 AM EDT Office Visit [facility] [address] [place] [address] Traci Ruiz MD [address] [place] [address] documented as of this encounter Goals Goal Patient Goal Type Associated Problems Recent Progress Patient-Stated? Author Blood Pressure < 140/90 Blood Pressure 124/80( 025 11:36 AM EST) No Piers-Gambl e, Luisa, PharmD documented as of this encounter Visit Diagnoses Not on filedocumented in this encounter Additional Health Concerns Assessment Noted Time PHQ-9 Depression Total Score: 0 04/30/20 24 8:55 AM EDT documented as of this encounter Care Teams Executive Director Relationship Specialty Start Date End Date Traci Ruiz MD [address] [place] [address] PCP - General Family Medicine 04/04/13 Luisa Lee, PharmD [address] [place] [phone] Pharmacist Internal Medicine 02/01/23 Cadence Mars NP [facility] [address] [place] [phone] Cardiology 11/22/24 Dr. Twyla Mireles MD Psychiatry 01/02/25 documented as of this encounter
--- OUTSIDE RECORDS SUMMARY | 2025-01-14 13:12 | XMS_ITS | Encounter Summary ---
Author Organization [employer] Address [address] [facility] 7t [place] [address] Care Team Providers Care Crane Crew Supervisor Name Role Phone Traci Ruiz MD Primary Care Provider +1- [phone] Luisa Lee PharmD Unavailable +1- [phone] Reason for Visit * Reason Comments Fever Headache Generalized Body Aches Encounter Details Date Type Department Care Team (Late st Contact Info) Description 12/19/2024 9:00 AM EST Office Visit [facility] [address] [place] [address] [phone] Toney Garcia MD [address] [place], [place] [phone] Influenza B (Primary Dx); Essential hypertension; Mild intermittent asthma without complication Social History Tobacco Use Types Packs/Day Years [...] Sign Reading Time Taken Comments Blood Pressure 142/92 12/19/2024 8:54 AM EST Pulse 96 12/19/2024 8:54 AM EST Temperature 36.9 ??C (98.5 ??F) 12/19/2024 8:54 AM ES T Respiratory Rate 17 12/19/2024 8:54 AM EST Oxygen Saturation 98% 12/19/2024 8:54 AM EST Inhaled Oxygen Concentration - - Weight 102 kg (225 lb 12.8 oz) 12/19/2024 8:54 A M EST Height - - Body Mass Index 31.49 04/30/2024 8:51 AM EDT documented in this encounter Progress Notes * Panda Hudson MA - 12/19/2024 9:00 AM EST poc * Toney Garcia MD - 12/19/2024 9:00 AM EST Subjective Patient ID: Quique Reddy is a 39 y.o. male. HPI 3 days ago Quique had onset of cough, stuff nose, body aches, tactile fever, chills. No n/v/d, SOB, wheezing. Taking liquids well. Taking Motrin, Tylrnol, OTC Cold and Flu med. Lives with . Not employed. Never smoked. Patient Active Problem List Diagnosis Essential hypertension Anxiety state Atrial fibrillation (CMS/HCC) Degeneration of lumbosacral intervertebral disc Dyslipidemia Gastroesophageal reflux disease Obesity, morbid (CMS/HCC) Obstructive sleep apnea of adult Fibromyalgia Routine screening for STI (sexually transmitted infection) Preventative health care Family planning Encounter for immunization The following portions of the chart were reviewed this encounter and updated as appropriate: Tobacco Allergies Meds Problems Med Hx Surg Hx Fam Hx Review of Systems Constitutional: Positive for chills and fever. HENT: Positive for rhinorrhea. Respiratory: Positive for cough. Cardiovascular: Negative for chest pain. Gastrointestinal: Negative for abdominal pain. Musculoskeletal: Positive for myalgias. Skin: Negative for rash. Neurological: Negative for headaches. Objective Physical Exam Constitutional: Appearance: Normal appearance. HENT: Right Ear: Tympanic membrane, ear canal and external ear normal. Left Ear: Tympanic membrane, ear canal and external ear normal. Nose: Nose normal. Mouth/Throat: Mouth: Mucous membranes are moist. Pharynx: Oropharynx is clear. Eyes: Conjunctiva/sclera: Conjunctivae normal. Pupils: Pupils are equal, round, and reactive to light. Cardiovascular: Rate and Rhythm: Normal rate and regular rhythm. Heart sounds: No murmur heard. Pulmonary: Effort: Pulmonary effort is normal. Breath sounds: Normal breath sounds. Musculoskeletal: General: Normal range of motion. Cervical back: No tenderness. Skin: Findings: No rash. Neurological: Mental Status: He is alert. Gait: Gait is intact. Psychiatric: Mood and Affect: Mood normal. Behavior: Behavior normal. Procedures Assessment/Plan Diagnoses and all orders for this visit: Influenza B + rapid Flu B test. Neg rapid Covid test. Drink lots of liquids. Prescribed acetaminophen, ibuprofen, refilled albuterol HFA to try for coughand prescribed chamber. Given written Flu instructions. Rtc if not improving. - POCT Rapid COVID Ag - Influenza A (ID NOW Rapid Molecular) - Influenza B (ID NOW Rapid Molecular) Essential hypertension States that home BP readings are in normal range, 120s systolic. - albuterol (Ventolin HFA) 108 (90 Base) MCG/ACT inhaler; INHALE 2 PUFFS BY MOUTH 4 X EVERY DAY NEEDED FOR SHORTNESS OF BREATH Other orders - acetaminophen (Tylenol) 500 MG tablet; Take 2 tablets (1,000 mg) by mouth every 6 (six) hours if needed for moderate pain or fever. - ibuprofen 800 MG tablet; Take 1 tablet (800 mg) by mouth every 8 (eight) hours if needed for moderate pain, fever or headaches for up to 10 days. - Spacer/Aero-Holding Chambers (OptiChamber Yana) misc; 1 each every 4 (four) hours if needed (asthma). documented in this encounter Miscellaneous Notes * Patient Education Note - Toney Garcia MD - 12/19/2024 2:24 PM EST Images from the original note were not included. Patient Education Table of Contents Gripe en los adultos (Influenza, Adult) To view videos and all your education online visit, [email or web address] or scan this QR code with your smartphone. Access to this content will in one year. Gripe en los adultos Influenza, Adult A la gripe tambi?n se la conoce wilfrido influenza. Es imelda infecci?n que afecta las v?as respiratorias.Estas incluyen la nariz, la garganta, la tr?quea y los pulmones. La gripe es contagiosa. [place] significa que se transmite f?cilmente de imelda persona a otra. Causa s?ntomas que son wilfrido un resfr?o. Tambi?n puede provocar fiebre jazmin y sandro corporales. ?Cu?les son las causas? La gripe es causada por el virus de la influenza. Puede contraerlo de las siguientes maneras: Al inhalar las gotitas que quedan en el aire despu?s de que imelda persona infectada tose o estornuda. Al tocar algo que est?? contaminado con el virus y luego llevarse la mano a la boca, la nariz o losojos. ?Qu?? incrementa el riesgo? Puede ser m?s propenso a contraer gripe si: No se lava las gustavo con frecuencia. Est?? cerca de muchas personas jose la temporada de resfr?o y gripe. Se toca la boca, los ojos o la nariz sin antes lavarse las gustavo. No recibe la vacuna antigripal todos los a?os. Tambi?n puede correr un mayor riesgo de tener gripe y problemas graves, wilfrido imelda infecci?n pulmonarllamada neumon?a, si: Tiene m?s de 65?a?os. Est?? embarazada. [place] sistema inmunitario est?? d?angelita. [place] sistema inmunitario es el sistema de defensa de [place] cuerpo. Tiene imelda afecci?n a shawn plazo, o cr?vivienne, wilfrido: ? Enfermedad pulmonar, card?franco o renal. ? Diabetes. ? Un trastorno del h?gado. ? Asma. Tiene sobrepeso. Tiene anemia. [place] ocurre cuando no tiene suficientes gl?bulos rojos en el cuerpo. ?Cu?les son los signos o s?ntomas? Los s?ntomas de la gripe suelen aparecer de repente. Pueden durar entre 4 y 14?d?as e incluir lo siguiente: Fiebre y escalofr?os. Sandro de godfrey, sandro en el cuerpo o sandro musculares. Dolor de garganta. Tos. Secreci?n o congesti?n nasal. Molestias en el pecho. No querer comer tanto wilfrido lo hace normalmente. Sensaci?n de debilidad o cansancio. Sensaci?n de mareo. N?useas o v?mitos. ?C?mo se diagnostica? La gripe puede diagnosticarse en funci?n de los s?ntomas y los antecedentes m?dicos. Tambi?n puedenhacerle un examen f?sico. Es posible que le armando un hisopado de la nariz o la garganta para detectar el virus. ?C?mo se trata? Si la gripe se detecta de forma temprana, puede recibir tratamiento con medicamentos antivirales. Estos se pueden administrar por boca o a arnulfo?s de imelda v?a intravenosa (i.v.). Pueden ayudarlo a sentirse menos enfermo y a mejorar m?s r?pido. Cuidarse en [place] hogar tambi?n puede ayudar a que mejoren pepe s?ntomas. El m?dico puede indicarle que: Tolar medicamentos de venta linnette. Elmira mucho l?quido. La gripe suele desaparecer steven. Si tiene s?ntomas muy graves o problemas provocados por la gripe, es posible que necesite recibir tratamiento en un hospital. Siga estas instrucciones en [place] casa: Actividad Descanse todo lo que sea necesario. Duerma mucho. Qu?dese en [place] casa y no concurra al trabajo o a la escuela, wilfrido se lo haya indicado [place] m?dico. ? Salga de [place] casa solo para ir al m?dico. ? No salga de [place] casa por otros motivos hasta que no haya tenido fiebre por 24?horas sin rahul medicamentos. Comida y bebida Tolar imelda soluci?n de rehidrataci?n oral (oral rehydration solution, ORS). Es imelda bebida que se vende en farmacias y tiendas. Elmira suficiente l?quido wilfrido para mantener la orina de color amarillo p?lido. Trate de beber saundra?as cantidades de l?quidos mercy. Estos incluyen agua, cubitos de hielo, jugo de fruta rebajado con agua y bebidas deportivas bajas en calor?as. Trate de comer alimentos suaves que mansoor f?ciles de digerir. Estos incluyen bananas, compota de manzana, arroz, stephy magras, tostadas y galletas saladas. Evite las bebidas con alto contenido de az?car o cafe?na. Estas incluyen las bebidas energ?charlee, las bebidas deportivas comunes y los refrescos. No elmira alcohol. No coma alimentos grasos o muy condimentados. Instrucciones generales Use los medicamentos solamente wilfrido se lo haya indicado el m?dico. Use un humidificador de aire fr?o para que el aire de [place] casa est?? m?s h?medo. [place] puede facilitar la respiraci?n. Tambi?n debe limpiar el humidificador todos los d?as. Para ello: ? Vac?e el agua. ? Vierta agua limpia. Al toser o estornudar, c?brase la boca y la nariz. L?vese las gustavo frecuentemente con agua y jab?n y jose al menos 20 segundos. Es sumamente importante que lo jm despu?s de toser o estornudar. Si no dispone de agua y jab?n, use un desinfectantepara gustavo. ?C?mo se previene? Col?quese la vacuna antigripal todos los a?os. Preg?ntele al m?dico cu?ndo debe recibir la vacuna contra la gripe. Mant?ngase alejado de las personas que est?n enfermas jose el sandra?o y el invierno. El sandra?o y elinvierno son la temporada de los resfr?os y la gripe. Comun?quese con un m?dico si: Tiene s?ntomas nuevos. Tiene dolor en el pecho. Tiene heces l?quidas, tambi?n llamado diarrea. Tiene fiebre. La tos empeora. Empieza a tener m?s mucosidad. Tiene ganas de vomitar o vomita. Solicite ayuda de inmediato si: Le falta el aire o tiene problemas para respirar. Observa que la piel o las u?as est?n azules. Presenta un dolor intenso o rigidez en el isra. Tiene un dolor de godfrey repentino o tiene dolor en la jose o el o?do. Vomita cada vez que come o nery. Estos s?ntomas pueden indicar imelda emergencia. Llame al 911 de inmediato. No espere a brandee si los s?ntomas desaparecen. No conduzca por pepe propios medios hasta el hospital. Esta informaci?n no tiene wilfrido fin reemplazar el consejo del m?dico. Aseg?rese de hacerle al m?dicocualquier pregunta que tenga. Document Released: 2006-07-27 Document Updated: 2024-01-26 Document Reviewed: 2023-11-26 [employer] Patient Education ? 2023 [employer]. documented in this encounter Plan of Treatment Upcoming Encounters Date Type Department Care Team ([facility] st Contact Info) Description 02/04/2025 11:15 AM EDT Office Visit [facility] [address] [place] [address] Traci Ruiz MD [address] [place] [address] documented as of this encounter Goals Goal Patient Goal Type Associated Problems Recent Progress Patient-Stated? Author Blood Pressure < 140/90 Blood Pressure 124/80( 025 11:36 AM EST) No Luisa Sim PharmD documented as of this encounter Procedures Procedure Name Priority Date/Time Associated Diagnosis Comments POCT INFLUENZA B (ID NOW RAPID MOLECULAR) Routine 12/19/2024 9:03 AM EST Influenza B POCT INFLUENZA A (ID NOW RAPID MOLECULAR) Routine 12/19/2024 9:03 AM EST Influenza B POCT RAPID COVID ANTIGEN Routine 12/19/2024 9:03 AM EST Influenza B documented in this encounter Results * (ABNORMAL) Influenza B (ID NOW Rapid Molecular) (12/19/2024 9:03 AM EST) [facility] Influenza B Positive( A) Negative, Indeterminate [facility] Swab 12/19/2024 9:03 AM EST us Toney Garcia MD POINT OF CARE TEST ENTER/EDIT OR DERABLES Final Result Performing Organization Address [facility] Co de Phone Number [facility] [address] [place] [phone] * Influenza A (ID NOW Rapid Molecular) (12/19/2024 9:03 AM EST) [facility] Influenza A Negative Negative, Indeterminate [facility] Swab 12/19/2024 9:03 AM EST us Toney Garcia MD POINT OF CARE TEST ENTER/EDIT OR DERABLES Final Result Performing Organization Address [facility] Co de Phone Number [facility] [address] [place] [phone] * POCT Rapid COVID Ag (12/19/2024 9:03 AM EST) Rapid COVID Ag Negative [facility] Swab 12/19/2024 9:03 AM EST us Toney Garcia MD POINT OF CARE TEST ENTER/EDIT OR DERABLES Final Result Performing Organization Address [facility] Co de Phone Number [facility] [address] [place] [address] [phone] documented in this encounter Visit Diagnoses Diagnosis Influenza B- Primary Influenza with other respiratory manifestations Essential hypertension Unspecified essential hypertension Mild intermittent asthma without complication documented in this encounter Additional Health Concerns Assessment Noted Time PHQ-9 Depression Total Score: 0 04/30/20 24 8:55 AM EDT documented as of this encounter Care Teams Crane Crew Supervisor Relationship Specialty Start Date End Date Traci Ruiz MD [address] [place] [address] PCP - General Family Medicine 04/04/13 Luisa Lee, SabihaD [address] [place] [phone] Pharmacist Internal Medicine 02/01/23 Cadence Mars NP [facility] [address] [address] Cardiology 11/22/24 documented as of this encounter
--- OUTSIDE RECORDS SUMMARY | 2025-01-14 13:12 | XMS_ITS | Encounter Summary ---
Author Organization [facility] [employer] [facility] Address [address] [facility] 7t [place] [address] Care Team Providers Care Sushi Chef Name Role Phone Traci Ruiz MD Primary Care Provider + [phone] Luisa Lee PharmD Unavailable [phone] Encounter Details Date Type Department Care Team (Latest Contact Info) Description 08/04/2022 Abstract [facility]VERSION[facility] Dental, Provider, DDS Social History Tobacco Use Types Packs/Day Years Used Date Smoking Tobacco: Never Assessed Sex and Gender Information Value Date Recorded Sex Assigned at Male 08/30/2022 10:17 AM EDT Legal Sex Male 10:17 AM EDT Gender Identity Male 08/30/2022 10:17 AM EDT Sexual Orientation Straight 08/30/2022 10 :17 AM EDT documented as of this encounter Plan of Treatment Upcoming Encounters Date Type Department Care Team (Late st Contact Info) Description 02/04/2025 11:15 AM EDT Office Visit [facility] [address] [place] [address] Traci Ruiz MD [address] [place] [address] documented as of this encounter Visit Diagnoses Not on filedocumented in this encounter Care Teams Sushi Chef Relationship Specialty Start Date End Date Traci Ruiz MD [address] [place] [address] PCP - General Family Medicine 04/04/13 Luisa Lee, PharmD [address] [place] [address] Pharmacist Internal Medicine 02/01/23 Cadence Mars NP [facility] [address] [facility] [address] [place] [address] Cardiology 11/22/24 Dr. Twyla Mireles MD Psychiatry 01/02/25 documented as of this encounter
--- OUTSIDE RECORDS SUMMARY | 2025-01-14 13:12 | XMS_ITS | Encounter Summary ---
Author Organization [employer] [facility] Address [address] [facility] 7t [place] [address] Care Team Providers Care Watershed Program Manager Name Role Phone Traci Ruiz MD Primary Care Provider + [phone] Luisa Lee PharmD Unavailable Encounter Details Date Type Department Care Team (Late st Contact Info) Description 10/29/2022 Abstract [facility] [address] [place] [phone] Luisa Lee, PharmD [address] [place] [address] Social History Tobacco Use Types Packs/Day Years Used Date Smoking Tobacco: Never Smokeless Tobacco: Never Sex and Gender Information Value Date Recorded Sex Assigned at Male 08/30/2022 10:17 AM EDT Legal Sex Male 10:17 AM EDT Gender Identity Male 08/30/2022 10:17 AM EDT Sexual Orientation Straight 08/30/2022 10 :17 AM EDT COVID-19 Exposure Response Date Recorded In the last 10 days, have yo u been in contact with someone who was confirmed or suspected to have Coronavirus/COVID-19? No / Unsure 10/28/2022 10:14 AM EST documented as of this encounter Plan of Treatment Upcoming Encounters Date Type Department Care Team (Late st Contact Info) Description 02/04/2025 11:15 AM EDT Office Visit [facility] [address] [place] [phone] Traci Ruiz MD [address] [place] [address] [phone] documented as of this encounter Visit Diagnoses Not on filedocumented in this encounter Care Teams Watershed Program Manager Relationship Specialty Start Date End Date Traci Ruiz MD [address] [place] [address] PCP - General Family Medicine 04/04/13 Luisa Lee PharmD [address] [place] [address] Pharmacist Internal Medicine 02/01/23 Cadence Mars NP [facility] [address] [place] [address] Cardiology 11/22/24 Dr. Twyla Mireles MD Psychiatry 01/02/25 documented as of this encounter
--- OUTSIDE RECORDS SUMMARY | 2025-01-14 13:12 | XMS_ITS | Encounter Summary ---
Author Organization [employer] Address [address] [facility] 7t [place] [address] Care Team Providers Care Third Loader Name Role Phone Traci Ruiz MD Primary Care Provider +- [phone] Luisa Lee PharmD Unavailable +- [phone] Reason for Referral * Imaging (Routine) - Authorized Specialty Diagnoses / Procedures Referred By Contac t Referred To Contact Radiology Diagnoses Pain in right testicle Procedures US Scrotum Traci Ruiz MD [address] [place] [phone] Phone: tel: fax: [address] Phone: tel: fax: Referral ID Status Reason Start Date Expiration Date V isits Requested Visits Authorized [id number] Authorized 01/03/2025 01/03/2026 1 1 Encounter Details Date Type Department Care Team (Late st Contact Info) Description 01/03/2025 Orders Only [facility] [address] [place] [address] [phone] Traci Ruiz MD [address] [place] [address] [phone] Pain in right testicle (Primary Dx) Social History Tobacco Use Types Packs/Day Years [...] Description 02/04/2025 11:15 AM EDT Office Visit [facility] [address] [place] [address] Traci Ruiz MD [address] [place] [address] Scheduled Orders Name Type Priority Associated Diagnoses Orde r Schedule US Scrotum Imaging Routine Pain in right testicle Expected: 01/03/2025, Expires: 01/03/2026 documented as of this encounter Goals Goal Patient Goal Type Associated Problems Recent Progress Patient-Stated? Author Blood Pressure < 140/90 Blood Pressure 124/80( 025 11:36 AM EST) No Luisa Sim PharmD documented as of this encounter Visit Diagnoses Diagnosis Pain in right testicle- Primary Unspecified disorder of male genital organs documented in this encounter Additional Health Concerns Assessment Noted Time PHQ-9 Depression Total Score: 0 04/30/20 24 8:55 AM EDT documented as of this encounter Care Teams Third Loader Relationship Specialty Start Date End Date Traci Ruiz MD [address] [place] [address] PCP - General Family Medicine 04/04/13 Luisa Lee, PharmD [address] [place] [address] Pharmacist Internal Medicine 02/01/23 Cadence Mars NP [facility] [address] [address] Cardiology 11/22/24 Dr. Twyla Mireles MD Psychiatry 01/02/25 documented as of this encounter
--- OUTSIDE RECORDS SUMMARY | 2025-01-14 13:12 | XMS_ITS | Encounter Summary ---
Author Organization [employer] Address [address] [facility] [address] [place] [address] Care Team Providers Care Candy Spreader Name Role Phone Traci Ruiz MD Primary Care Provider [phone]- [phone] Luisa Lee PharmD Unavailable [phone] Encounter Details Date Type Department Care Team (Latest Contact Info) Description 01/02/2025 Travel Social History Tobacco Use Types Packs/Day Years [...] Description 02/04/2025 11:15 AM EDT Office Visit [facility] [address] [place] [address] Traci Ruiz MD [address] [place] [address] documented as of this encounter Goals Goal [...] documented as of this encounter Care Teams Candy Spreader Relationship Specialty Start Date End Date Traci Ruiz MD [address] [place] [address] PCP - General Family Medicine 04/04/13 Luisa Lee, PharmD [address] [place] [phone] Pharmacist Internal Medicine 02/01/23 Cadence Mars NP [facility] [address] [address] Cardiology 11/22/24 Dr. Twyla Mireles MD Psychiatry 01/02/25 documented as of this encounter
== END 2025-01-14 11:11 | disposition home or self-care (01) ==
LOC: HO.HMGCX 11:10
PROVIDERS: PCP Family Medicine; Visit Provider Family Medicine
DX: N50.811 Right testicular pain (principal)
CPT/HCPCS: 76870

== ENCOUNTER → 2025-01-14 11:13 | Outpatient (BNV) | payer OTHER, SELFPAY | PROVIDERS: PCP Family Medicine; Visit Provider Radiology Diagnostic Radiology | DX: I86.1 Scrotal varices (principal); N50.3 Cyst of epididymis | CPT/HCPCS: 76870 ==